=== PATIENT | male | born 1935 | race Caucasian/White ===

== ENCOUNTER 2017-11-07 20:11 | Inpatient (IN) | payer MEDICARE, BC ==
[~2017-11-07] VITALS: Ht 177.8 cm; Wt 77.0 kg
--- NOTE | ~2017-11-07 | HEMODYNAMI ---
PATIENT:DINA HENRY MEDICAL RECORD: [id number] : 39 LOCATION:[facility] D.2113 ADMISSION DATE: 11/08/17 Generatedon:11/15/201713:30 Patient name: DINA HENRY Patient #: [id number] SSN: : 1935 Date of study: 11/15/2017 Page: Of Hemodynamic Procedure Report Patient Data Patient Demographics Procedure consent was obtained First Name: DINA Gender: Male Last Name: ELAINE : 1935 [facility] Initial: SOLITARIO Age: 81 year(s) Patient #: [id number] Race: Unknown Additional ID: [id number] Contact details [address]: [address] [place] [address] [place] State: [place] City: [place] Zip code: [address] Past Medical History Allergies Allergen Reaction Date Comments Reported Other allergy 11/15/2017 PCN, Statin, Reductase Inhibitor. Admission Admission Data Admission Date: 11/08/2017 Admission Time: 12:04 Admit Source: Other Room #: D.2113 Weight (lbs.): 160 Weight (kg.): 72.57 Lab Results Lab Result Date: 11/15/2017 Lab Result Time: 4:54 Biochemistry Name Units Result Min Max BUN mg/dl 26 --(----)-* 7 18 Creatinine mg/dl 1.4 --(----)*- 0.6 1.3 CBC Name Units Result Min Max Hematocrit % 39.4 -*(----)-- 42 54 Hemoglobin g/dl 12.8 -*(----)-- 13.5 17.5 Coagulation Name Units Result Min Max INR units 1.59 --(----)-* 0.85 1.17 PT sec 18.5 --(----)-* 11.6 15 Procedure Procedure Types Cath Procedure Diagnostic Procedure [facility] w/Coronaries Aortic Root Angiography Procedure Description Procedure Date Procedure Date: 11/15/2017 Procedure Start Time: 12:35 Procedure End Time: 13:29 Procedure Staff Name Function Tigre Perry MD Performing Physician Romeo Eisenberg RT Monitor Bismark Givens RT Scrub Shiva Mullins RN Nurse Procedure Data Cath Procedure Fluoroscopy Diagnostic fluoroscopy Total fluoroscopy Time: time: 21.8 min 21.8 min Diagnostic fluoroscopy Total fluoroscopy dose: dose: 1400 mGy 1400 mGy Contrast Material Contrast Material Type Amount (ml) Isovue 300 85 Entry Location Entry Primary Successful Side Size Upsize Upsize Entry Closure Succes sful Closure Location (Fr) 1 (Fr) 2 (Fr) Remarks Device Remarks Femoral Right 5 Fr Exoseal artery Femoral Right 7 Fr Exoseal vein Short Estimated blood loss: 10 ml Diagnostic catheters Device Type Used For End Catheter Placement SWAN 7Fr Thermodilution Procedure cather (131F7P) MULTIPACK JL 4.0 5Fr Procedure catheter MULTIPACK 3DRC 5Fr Procedure catheter MULTIPACK Pigtail 5 Fr Procedure catheter DIAGNOSTIC MPA-2 5Fr Procedure catheter ([id number]) MULTIPACK Pigtail 5 Fr Procedure catheter Procedure Complications No complications Procedure Medications Medication Administration Route Dosage Heparin Flush Bag added to field 2 bags (1000units/500ml NS) 0.9% NaCl I.V. 100 ml/hr Benadryl I.V. 50 mg Oxygen etCO2 Nasal cannula 2 l/min Versed I.V. 1 mg Fentanyl I.V. 50 mcg Versed I.V. 1 mg Hemodynamics Rest Heart Rate: 106 (bpm) Oxygen Saturations Time Location Saturations Hgb (g/dl) O2 Content Use (%) (ml/L) 12:40 RV 12:40 RA 12:41 PA 12:41 PCW 57.9 Pressure Samples Time Site Value (mmHg) Purpose Heart Use Rate(bpm) 13:01 AO 98/74(85) Snapshot 80 13:07 LV 123/11,19 EDP 86 13:08 LV 121/71,74 Snapshot 92 13:14 LV 116/13,22 EDP 80 Snapshots Pre Cath Intra NCS Post Cath Vital Signs Time Heart Resp SPO2 etCO2 NIBP (mmHg) Rhythm Pain Sedation Rate (ipm) (%) (mmHg) Status Level (bpm) 12:23:06 82 25 76 0 116/70(85) NSR 0 (11) 10(A) , No pain 12:27:07 84 13 97 0 124/92(109) NSR 0 (11) 10(A) , No pain 12:31:11 80 16 98 0 132/95(117) NSR 0 (11) 10(A) , No pain 12:35:19 78 16 27.5 135/97(111) NSR 0 (11) 9(A) , No pain 12:39:39 85 17 98 0 124/86(110) NSR 0 (11) 9(A) , No pain 12:43:47 84 16 99 0 128/86(96) NSR 0 (11) 9(A) , No pain 12:47:55 88 16 99 0 112/84(106) NSR 0 (11) 9(A) , No pain 12:52:03 87 16 99 0 114/73(91) NSR 0 (11) 9(A) , No pain 12:56:11 72 17 98 0 116/78(92) NSR 0 (11) 9(A) , No pain 13:00:16 84 16 98 0 112/82(96) NSR 0 (11) 9(A) , No pain 13:04:26 56 17 99 0 120/80(106) NSR 0 (11) 9(A) , No pain 13:08:28 83 17 97 0 118/82(100) NSR 0 (11) 9(A) , No pain 13:12:36 76 17 99 2.2 132/78(100) NSR 0 (11) 9(A) , No pain 13:16:37 60 16 99 16.3 125/90(108) NSR 0 (11) 9(A) , No pain 13:21:32 83 17 99 20.8 123/87(113) NSR 0 (11) 9(A) , No pain 13:26:27 93 17 98 24.5 120/88(106) NSR 0 (11) 9(A) , No pain Medications Time Medication Route Dose Verified Delivered Reason Notes Effe ctiveness by by 12:24:53 Heparin Flush added 2 Tigre Shiva used for Bag to bags Vicky Mullins RN procedure (1000units/500ml field NS) 12:25:05 0.9% NaCl I.V. 100 Tigre Sihva Per ml/hr Vicky Mullins RN physician 12:25:13 Benadryl I.V. 50 mg Tigre Shiva Per Vicky Mullins RN physician MD 12:31:19 Oxygen etCO2 2 Tigre Shiva Per Nasal l/min Vicky Mullins RN physician cannula MD 12:34:45 Versed I.V. 1 mg Tigre Shiva for Vicky Mullins RN sedation 13:00:28 Fentanyl I.V. 50 Tigre Shiva for mcg Vicky Mullins RN sedation 13:05:54 Versed I.V. 1 mg Tigre Shiva for Vicky Mullins RN sedation Procedure Log Time Note 12:00:23 Shiva Mullins RN sent for patient. Start room use. 12:05:56 Informed consent obtained and on chart 12:07:59 Admit Source: Other 12:08:21 Diagnostic Cath status Elective 12::23 Time tracking: Regular hours (M-F 7:00 - 5:00) 12:08:27 Plan of Care:Hemodynamics will remain stable., Cardiac rhythm will remain stable., Comfort level will be maintained., Respiratory function will remain adequate., Patient/ family verbilizes understanding of procedure., Procedure tolerated without complication., Recovers from procedure without complications.. 12:09:57 Lab Result : Creatinine 1.4 mg/dl 12:09:57 Lab Result : BUN 26 mg/dl 12:09:57 Lab Result : Hemoglobin 12.8 g/dl 12:09:57 Lab Result : Hematocrit 39.4 % 12:09:57 Lab Result : INR 1.59 units 12:09:57 Lab Result : PT 18.5 sec 12:10:00 Lab results completed and on chart. 12:10:17 H&P Date Dictated: 11/08/2017 Within 30 days and on chart.. 12:15:51 Patient received from Med II to CCL 2 Alert and oriented. Tansferred to table in Supine position. 12:15:52 Warm blankets applied, and jennifer hugger turned on for patient comfort. 12:15:52 Correct patient and procedure confirmed by team. 12:15:53 ECG and BP/O2 sat monitors applied to patient. 12:15:54 Pre-procedure instructions explained to patient. 12:15:55 Pre-op teaching completed and patient verbalized understanding. 12:15:57 Family in patients room. 12:15:58 Patient NPO since Midnight. 12:16:27 Patient allergic to Other allergyPCN, Statin, Reductase Inhibitor. 12:21:48 Vital chart was started 12:24:53 Heparin Flush Bag (1000units/500ml NS) 2 bags added to field was administered by Shiva Mullins RN; used for procedure; 12:25:05 0.9% NaCl 100 ml/hr I.V. was administered by Shiva Mullins RN; Per physician; 12:25:13 Benadryl 50 mg I.V. was administered by Shiva Mullins RN; Per physician; 12:29:54 Is the patient allergic to Iodine/contrast media? No. 12:29:55 Is patient on blood thinner?No 12:29:57 Patient diabetic? No. 12:30:00 Previous problem with sedation/anesthesia? No ? 12:30:03 Snore? Yes 12:30:04 Sleep apnea? No 12:30:05 Deviated septum? No 12:30:05 Opens mouth fully? Yes 12:30:06 Sticks out tongue? Yes 12:30:09 Airway obstruction? No ? 12:30:11 Dentures? No ? 12:30:13 Pre procedure: right dorsailis pedis pulse 1+ Palpable, but thready & weak; easily obliterated 12:30:16 Patient pain scale 0/10 ?. 12:31:06 IV patent on arrival in right hand with 0.9% NaCl at [facility]. 12:31:09 Right groin area was prepped with chlora-prep and draped in sterile fashion 12:31:11 Alarms reviewed by R. N. 12:31:11 Sharps counted by scrub and verified by R.N. 12:31:19 Oxygen 2 l/min etCO2 Nasal cannula was administered by Shiva Mullins RN; Per physician; 12:31:21 --------ALL STOP TIME OUT------ 12:31:22 Final Timeout: patient, procedure, and site verified with staff and physician. All members of the team are in agreement. 12:31:36 Right groin site verified by team. 12:31:38 Physical assessment completed. ASA score P 2 - A patient with mild systemic disease as per Tigre Perry MD. 12:31:42 Sedation plan: IV Moderate Sedation Medication:Versed, Fentanyl 12:34:17 Use device set Femoral Dx 12:34:25 Use device set Right Heart Kit 12:34:36 Tegaderm 4 x 4 (1626W) opened to sterile field. 12:34:36 PERCUTANEOUS ENTRY 19GA needle opened to sterile field. 12:34:38 ACIST Manifold (96369) opened to sterile field. 12:34:39 ACIST Hand Control (08908) opened to sterile field. 12:34:40 ACIST Syringe (54305) opened to sterile field. 12:34:41 Bag Decanter (2002S) opened to sterile field. 12:34:44 Medline Cath Pack ([id number]) opened to sterile field. 12:34:45 Versed 1 mg I.V. was administered by Shiva Mullins RN; for sedation; 12:34:49 DIAGNOSTIC WIRE .035 260cm J wire (054421) opened to sterile field. 12:34:50 DIAGNOSTIC Multipack 5Fr catheter set ([id number]) opened to sterile field. 12:34:51 MICROPUNCTURE 4FR Cook (I53972) opened to sterile field. 12:34:53 SHEATH Prelude 5Fr 0.035 (HUQ-4F-79-035) opened to sterile field. 12:34:58 SHEATH 7FR [place] (BRG807) opened to sterile field. 12:35:27 Procedure started. 12:35:27 Full Disclosure recording started 12:35:30 Local anesthetic to right femoral artery with Lidocaine 2% by Tigre Perry MD.INITIAL ACCESS ONLY 12:39:13 Access obtained with 4Fr micropunture. 12:39:30 A 5 Fr sheath was inserted into the Right Femoral artery 12:39:37 A 7 Fr Short sheath was inserted into the Right Femoral vein 12:40:00 A SWAN 7Fr Thermodilution cather (131F7P) was advanced over the wire and used for Procedure. 12:40:31 Zero performed for pressure channel P1 12:40:34 Zero performed for pressure channel P1 12:40:55 RV saturation: % 12:40:57 RA saturation: % 12:41:03 PA saturation: % 12:41:11 PCW saturation: 57.9% 12:42:12 Patient Weight : 160 lbs 12:42:58 DIAGNOSTIC WIRE .025 150cm J (600823) opened to sterile field. 12:43:17 .025 J wire used to advanced catheter. 12:43:31 Baseline sample Acquired. 12:43:35 Rhythm: sinus rhythm 13:00:16 Unable to advance catheter to obtain appropriate measurements. Catheter removed. 13:00:28 Fentanyl 50 mcg I.V. was administered by Shiva Mullins RN; for sedation; 13:00:36 A MULTIPACK JL 4.0 5Fr catheter was advanced over the wire and used for Procedure. 13:01:45 LCA angiography performed. 13:02:48 Catheter exchanged over wire. 13:03:11 A MULTIPACK 3DRC 5Fr catheter was advanced over the wire and used for Procedure. 13:04:03 RCA angiography performed. 13:04:59 Catheter exchanged over wire. 13:05:54 Versed 1 mg I.V. was administered by Shiva Mullins RN; for sedation; 13:06:40 A MULTIPACK Pigtail 5 Fr catheter was advanced over the wire and used for Procedure. 13:08:58 LV hemodynamics recorded. 13:10:32 Catheter exchanged over wire. 13:11:11 GLIDE WIRE ANGLE 260cm (AW4785) opened to sterile field. 13:11:15 A DIAGNOSTIC MPA-2 5Fr catheter (213604P) was advanced over the wire and used for Procedure. 13:13:56 Glidewire advanced to cross valve. 13:14:23 LV angiography performed. 13:14:24 LV gram done using RED 13:16:14 Injector settings: Ml/sec: 8, Volume: 20, 13:16:18 Catheter exchanged over wire. 13:16:32 A MULTIPACK Pigtail 5 Fr catheter was advanced over the wire and used for Procedure. 13:18:06 Aortic Root visualized 13:18:12 Injector settings: Ml/sec: 15, Volume: 30, 13:18:18 Catheter exchanged over wire. 13:18:35 EXOSEAL 5Fr (EX500) opened to sterile field. 13:18:44 EXOSEAL 7Fr (EX700) opened to sterile field. 13:20:16 Sheath removed intact; hemostasis achieved with Exoseal to the Right Femoral artery. 13:20:22 Sheath removed intact; hemostasis achieved with Exoseal to the Right Femoral vein. 13:20:43 Procedure ended.(Physican Out) 13:21:30 Fluoroscopy time 21.80 minutes. 13:21:36 Flurop Dose total: 1400 13:21:36 Fluoroscopy dose: 1400 mGy 13:22:21 Contrast amount:Isovue 300 85ml. 13:22:23 Sharps counted by scrub and verified by R.N. 13:22:27 Insertion/operative site no bleeding no hematoma. 13:22:41 Post-op/insertion site Right Femoral artery dressed using a 4 x 4 and Tegaderm. 13:22:45 Post Procedure Pulses reassessed and unchanged 13:23:03 Post-procedure physical assessment completed. ASA score P 2 - A patient with mild systemic disease as per Tigre Perry MD. 13:23:08 Post procedure rhythm: unchanged. 13:23:15 Estimated blood loss: 10 ml 13:23:21 Post procedure instruction explained to patient.Patient verbalizes understanding. 13:23:22 Patient needs reinforcement of post procedure teaching. 13:23:40 Procedure type changed to Cath procedure, Diagnostic procedure, LHC, LHC w/Coronaries, Aortic Root Angiography 13:23:46 Procedure Complication : No complications 13:26:03 Procedure and supply charges have been captured, reviewed, submitted and are correct. 13:29:52 Vital chart was stopped 13:29:52 See physician's report for complete and final results. 13:29:54 Report given to PCU. 13:29:57 Patient transfered to PCU with Bed. 13:29:58 Procedure ended. 13:29:58 Full Disclosure recording stopped 13:30:06 End room use (Document Last) Device Usage Item Name Manufacture Quantity Catalog Number Hospital Part Current M inimal Lot# / Charge Number Stock Stock Serial# Code Tegaderm 4 x 4 3M 1 [id number] [id number] 5 (1626W) PERCUTANEOUS Cook Medical 1 [id number] 143339 [id number] 5 ENTRY 19GA needle ACIST Manifold Acist 1 96392 857502 706017 575135 5 (67710) [employer] Inc ACIST Hand Acist 1 51353 547505 833216 015487 5 Control (89507) [employer] Inc ACIST Syringe Acist 1 66558 419959 792017 703156 2 0 (71987) Medical Systems Inc Bag Decanter Microtek 1 335126 07359 270393 5 () Medical Inc. Medline Cath Cardinal 1 [id number] 288011 31702 186690 5 Pack Health ([id number]) DIAGNOSTIC WIRE [place] 1 594561 870464 922538 074383 3 0 .035 260cm J wire (474838) DIAGNOSTIC Cardinal 1 JC8243 461743 95940 954030 3 0 Multipack 5Fr Health catheter set (KZ9435) MICROPUNCTURE Cook Medical 1 Y28011 367720 718321 948532 5 4FR Cook (O61555) SHEATH Prelude Merit 1 PFQ-9K-24-035 580116 612507 507248 5 5Fr 0.035 Medical (ECW-5I-36-035) SHEATH 7FR Terumo 1 BYT849 072187 090789 549673 5 [place] (OCZ654) SWAN 7Fr Pandya 1 131F7P 604927 43961 422418 3 Thermodilution Lifesciences cather (131F7P) DIAGNOSTIC WIRE [place] 1 265581 020301 479537 523056 2 .025 150cm J (297626) MULTIPACK JL Cardinal 1 510494 5 4.0 5Fr Health catheter MULTIPACK 3DRC Cardinal 1 599029 5 5Fr catheter Health MULTIPACK Cardinal 1 815236 5 Pigtail 5 Fr Health catheter GLIDE WIRE Terumo 1 SF1157 733630 712191 375540 5 ANGLE 260cm (IF2726) DIAGNOSTIC Cardinal 1 [id number] 053042 608748 313740 5 MPA-2 5Fr Health catheter (947653W) EXOSEAL 5Fr Cardinal 1 EX500 754386 775574 571535 1 0 (EX500) Health EXOSEAL 7Fr Cardinal 1 EX700 190822 067545 021921 5 (EX700) Health Signature Audit [place] Stage Time Signature Unsigned Intra-Procedure 11/15/2017 Romeo Eisenberg 1:30:29 PM RT(R) Signatures Monitor : Romeo Eisenberg RT Signature : Date : Time : [address] [place] [address]
--- NOTE | ~2017-11-07 | EC ---
PATIENT:DINA HENRY DATE OF SERVICE: 11/08/17 SEX: M MEDICAL RECORD: [id number] DATE OF : 39 LOCATION:D.M2 D.211 AGE OF PATIENT: 81 ADMISSION DATE: 11/08/17 REFERRING PHYSICIAN: INTERPRETING PHYSICIAN: DEEPAK VELA MD ECHOCARDIOGRAM REPORT ECHO CHARGES 4 ECHO COMPLETE Date: 11/08 CLINICAL DIAGNOSIS: CHF HX OF ICD/MURMUR ECHOCARDIOGRAPHIC MEASUREMENTS (adult normal given) AC root (d.<3.7cm) 4.3 cm LV Septum d (<1.2 cm> 1.9 cm Valve Excursion 1.4 cm LV Septum (systole) 2.5 cm Left Atria (s.<4.0cm> 6.7 cm LVPW d(<1.2cm) 1.8 cm RV (d.<2.3cm) 5.5 cm LVPW (sytole) 2.0 cm LV diastole(<5.6CM) 5.3 cm MV E-F(>70mm/sec) cm LV systole 3.4 cm LVOT Diameter 1.7 cm MV exc.(>10mm) 2.0 cm Est.ejection fraction (50-75%) % DOPPLER: LVIT cm/sec A 65.0 cm/sec E 131 cm/sec LA cm/sec RVSP 36 mmHg LVOT 98 cm/sec AOP1/2T m/s Asc. Ao 202 cm/sec RVOT 61 cm/sec RA cm/sec PA 148 cm/sec AV Gradient Peak 16.28mmHg AV Mean 9.18 mmHg AV Area 1.1 cm MV Gradient Peak 13.79mmHg MV Mean 4.42 mmHg MV Area cm COMMENTS: Reclamation Engineer: Dwight OQUENDO Membership Advisor: 1 Dr. Vela TAPE# PACS Pericardial Effusion N DATE OF SERVICE: 11/08/2017 PROCEDURE: Echocardiogram. FINDINGS: 1. Left ventricular chamber size is within normal limits. Left ventricular systolic function is normal. Overall ejection fraction estimated at 55%. 2. Left atrium is enlarged at 5.5 cm. Right atrium and right VENTRICULAR CHAMBER sizes are as well mildly dilated. 3. Valvular structures: Aortic valve demonstrates mild calcific aortic ECHOCARDIOGRAM REPORT [id number] DINA HENRY stenosis, valve area calculates 1.1 cm-squared gradient of 60 mm across the valve. The remaining valvular structures have normal structure and motion. 4. Doppler interrogation elsewise reveals mild mitral regurgitation, mild tricuspid regurgitation, no other valvular insufficiency or stenosis. Pulmonary systolic pressure is estimated 36 mmHg. 5. No evidence of pericardial effusion or left ventricular thrombus. TRANSINT:[id number] Voice Confirmation ID: [id number] DOCUMENT ID: [id number] DEEPAK VELA MD at 1218 CC: [id number] DICTATION DATE: 11/08/17 1551 SCHOOL LUNCH MONITOR: 11/08/17 1638 ADM IN [facility] [address] [id number]
--- NOTE | ~2017-11-07 | HEMODYNAMI ---
PATIENT:DINA HENRY MEDICAL RECORD: [id number] : 37 LOCATION:[facility] D.2113 ADMISSION DATE: 11/08/17 Generatedon:11/17/20179:20 Patient name: DINA HENRY Patient #: [id number] SSN: : 1935 Date of study: 11/17/2017 Page: Of Hemodynamic Procedure Report Patient Data Patient Demographics Procedure consent was obtained First Name: DINA Gender: Male Last Name: ELAINE : 1935 [facility] Initial: SOLITARIO Age: 81 year(s) Patient #: [id number] Race: Unknown Additional ID: [id number] Contact details Address: [address] [place] [address] [place] State: [place] City: [place] Zip code: [address] Past Medical History Allergies Allergen Reaction Date Comments Reported Other allergy 11/15/2017 PCN, Statin, Reductase Inhibitor. Admission Admission Data Admission Date: 11/08/2017 Admission Time: 12:04 Admit Source: Other Room #: D.2113 Weight (lbs.): 160 Weight (kg.): 72.57 Lab Results Lab Result Date: 11/15/2017 Lab Result Time: 4:54 Biochemistry Name Units Result Min Max BUN mg/dl 26 --(----)-* 7 18 Creatinine mg/dl 1.4 --(----)*- 0.6 1.3 CBC Name Units Result Min Max Hematocrit % 39.4 -*(----)-- 42 54 Hemoglobin g/dl 12.8 -*(----)-- 13.5 17.5 Coagulation Name Units Result Min Max INR units 1.59 --(----)-* 0.85 1.17 PT sec 18.5 --(----)-* 11.6 15 Procedure Procedure Types Cath Procedure Diagnostic Procedure CHUCKY Procedure Description Procedure Date Procedure Date: 11/17/2017 Procedure Start Time: 9:05 Procedure End Time: 9:13 Procedure Staff Name Function Jaqui Stock RT Monitor Yessenia Baker RN Nurse Jovanni Obrien MD Additional personnel Michael Baum Auto Rental Clerk Tigre Perry MD Performing Physician Leora Griggs RT Scrub Procedure Data Cath Procedure Fluoroscopy Diagnostic fluoroscopy Total fluoroscopy Time: 0 time: 0 min min Diagnostic fluoroscopy Total fluoroscopy dose: 0 dose: 0 mGy mGy Contrast Material Contrast Material Type Amount (ml) Isovue 300 0 Estimated blood loss: 0 ml Procedure Complications No complications Procedure Medications Medication Administration Route Dosage Oxygen NC 2 l/min Refer to Anesthesia Notes for Sedation Medications unlisted medication Hemodynamics Rest HGB: 12.8 (g/dl) Heart Rate: 88 (bpm) Snapshots Pre Cath Intra NCS Post Cath Vital Signs Time Heart Resp SPO2 etCO2 NIBP (mmHg) Rhythm Pain Sedation Rate (ipm) (%) (mmHg) Status Level (bpm) 8:49:20 89 16 96 0 132/81(108) A-Fib 0 (11) 10(A) , No pain 8:54:38 93 12 99 30.6 119/73(103) A-Fib 0 (11) 10(A) , No pain 8:59:16 62 19 100 27.6 130/91(115) A-Fib 0 (11) 10(A) , No pain 9:03:59 89 13 100 29.9 134/91(106) A-Fib 0 (11) 10(A) , No pain 9:08:44 96 12 98 23.1 137/83(99) A-Fib 0 (11) 9(A) , No pain 9:13:24 93 13 98 27.6 114/69(97) A-Fib 0 (11) 9(A) , No pain 9:18:30 88 14 100 17.9 102/62(85) A-Fib 0 (11) 10(A) , No pain Medications Time Medication Route Dose Verified Delivered Reason Notes Effectiven ess by by 8:52:57 Oxygen NC 2 Tigre Casas used for l/min Vicky Baker RN procedure MD 8:53:02 Refer to Tigre Casas Anesthesia Vicky Baker RN Notes for MD Sedation Medications 8:58:35 maalox and gargle Tigreivette Casas visc Vicky Baker RN lidocaine Procedure Log Time Note 8:39:17 Patient Weight : 160 lbs 8:39:52 Informed consent obtained and on chart 8:39:58 Diagnostic Cath Status : Elective 8:40:17 Leora Griggs RT(R) sent for patient. Start room use. 8:40:18 Time tracking: Regular hours (M-F 7:00 - 5:00) 8:40:24 Plan of Care:Hemodynamics will remain stable., Cardiac rhythm will remain stable., Comfort level will be maintained., Respiratory function will remain adequate., Patient/ family verbilizes understanding of procedure., Procedure tolerated without complication., Recovers from procedure without complications.. 8:42:47 Patient received from Med II to CCL 1 Alert and oriented. Tansferred to table in Supine position. 8:42:49 ECG and BP/O2 sat monitors applied to patient. 8:42:49 Correct patient and procedure confirmed by team. 8:42:49 Warm blankets applied, and jennifer hugger turned on for patient comfort. 8:46:14 Baseline sample Acquired. 8:46:49 Rhythm: atrial fibrillation 8:46:50 Full Disclosure recording started 8:46:54 H&P Date Dictated: 11/17/2017 Within 30 days and on chart.. 8:46:57 Pre-op teaching completed and patient verbalized understanding. 8:46:57 Pre-procedure instructions explained to patient. 8:46:59 Family in waiting room. 8:47:00 Patient NPO since Midnight. 8:47:03 Is the patient allergic to Iodine/contrast media? No. 8:47:04 Was the patient premedicated? No 8:47:32 Is patient on blood thinner?No 8:47:34 Patient diabetic? No. 8:47:37 Previous problem with sedation/anesthesia? No ? 8:47:39 Snore? Yes 8:47:41 Sleep apnea? No 8:47:42 Opens mouth fully? Yes 8:47:42 Deviated septum? No 8:47:43 Sticks out tongue? Yes 8:47:46 Airway obstruction? No ? 8:47:56 Dentures? No loose teeth 8:48:05 Pre procedure: right dorsailis pedis pulse 2+ Normal; easily identifiable; not easily obliterated 8:48:07 Pre procedure: left dorsailis pedis pulse 2+ Normal; easily identifiable; not easily obliterated 8:48:09 Patient pain scale 0/10 ?. 8:48:15 IV patent on arrival in right hand with 0.9% NaCl at KVO. 8:48:17 Lab results completed and on chart. 8:48:29 Vital chart was started 8:48:45 Alarms reviewed by R. N. 8:48:46 Sharps counted by scrub and verified by R.N. 8:48:50 --------ALL STOP TIME OUT------ 8:48:50 Physician arrived 8:48:51 Final Timeout: patient, procedure, and site verified with staff and physician. All members of the team are in agreement. 8:48:58 Physical assessment completed. ASA score P 3 - A patient with severe systemic disease as per Tigre Perry MD. 8:49:03 Sedation plan: TIVA Medication:Propofol 8:50:27 Jovanni Obrien MD present and monitoring patient for TIVA. 8:52:57 Oxygen 2 l/min NC was administered by Yessenia Baker RN; used for procedure; 8:53:02 Refer to Anesthesia Notes for Sedation Medications was administered by Yessenia Baker RN; ; 8:58:35 maalox and visc lidocaine gargle was administered by Yessenia Baker RN; ; 9:03:48 Michael Baum Cake Press Operator present for CHUCKY. 9:05:36 Procedure started. 9:05:37 CHUCKY started. 9:11:48 CHUCKY completed. 9:12:00 Procedure ended.(Physican Out) 9:12:10 Fluoroscopy time 00.00 minutes. 9:12:14 Fluoroscopy dose: 0 mGy 9:12:14 Flurop Dose total: 0 9:12:18 Contrast amount:Isovue 300 0ml. 9:12:20 Sharps counted by scrub and verified by R.N. 9:12:23 Insertion/operative site no bleeding no hematoma. 9:12:35 Post Procedure Pulses reassessed and unchanged 9:12:38 Post procedure rhythm: unchanged. 9:12:41 Estimated blood loss: 0 ml 9:12:43 Post procedure instruction explained to patient.Patient verbalizes understanding. 9:12:44 Patient needs reinforcement of post procedure teaching. 9:12:49 Procedure and supply charges have been captured, reviewed, submitted and are correct. 9:12:55 Procedure Complication : No complications 9:12:58 See physician's report for complete and final results. 9:12:58 Vital chart was stopped 9:13:04 Report given to Med II. 9:13:18 Patient transfered to Med II with Stretcher. 9:13:20 Full Disclosure recording stopped 9:13:20 Procedure ended. 9:13:25 End room use (Document Last) Signature Audit [place] Stage Time Signature Unsigned Intra-Procedure 11/17/2017 Jaqui Stock RT(R) 9:19:34 AM RT(R) 11/17/2017 9:20:26 AM Intra-Procedure 11/17/2017 Jaqui Stock 9:20:50 AM RT(R) Signatures Monitor : Jaqui Stock RT Signature : Date : Time : [id number] [place] [address]
[2017-11-07 21:14] LABS: ALBUMIN 3.4 g/dL (3.4-5.0); ANION GAP 11.6 mmol/L (8-16); BILIRUBIN - TOTAL 3.48 mg/dL (0.2-1.3); CALCIUM 9.2 mg/dL (8.5-10.1); CARBON DIOXIDE 30.2 mmol/L (21.0-32.0); CREATININE - SERUM 1.4 mg/dL (0.6-1.3); POTASSIUM - SERUM 4.8 mmol/L (3.5-5.1); PROTEIN - SERUM 6.3 g/dL (6.4-8.2)
[2017-11-07 21:31] LABS: BASOPHILS 0.5 % (0-2); EOSINOPHILS 1.7 % (0-7); HEMATOCRIT 41.9 % (42.0-54.0); HEMOGLOBIN 14.1 g/dL (13.5-17.5); IMMATURE GRANULOCYTES 0.2 % (0-5); LYMPHOCYTES 17.5 % (15-50); MCH 35.4 pg (26.0-34.0); MCHC 33.7 g/dL (31.0-37.0); MCV 105.3 fL (80.0-100.0); MEAN PLATELET VOLUME 11.5 fL (7.4-10.4); MONOCYTES 15.1 % (2-11); PLATELET COUNT 89 10x3/uL (130-400); RBC 3.98 10x6/uL (4.20-6.10); WBC 4.2 10x3/uL (4.8-10.8)
[2017-11-07 21:54] LABS: INR 2.37 (0.85-1.17); PROTIME 25.2 SECONDS (11.6-15.0)
[2017-11-07 22:04] LABS: APPEARANCE CLEAR (CLEAR); BILIRUBIN NEGATIVE (NEGATIVE); COLOR YELLOW (YELLOW); GLUCOSE NEGATIVE (NEGATIVE); KETONE NEGATIVE (NEGATIVE); NITRITE NEGATIVE (NEGATIVE); PROTEIN TRACE mg/dL (NEGATIVE); SPECIFIC GRAVITY 1.015 (1.005-1.020); UROBILINOGEN NORMAL (NORMAL)
[2017-11-07 22:49] LABS: PLATELET ESTIMATE DECREASED
[2017-11-07] MEDS ORDERED: BETAPACE 80 MG80 MG PO (23:13)
[2017-11-07] MEDS ORDERED: BUMEX2 MG PO (23:13)
[2017-11-07] MEDS ORDERED: KEFLEX500 MG PO (23:14)
[2017-11-07] MEDS ORDERED: K-DUR20 MEQ PO (23:14)
[2017-11-07] MEDS ORDERED: COUMADIN3 MG PO (23:15)
[2017-11-07] MEDS ORDERED: MILK OF MAGNESI30 ML PO (23:16)
[2017-11-07] MEDS ORDERED: COLACE100 MG PO (23:16)
[2017-11-07] MEDS ORDERED: MORPHINE IMMEDI15 MG PO (23:18)
[2017-11-08 00:31] VITALS: BMI 26.6
[2017-11-08 00:49] VITALS: BP 107/47
[2017-11-08 05:12] VITALS: BP 113/63
[2017-11-08 08:14] VITALS: BP 101/72
[2017-11-08 11:53] VITALS: BP 100/61
[2017-11-08 14:12] VITALS: BMI 27.4
[2017-11-08 17:06] VITALS: BP 108/63
[2017-11-08 19:32] LABS: % SATURATION 23 % (15-55); IRON 60 ug/dl (35-150); TOTAL IRON BIND CAPACITY 251 ug/dl (260-445); UNSAT IRON BIND CAPACITY 191 ug/dl (150-375)
[2017-11-08 21:09] VITALS: BP 107/63
[2017-11-09 05:54] VITALS: BP 100/59
[2017-11-09 06:50] LABS: BASOPHILS 0.5 % (0-2); EOSINOPHILS 3.5 % (0-7); HEMATOCRIT 38.7 % (42.0-54.0); LYMPHOCYTES 22.4 % (15-50); MCH 34.9 pg (26.0-34.0); MCHC 33.6 g/dL (31.0-37.0); MCV 103.8 fL (80.0-100.0); MEAN PLATELET VOLUME 11.6 fL (7.4-10.4); MONOCYTES 18.9 % (2-11); NEUTROPHILS 54.7 % (40-80); PLATELET COUNT 79 10x3/uL (130-400); RBC 3.73 10x6/uL (4.20-6.10); RDW 17.2 % (11.5-14.5); WBC 3.8 10x3/uL (4.8-10.8)
[2017-11-09 07:05] LABS: ANION GAP 12.5 mmol/L (8-16); CALCIUM 8.7 mg/dL (8.5-10.1); CARBON DIOXIDE 28.4 mmol/L (21.0-32.0); CREATININE - SERUM 1.5 mg/dL (0.6-1.3)
[2017-11-09 07:06] LABS: POTASSIUM - SERUM 3.9 mmol/L (3.5-5.1)
[2017-11-09 08:52] VITALS: BP 108/83
[2017-11-09 12:47] VITALS: BP 117/73
[2017-11-09 16:07] LABS: INR 3.23 (0.85-1.17); PROTIME 32.2 SECONDS (11.6-15.0)
[2017-11-09 18:08] VITALS: BP 116/80
[2017-11-09 20:00] VITALS: BP 94/46
[2017-11-09 22:40] LABS: INR 2.92 (0.85-1.17); PROTIME 29.7 SECONDS (11.6-15.0)
[2017-11-10] VITALS: BP 112/69
[2017-11-10 04:00] VITALS: BP 105/71
[2017-11-10 05:23] LABS: BASOPHILS 0.3 % (0-2); EOSINOPHILS 2.1 % (0-7); HEMATOCRIT 39.1 % (42.0-54.0); HEMOGLOBIN 13.1 g/dL (13.5-17.5); LYMPHOCYTES 16.5 % (15-50); MCH 35.2 pg (26.0-34.0); MCHC 33.5 g/dL (31.0-37.0); MCV 105.1 fL (80.0-100.0); MEAN PLATELET VOLUME 11.4 fL (7.4-10.4); NEUTROPHILS 57.1 % (40-80); PLATELET COUNT 88 10x3/uL (130-400); RBC 3.72 10x6/uL (4.20-6.10); RDW 17.5 % (11.5-14.5); WBC 3.8 10x3/uL (4.8-10.8)
[2017-11-10 05:44] LABS: ANION GAP 9.9 mmol/L (8-16); CALCIUM 8.6 mg/dL (8.5-10.1); CREATININE - SERUM 1.4 mg/dL (0.6-1.3); POTASSIUM - SERUM 3.9 mmol/L (3.5-5.1)
[2017-11-10 06:53] LABS: INR 3.08 (0.85-1.17); PROTIME 31.1 SECONDS (11.6-15.0)
[2017-11-10 08:39] VITALS: BP 105/71
[2017-11-10 09:46] LABS: FOLATE (FOLIC ACID) - SERUM 18.1 ng/mL (>3.0)
[2017-11-10 11:57] VITALS: BP 108/69
[2017-11-10 15:54] VITALS: BP 110/53
[2017-11-10 20:00] VITALS: BP 118/70
[2017-11-10 20:15] LABS: PROTIME 25.4 SECONDS (11.6-15.0)
[2017-11-10 20:24] LABS: INR 2.39 (0.85-1.17)
[2017-11-11] VITALS: BP 106/66
[2017-11-11 04:00] VITALS: BP 134/80
[2017-11-11 05:48] LABS: BASOPHILS 0.5 % (0-2); EOSINOPHILS 2.9 % (0-7); HEMATOCRIT 39.6 % (42.0-54.0); HEMOGLOBIN 13.2 g/dL (13.5-17.5); IMMATURE GRANULOCYTES 0.3 % (0-5); LYMPHOCYTES 17.5 % (15-50); MCH 34.9 pg (26.0-34.0); MCHC 33.3 g/dL (31.0-37.0); MCV 104.8 fL (80.0-100.0); MONOCYTES 20.9 % (2-11); NEUTROPHILS 57.9 % (40-80); PLATELET COUNT 90 10x3/uL (130-400); RBC 3.78 10x6/uL (4.20-6.10); RDW 17.6 % (11.5-14.5); WBC 3.8 10x3/uL (4.8-10.8)
[2017-11-11 05:58] LABS: ANION GAP 10.2 mmol/L (8-16); CALCIUM 8.6 mg/dL (8.5-10.1); CARBON DIOXIDE 31.6 mmol/L (21.0-32.0); CREATININE - SERUM 1.4 mg/dL (0.6-1.3); POTASSIUM - SERUM 3.8 mmol/L (3.5-5.1)
[2017-11-11 08:16] VITALS: BP 88/58
[2017-11-11 09:42] LABS: INR 2.18 (0.85-1.17); PROTIME 23.6 SECONDS (11.6-15.0)
[2017-11-11 11:59] VITALS: BP 103/62
[2017-11-11 16:04] VITALS: BP 112/66
[2017-11-11 20:44] VITALS: BP 118/74
[2017-11-12 01:11] VITALS: BP 105/66
[2017-11-12 05:43] LABS: ANION GAP 9.2 mmol/L (8-16); CALCIUM 8.3 mg/dL (8.5-10.1); CARBON DIOXIDE 30.5 mmol/L (21.0-32.0); CREATININE - SERUM 1.2 mg/dL (0.6-1.3); POTASSIUM - SERUM 3.7 mmol/L (3.5-5.1)
[2017-11-12 05:46] VITALS: BP 104/64
[2017-11-12 05:47] LABS: INR 1.96 (0.85-1.17); PROTIME 21.7 SECONDS (11.6-15.0)
[2017-11-12 05:49] LABS: BASOPHILS 0.8 % (0-2); EOSINOPHILS 3.2 % (0-7); HEMATOCRIT 38.6 % (42.0-54.0); HEMOGLOBIN 12.8 g/dL (13.5-17.5); LYMPHOCYTES 20.2 % (15-50); MCH 34.9 pg (26.0-34.0); MCHC 33.2 g/dL (31.0-37.0); MCV 105.2 fL (80.0-100.0); MEAN PLATELET VOLUME 11.9 fL (7.4-10.4); MONOCYTES 18.4 % (2-11); NEUTROPHILS 57.4 % (40-80); PLATELET COUNT 79 10x3/uL (130-400); RBC 3.67 10x6/uL (4.20-6.10); RDW 17.8 % (11.5-14.5); WBC 3.8 10x3/uL (4.8-10.8)
[2017-11-12 08:26] VITALS: BP 94/55
[2017-11-12 11:51] VITALS: BP 103/67
[2017-11-12 16:33] VITALS: BP 106/66
[2017-11-12 20:46] VITALS: BP 106/53
[2017-11-13 01:06] VITALS: BP 87/40
[2017-11-13 06:10] VITALS: BP 89/55
[2017-11-13 06:22] LABS: BASOPHILS 0.3 % (0-2); EOSINOPHILS 4.2 % (0-7); HEMATOCRIT 39.6 % (42.0-54.0); IMMATURE GRANULOCYTES 0.3 % (0-5); LYMPHOCYTES 17.2 % (15-50); MCH 34.7 pg (26.0-34.0); MCHC 32.8 g/dL (31.0-37.0); MCV 105.6 fL (80.0-100.0); MEAN PLATELET VOLUME 11.2 fL (7.4-10.4); MONOCYTES 17.7 % (2-11); NEUTROPHILS 60.3 % (40-80); PLATELET COUNT 75 10x3/uL (130-400); RBC 3.75 10x6/uL (4.20-6.10); RDW 17.8 % (11.5-14.5); WBC 3.6 10x3/uL (4.8-10.8)
[2017-11-13 06:43] LABS: ANION GAP 11.3 mmol/L (8-16); CALCIUM 8.5 mg/dL (8.5-10.1); CARBON DIOXIDE 30.2 mmol/L (21.0-32.0); CREATININE - SERUM 1.2 mg/dL (0.6-1.3); POTASSIUM - SERUM 3.5 mmol/L (3.5-5.1)
[2017-11-13 08:44] LABS: INR 1.73 (0.85-1.17); PROTIME 19.7 SECONDS (11.6-15.0)
[2017-11-13 09:25] VITALS: BP 89/47
[2017-11-13 12:37] VITALS: BP 103/67
[2017-11-13 17:32] VITALS: BP 88/44
[2017-11-13 20:00] VITALS: BP 102/69
[2017-11-14] VITALS: BP 100/47
[2017-11-14 04:00] VITALS: BP 150/60
[2017-11-14 06:01] LABS: INR 1.64 (0.85-1.17); PROTIME 18.9 SECONDS (11.6-15.0)
[2017-11-14 06:02] LABS: ANION GAP 8.4 mmol/L (8-16); CALCIUM 8.6 mg/dL (8.5-10.1); CARBON DIOXIDE 33.5 mmol/L (21.0-32.0); CREATININE - SERUM 1.3 mg/dL (0.6-1.3); POTASSIUM - SERUM 3.9 mmol/L (3.5-5.1)
[2017-11-14 06:03] LABS: BASOPHILS 0.3 % (0-2); EOSINOPHILS 3.4 % (0-7); HEMATOCRIT 39.1 % (42.0-54.0); HEMOGLOBIN 12.6 g/dL (13.5-17.5); LYMPHOCYTES 17.3 % (15-50); MCH 34.1 pg (26.0-34.0); MCHC 32.2 g/dL (31.0-37.0); MEAN PLATELET VOLUME 11.2 fL (7.4-10.4); MONOCYTES 18.1 % (2-11); NEUTROPHILS 60.9 % (40-80); PLATELET COUNT 79 10x3/uL (130-400); RBC 3.69 10x6/uL (4.20-6.10); RDW 17.9 % (11.5-14.5); WBC 3.9 10x3/uL (4.8-10.8)
[2017-11-14 08:11] VITALS: BP 118/63
[2017-11-14 12:24] VITALS: BP 105/71
[2017-11-14 15:31] VITALS: BP 102/60
[2017-11-14 20:00] VITALS: BP 99/53
[2017-11-15 06:09] LABS: BASOPHILS 0.3 % (0-2); EOSINOPHILS 3.7 % (0-7); HEMATOCRIT 39.4 % (42.0-54.0); HEMOGLOBIN 12.8 g/dL (13.5-17.5); LYMPHOCYTES 22.3 % (15-50); MCH 34.8 pg (26.0-34.0); MCHC 32.5 g/dL (31.0-37.0); MCV 107.1 fL (80.0-100.0); MEAN PLATELET VOLUME 11.4 fL (7.4-10.4); MONOCYTES 16.8 % (2-11); NEUTROPHILS 56.9 % (40-80); PLATELET COUNT 84 10x3/uL (130-400); RBC 3.68 10x6/uL (4.20-6.10); RDW 17.9 % (11.5-14.5); WBC 3.3 10x3/uL (4.8-10.8)
[2017-11-15 06:23] LABS: ANION GAP 9.7 mmol/L (8-16); CALCIUM 8.2 mg/dL (8.5-10.1); CARBON DIOXIDE 34.1 mmol/L (21.0-32.0); CREATININE - SERUM 1.4 mg/dL (0.6-1.3); POTASSIUM - SERUM 3.8 mmol/L (3.5-5.1)
[2017-11-15 06:28] LABS: INR 1.59 (0.85-1.17); PROTIME 18.5 SECONDS (11.6-15.0)
[2017-11-15 08:24] VITALS: BP 114/60
[2017-11-15 12:35] VITALS: BP 88/55
[2017-11-15 13:10] VITALS: BP 108/58
[2017-11-15 20:00] VITALS: BP 111/80
[2017-11-16 04:00] VITALS: BP 127/88
[2017-11-16 06:25] LABS: BASOPHILS 0.3 % (0-2); HEMATOCRIT 41.1 % (42.0-54.0); HEMOGLOBIN 13.2 g/dL (13.5-17.5); INR 1.62 (0.85-1.17); LYMPHOCYTES 22.8 % (15-50); MCH 34.4 pg (26.0-34.0); MCHC 32.1 g/dL (31.0-37.0); MEAN PLATELET VOLUME 12.1 fL (7.4-10.4); MONOCYTES 8.3 % (2-11); NEUTROPHILS 65.6 % (40-80); PLATELET COUNT 89 10x3/uL (130-400); PROTIME 18.7 SECONDS (11.6-15.0); RBC 3.84 10x6/uL (4.20-6.10); RDW 18.1 % (11.5-14.5); WBC 3.7 10x3/uL (4.8-10.8)
[2017-11-16 06:53] LABS: ANION GAP 13.5 mmol/L (8-16); CALCIUM 8.7 mg/dL (8.5-10.1); CARBON DIOXIDE 27.8 mmol/L (21.0-32.0); CREATININE - SERUM 1.4 mg/dL (0.6-1.3); POTASSIUM - SERUM 4.3 mmol/L (3.5-5.1)
[2017-11-16 08:40] VITALS: BP 106/66
[2017-11-16 12:48] VITALS: BP 101/56
[2017-11-16 16:15] VITALS: BP 97/60
[2017-11-16 20:21] VITALS: BP 102/71
[2017-11-17 00:37] VITALS: BP 103/74
[2017-11-17 06:07] LABS: BASOPHILS 0.2 % (0-2); EOSINOPHILS 3.1 % (0-7); HEMATOCRIT 40.9 % (42.0-54.0); HEMOGLOBIN 13.5 g/dL (13.5-17.5); IMMATURE GRANULOCYTES 0.2 % (0-5); LYMPHOCYTES 18.2 % (15-50); MCH 34.9 pg (26.0-34.0); MCV 105.7 fL (80.0-100.0); MEAN PLATELET VOLUME 11.6 fL (7.4-10.4); MONOCYTES 18.2 % (2-11); NEUTROPHILS 60.1 % (40-80); PLATELET COUNT 86 10x3/uL (130-400); RBC 3.87 10x6/uL (4.20-6.10); RDW 17.7 % (11.5-14.5); WBC 4.5 10x3/uL (4.8-10.8)
[2017-11-17 06:16] LABS: INR 1.59 (0.85-1.17); PROTIME 18.4 SECONDS (11.6-15.0)
[2017-11-17 06:21] VITALS: BP 102/64
[2017-11-17 06:35] LABS: ANION GAP 12.8 mmol/L (8-16); CALCIUM 8.8 mg/dL (8.5-10.1); CARBON DIOXIDE 30.2 mmol/L (21.0-32.0); CREATININE - SERUM 1.3 mg/dL (0.6-1.3)
[2017-11-17 08:50] VITALS: BP 123/61
[2017-11-17 14:48] VITALS: BMI 24.3
[2017-11-17 15:28] VITALS: BP 111/69
[2017-11-17 20:38] VITALS: BP 113/46
[2017-11-18 00:05] VITALS: BP 113/63
[2017-11-18 04:39] VITALS: BP 124/69
[2017-11-18 05:54] LABS: BASOPHILS 0.3 % (0-2); EOSINOPHILS 2.8 % (0-7); HEMATOCRIT 40.7 % (42.0-54.0); HEMOGLOBIN 13.4 g/dL (13.5-17.5); LYMPHOCYTES 22.5 % (15-50); MCH 34.9 pg (26.0-34.0); MCHC 32.9 g/dL (31.0-37.0); MONOCYTES 14.7 % (2-11); NEUTROPHILS 59.7 % (40-80); PLATELET COUNT 96 10x3/uL (130-400); RBC 3.84 10x6/uL (4.20-6.10); RDW 17.8 % (11.5-14.5)
[2017-11-18 06:13] LABS: INR 1.5 (0.85-1.17); PROTIME 17.6 SECONDS (11.6-15.0)
[2017-11-18 06:27] LABS: ANION GAP 9.5 mmol/L (8-16); CALCIUM 8.5 mg/dL (8.5-10.1); CARBON DIOXIDE 31.4 mmol/L (21.0-32.0); CREATININE - SERUM 1.2 mg/dL (0.6-1.3); POTASSIUM - SERUM 3.9 mmol/L (3.5-5.1)
[2017-11-18 08:02] VITALS: BP 100/58
[2017-11-18 11:11] VITALS: BP 101/56
[2017-11-18 15:19] VITALS: BP 111/63
[2017-11-18 20:33] VITALS: BP 109/64
[2017-11-19 01:35] VITALS: BP 90/49
[2017-11-19 05:26] LABS: BASOPHILS 0.3 % (0-2); EOSINOPHILS 2.6 % (0-7); HEMOGLOBIN 13.3 g/dL (13.5-17.5); IMMATURE GRANULOCYTES 0.3 % (0-5); LYMPHOCYTES 19.7 % (15-50); MCH 34.3 pg (26.0-34.0); MCHC 32.4 g/dL (31.0-37.0); MCV 105.7 fL (80.0-100.0); MONOCYTES 19.5 % (2-11); NEUTROPHILS 57.6 % (40-80); PLATELET COUNT 97 10x3/uL (130-400); RBC 3.88 10x6/uL (4.20-6.10); RDW 17.6 % (11.5-14.5); WBC 3.8 10x3/uL (4.8-10.8)
[2017-11-19 05:47] LABS: ANION GAP 7.7 mmol/L (8-16); CALCIUM 8.7 mg/dL (8.5-10.1); CARBON DIOXIDE 31.2 mmol/L (21.0-32.0); CREATININE - SERUM 1.2 mg/dL (0.6-1.3); POTASSIUM - SERUM 3.9 mmol/L (3.5-5.1)
[2017-11-19 05:50] VITALS: BP 98/61
[2017-11-19 08:25] VITALS: BP 111/82
[2017-11-19 09:14] LABS: HEPATITIS C ANTIBODY 0.1 (0.0-0.9)
[2017-11-19 11:52] VITALS: BP 104/73
[2017-11-19 15:33] VITALS: Ht 177.8 cm; Wt 77.0 kg
[2017-11-19 15:53] VITALS: BP 97/67
[2017-11-19 20:34] VITALS: BP 106/67
[2017-11-20 01:31] VITALS: BP 91/46
[2017-11-20 04:59] LABS: BASOPHILS 0.3 % (0-2); EOSINOPHILS 2.5 % (0-7); HEMATOCRIT 40.6 % (42.0-54.0); HEMOGLOBIN 13.2 g/dL (13.5-17.5); IMMATURE GRANULOCYTES 0.3 % (0-5); LYMPHOCYTES 20.6 % (15-50); MCH 34.4 pg (26.0-34.0); MCHC 32.5 g/dL (31.0-37.0); MCV 105.7 fL (80.0-100.0); MEAN PLATELET VOLUME 10.9 fL (7.4-10.4); MONOCYTES 19.9 % (2-11); NEUTROPHILS 56.4 % (40-80); PLATELET COUNT 85 10x3/uL (130-400); RBC 3.84 10x6/uL (4.20-6.10); RDW 17.7 % (11.5-14.5); WBC 3.3 10x3/uL (4.8-10.8)
[2017-11-20 05:29] LABS: ALBUMIN 2.8 g/dL (3.4-5.0); ANION GAP 13.6 mmol/L (8-16); BILIRUBIN - DIRECT 1.28 mg/dL (0.00-0.30); BILIRUBIN - INDIRECT 1.37 mg/dL (0.00-1.00); BILIRUBIN - TOTAL 2.65 mg/dL (0.2-1.3); CALCIUM 8.7 mg/dL (8.5-10.1); CARBON DIOXIDE 28.3 mmol/L (21.0-32.0); CREATININE - SERUM 1.3 mg/dL (0.6-1.3); POTASSIUM - SERUM 3.9 mmol/L (3.5-5.1); PROTEIN - SERUM 5.5 g/dL (6.4-8.2)
[2017-11-20 05:43] VITALS: BP 101/60
[2017-11-20 10:02] VITALS: BP 99/45
[2017-11-20 13:18] VITALS: BP 110/65
[2017-11-20 16:17] VITALS: BP 114/75
[2017-11-20 17:07] LABS: HEPARIN INDUCED PLATELET AB 0.298 OD (0.000-0.400)
[2017-11-20 20:00] VITALS: BP 111/68
[2017-11-21 04:00] VITALS: BP 115/71
[2017-11-21 07:04] LABS: BASOPHILS 0.6 % (0-2); HEMATOCRIT 40.6 % (42.0-54.0); HEMOGLOBIN 13.3 g/dL (13.5-17.5); IMMATURE GRANULOCYTES 0.3 % (0-5); LYMPHOCYTES 22.7 % (15-50); MCH 34.9 pg (26.0-34.0); MCHC 32.8 g/dL (31.0-37.0); MCV 106.6 fL (80.0-100.0); MEAN PLATELET VOLUME 11.5 fL (7.4-10.4); MONOCYTES 17.6 % (2-11); NEUTROPHILS 55.8 % (40-80); PLATELET COUNT 93 10x3/uL (130-400); RBC 3.81 10x6/uL (4.20-6.10); RDW 17.9 % (11.5-14.5); WBC 3.3 10x3/uL (4.8-10.8)
[2017-11-21 07:18] LABS: ANION GAP 9.3 mmol/L (8-16); CALCIUM 8.5 mg/dL (8.5-10.1); CARBON DIOXIDE 30.4 mmol/L (21.0-32.0); CREATININE - SERUM 1.1 mg/dL (0.6-1.3)
[2017-11-21 07:19] LABS: POTASSIUM - SERUM 4.7 mmol/L (3.5-5.1)
[2017-11-21 07:35] LABS: PLATELET ESTIMATE DECREASED
[2017-11-21 08:53] VITALS: BP 113/61
[2017-11-21 20:00] VITALS: BP 91/55
[2017-11-22] VITALS: BP 90/56
[2017-11-22 04:00] VITALS: BP 90/58
[2017-11-22 05:25] LABS: BASOPHILS 0.8 % (0-2); EOSINOPHILS 2.5 % (0-7); HEMATOCRIT 39.4 % (42.0-54.0); HEMOGLOBIN 12.8 g/dL (13.5-17.5); IMMATURE GRANULOCYTES 0.3 % (0-5); LYMPHOCYTES 24.4 % (15-50); MCH 34.5 pg (26.0-34.0); MCHC 32.5 g/dL (31.0-37.0); MCV 106.2 fL (80.0-100.0); MEAN PLATELET VOLUME 10.9 fL (7.4-10.4); MONOCYTES 13.9 % (2-11); NEUTROPHILS 58.1 % (40-80); PLATELET COUNT 90 10x3/uL (130-400); RBC 3.71 10x6/uL (4.20-6.10); RDW 17.5 % (11.5-14.5); WBC 3.5 10x3/uL (4.8-10.8)
[2017-11-22 05:43] LABS: ANION GAP 9.6 mmol/L (8-16); CALCIUM 8.4 mg/dL (8.5-10.1); CARBON DIOXIDE 31.5 mmol/L (21.0-32.0); CREATININE - SERUM 1.3 mg/dL (0.6-1.3); POTASSIUM - SERUM 4.1 mmol/L (3.5-5.1)
[2017-11-22 07:59] VITALS: BP 114/66
[2017-11-22 11:48] VITALS: BP 103/57
[2017-11-22 12:51] LABS: INR 1.32 (0.85-1.17)
[2017-11-22 15:46] VITALS: BP 110/65
[2017-11-22 20:28] VITALS: BP 97/65
[2017-11-23 01:30] VITALS: BP 101/60
[2017-11-23 04:00] VITALS: BP 110/77
[2017-11-23 05:54] LABS: BASOPHILS 0.6 % (0-2); EOSINOPHILS 2.3 % (0-7); HEMATOCRIT 40.7 % (42.0-54.0); HEMOGLOBIN 13.2 g/dL (13.5-17.5); IMMATURE GRANULOCYTES 0.3 % (0-5); LYMPHOCYTES 22.2 % (15-50); MCH 34.6 pg (26.0-34.0); MCHC 32.4 g/dL (31.0-37.0); MCV 106.8 fL (80.0-100.0); MEAN PLATELET VOLUME 11.8 fL (7.4-10.4); MONOCYTES 18.2 % (2-11); NEUTROPHILS 56.4 % (40-80); PLATELET COUNT 90 10x3/uL (130-400); RBC 3.81 10x6/uL (4.20-6.10); RDW 17.5 % (11.5-14.5); WBC 3.5 10x3/uL (4.8-10.8)
[2017-11-23 06:15] LABS: ANION GAP 8.5 mmol/L (8-16); CALCIUM 8.5 mg/dL (8.5-10.1); CARBON DIOXIDE 33.9 mmol/L (21.0-32.0); CREATININE - SERUM 1.3 mg/dL (0.6-1.3); POTASSIUM - SERUM 4.4 mmol/L (3.5-5.1)
[2017-11-23 06:24] LABS: PLT FUNCT.(P2Y12) PLAVIX 265 PRU (194-418)
[2017-11-23 07:44] VITALS: BP 119/67
[2017-11-23 11:25] VITALS: BP 113/71
[2017-11-23] MEDS ORDERED: MORPHINE IMMEDI15 MG PO (11:39)
[2017-11-23] MEDS ORDERED: BUMEX2 MG PO (11:39)
[2017-11-23 22:06] LABS: PLT ASSOCIATED ANTI-IA/IIA Negative (Negative); PLT ASSOCIATED ANTI-IB/IX Negative (Negative)
== END 2017-11-23 15:59 | disposition home or self-care (01) | DRG 286 ==
LOC: D.ER 20:11 → D.EDHOLD 21:55 → OBSVTIME 21:55 → D.M2 22:46
PROVIDERS: Emergency Medicine; Family Medicine; Internal Medicine Cardiovascular Disease; Internal Medicine Hematology & Oncology; Internal Medicine Medical Oncology; Internal Medicine Nephrology
PROC: B2111ZZ Fluoroscopy of Multiple Coronary Arteries using Low Osmolar Contrast (ICD-10-PCS; 2017-11-15)
PROC: 4A023N8 Measurement of Cardiac Sampling and Pressure, Bilateral, Percutaneous Approach (ICD-10-PCS; 2017-11-15)
PROC: B2161ZZ Fluoroscopy of Right and Left Heart using Low Osmolar Contrast (ICD-10-PCS; principal; 2017-11-15 09:30)
DX: I08.1 Rheumatic disorders of both mitral and tricuspid valves (principal); I50.33 Acute on chronic diastolic (congestive) heart failure; D68.9 Coagulation defect, unspecified; I31.1 Chronic constrictive pericarditis; I42.0 Dilated cardiomyopathy; D69.3 Immune thrombocytopenic purpura; I11.0 Hypertensive heart disease with heart failure; I48.2 Chronic atrial fibrillation; Z79.01 Long term (current) use of anticoagulants; D75.89 Other specified diseases of blood and blood-forming organs; I50.810 Right heart failure, unspecified; I27.20 Pulmonary hypertension, unspecified; D69.6 Thrombocytopenia, unspecified; E80.6 Other disorders of bilirubin metabolism

== ENCOUNTER 2017-11-30 11:34 | Inpatient (IN) | payer MEDICARE, BC ==
[~2017-11-30] VITALS: Ht 177.8 cm; Wt 92.7 kg
[2017-11-30] VITALS (38 sets, daily range): BP systolic 88–144; BP diastolic 6–70; BMI 22.1
--- NOTE | ~2017-11-30 | OP ---
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 PROCEDURE: Excisional debridement of infected necrosis of the left medial arm. I debrided sharply back to viable bleeding tissue. The dimensions of the debridement, including margins, measured 9.2 cm in the proximal-distal measurement and 8.2 cm in the anterior-posterior dimension. The tissues debrided including thick eschar, subcutaneous tissue, exudative material, necrotic skin, necrotic adipose tissue. Placement of wound VAC. SURGEON: Lorraine Kelley MD CENTER MGR: Martin Mason scope technologist BLOOD LOSS: Less than 25 cc. ANESTHESIA: General. COMPLICATIONS: None. The risks, possible complications and alternatives to procedure were explained to the patient's family. They elected to proceed. OPERATIVE COURSE: The patient was conveyed to the operating room electively on 01/10/2018. General anesthesia was induced by the anesthesia staff. The left arm was sterilely prepped and draped. Utilizing a scalpel, I excised the necrotic eschar. Utilizing a rongeur, further debridement was carried out. At no time was there any apparent vascular or nervous injury. Some debridement was also carried out utilizing a curette. I obtained some cultures. I then irrigated with hydrogen peroxide. Meticulous hemostasis was achieved with electrocautery. Dimensions were measured. We then cut a black wound VAC sponge. It was applied to the wound bed. The cellophane-type dressings were applied over the black wound VAC sponge which was then scored and a disc applied. Suction was applied and this held a good "raisin" indicating an adequate seal without leakage. The patient was then conveyed back to the CVICU in critical, but stable condition. TRANSINT:[id number] Voice Confirmation ID: [id number] DOCUMENT ID: [id number] OPERATIVE REPORT [id number] DINA HENRY LORRAINE KELLEY MD at 3256 CC: CLEO IGNACIO [id number] DICTATION DATE: 01/11/18 1804 [employer] CONSULTANT: 01/11/18 1835 ADM IN [facility] [address] [id number]
--- NOTE | ~2017-11-30 | OP ---
PATIENT NAME: DINA HENRY MEDICAL RECORD: [id number] :37 LOCATION:[facility] D.CV04 ADMISSION DATE:11/30/17 SURGEON: LORRAINE KELLEY MD DATE OF OPERATION: 01/05/2018 PREOPERATIVE DIAGNOSES: 1. End-stage renal disease without chronic access for hemodialysis. 2. Ventilatory failure. 3. Hepatic failure. POSTOPERATIVE DIAGNOSES: 1. End-stage renal disease without chronic access for hemodialysis. 2. Ventilatory failure. 3. Hepatic failure. PROCEDURES: 1. Placement of right internal jugular HemoSplit catheter (tunneled, cuffed dual-lumen hemodialysis catheter) under fluoroscopic guidance. 2. Immediate surgeon interpretation of the fluoroscopic images. 3. Insertion of right internal jugular triple-lumen central venous catheter placement, 16 cm. SURGEON: Lorraine Kelley MD SUPERINTENDENT RADIO COMMUNICATIONS: None. BLOOD LOSS: Minimal. ANESTHESIA: General. COMPLICATIONS: None. The risks, possible complications, and alternatives to the procedure were explained to the patient's family. They elected to proceed. A consent form was signed. No radiologist was present for this procedure. Static fluoroscopic images were obtained and are kept in the patient's chart. The surgeon interpretation of the radiographic images is dictated within the body of this operative note. OPERATIVE COURSE: The patient was conveyed to the operating room electively on 01/05/2018. General anesthesia was induced by the anesthesia staff. Sutures to the patient's indwelling right neck Trialysis catheter were cut and the Trialysis catheter was removed. The site was sterilely prepped. I then closed the exit site for the Trialysis catheter with a horizontal mattress 3-0 Vicryl suture. The right neck and right chest were sterilely prepped and draped. Utilizing the sterile ultrasound, I interrogated the right neck. I performed a high right internal jugular stick. An Angiocath was placed. Over the Angiocath, a guidewire was advanced. The Angiocath was removed. Over the guidewire, I dilated to a larger size. A 16-cm triple lumen central venous catheter was inserted to the hub. It was sutured in place times 3. All lumens flushed easily and aspirated dark, nonpulsatile blood. OPERATIVE REPORT [id number] DINA HENRY Attention was then turned to placement of the HemoSplit catheter. At the base of the right neck, I identified a large compressible right internal jugular vein. I percutaneously accessed the right internal jugular vein in an antegrade fashion easily. A guidewire passed easily. This was witnessed under fluoroscopy. A small skin marina was accomplished around the wire. A counterincision was accomplished in the right anterior-superior chest. I then tunneled a HemoSplit catheter from the chest incision to the neck incision. Over the guidewire, I dilated to a larger size. This was witnessed under fluoroscopy. A dilator sheath was then advanced. The dilator and wire were removed. Through the sheath, I advanced the tips of the HemoSplit catheter. The Peel-Away sheath was then removed. I then pulled back on the HemoSplit catheter in order to seat the cuff of the HemoSplit catheter into the subcutaneous tissues. Under real time fluoroscopy, there was no apparent kinking or twisting of the HemoSplit catheter. There was no radiographic evidence of complication. The longest tip of the HemoSplit catheter appeared to be within the right innominate vein or perhaps in the superior vena cava. The neck incision was closed with a horizontal mattress 3-0 Vicryl. The flange of the HemoSplit catheter was sutured to the underlying skin with 2-0 nylons. I then flushed the HemoSplit catheter with the appropriate amount of concentrated heparin. Sterile dressings were applied including a hemostatic agent, Fibrillar. The patient was then conveyed back to the intensive care unit in critical but stable condition. TRANSINT:[id number] Voice Confirmation ID: [id number] DOCUMENT ID: [id number] LORRAINE KELLEY MD at 1717 CC: CLEO IGNACIO [id number] DICTATION DATE: 01/05/18 1740 EDITORIAL ASSISTANT: 01/05/18 [address] [facility] [address] [place] [address]
--- NOTE | ~2017-11-30 | TEE ---
PATIENT:DINA HENRY MEDICAL RECORD: [id number] LOCATION:[place] [address] AGE OF PATIENT: 81 ADMISSION DATE: 11/30/17 SEX: M REFERRING PHYSICIAN: INTERPRETING PHYSICIAN: DEEPAK VELA MD TRANSESOPHAGEAL ECHOCARDIOGRAM Date: 12/02/17 CHUCKY CHARGE Y INDICATIONS: MVR/TVR PREMEDICATIONS: PATIENT'S RESPONSE PROCEDURE DOPPLER MEASUREMENTS: LVIT LA PA 73.0 RA LVOT 76.0 RVOT 55.0 Asc. Ao 267 AV Gradient Peak 29.0 AV Mean 16.0 AV Area 0.6 MV Gradient Peak 16.0 MV Mean 5.0 MV Area INTERPRETATION: LVd: 4.8 cm LVs: 2.9 cm Doppler: 2-D: COLOR FLOW DOPPLER NORMAL SALINE STUDY: MISCELLANOUS: DIAGNOSIS: PLAN: Apartment Maintenance Worker:Holli Vela Therapeutic Sales Specialist: Holli ROBERTSON COMMENTS: DATE OF SERVICE: 12/06/2017 PROCEDURE: Transesophageal echo evaluation of valvular structures during valve replacement surgery. FINDINGS: 1. Left ventricular chamber size is within normal limits. Left ventricular systolic function is normal. Overall ejection fraction estimated 60%. 2. Left atrium, right atrium, and right ventricular chamber sizes are all mild TRANSESOPHAGEAL ECHOCARDIOGRAM REPORT [id number] DINA HENRY to moderately dilated. 3. Valvular structures have normal structure and motion. 4. Doppler interrogation reveals severe mitral regurgitation, severe tricuspid regurgitation. No other valvular insufficiency or stenosis. 5. No evidence of pericardial effusion or left ventricular thrombus. TRANSINT:[id number] Voice Confirmation ID: [id number] DOCUMENT ID: [id number] at 1710 CC: [id number] DICTATION DATE: 12/06/17 0957 EDGE STAINER: 12/06/17 1219 ADM IN [place] [id number] [place] [address]
--- NOTE | ~2017-11-30 | OP ---
PATIENT NAME: DINA HENRY MEDICAL RECORD: [id number] :37 LOCATION:D.CVI D.CV04 ADMISSION DATE:11/30/17 SURGEON: LORRAINE KELLEY MD DATE OF OPERATION: 12/11/2017 PREOPERATIVE DIAGNOSES: 1. Hepatorenal failure. 2. Acute renal failure, requiring access for hemodialysis. POSTOPERATIVE DIAGNOSES: 1. Hepatorenal failure. 2. Acute renal failure, requiring access for hemodialysis. PROCEDURES: Insertion of right neck Trialysis catheter, which is a triple lumen, noncuffed, nontunneled hemodialysis catheter. The risks, possible complications, and alternatives to the procedure were explained to the patient's family. They elected to proceed. The entire procedure was performed in the presence of a nurse. It was performed in the CV ICU. The patient was positioned in the Trendelenburg position. The right neck was sterilely prepped and draped. A local anesthetic was used to infiltrate skin and subcutaneous tissues at the base of the right neck. The right subclavian vein was accessed percutaneously in an antegrade fashion utilizing a supraclavicular technique. A guidewire passed easily. A small skin marina was accomplished. A vessel dilator was used to dilate a subcutaneous tract. A short Trialysis catheter was inserted to the hub. It was sutured in place times 3. All lumens flushed easily and aspirated dark, nonpulsatile blood. A stat portable chest x-ray revealed no pneumothorax. It is okay to begin utilizing the Trialysis catheter. TRANSINT:[id number] Voice Confirmation ID: [id number] DOCUMENT ID: [id number] LORRAINE KELLEY MD at 1612 CC: CLEO IGNACIO [id number] DICTATION DATE: 12/11/17 1808 FRONT OFFICE ASSISTANT: 12/11/17 1845 ADM IN [place] [address] [place] [address]
--- NOTE | ~2017-11-30 | OP ---
PATIENT NAME: DINA HENRY MEDICAL RECORD: [id number] :37 LOCATION:[facility] D.CV04 ADMISSION DATE:11/30/17 SURGEON: LORRAINE KELLEY MD DATE OF OPERATION: 12/20/2017 PREOPERATIVE DIAGNOSES: 1. Need of prolonged mechanical ventilation. 2. Acute malnutrition. 3. Inability to feed orally due to his ventilated state. POSTOPERATIVE DIAGNOSES: 1. Need of prolonged mechanical ventilation. 2. Acute malnutrition. 3. Inability to feed orally due to his ventilated state. 4. Mild pangastritis. 5. Diffuse moderate bronchitis with mucopurulent debris, particularly in the lower lobes. PROCEDURES: 1. Esophagogastroduodenoscopy with antral biopsies. 2. Percutaneous endoscopic gastrostomy tube, 20 [place]i. 3. Diagnostic and therapeutic bronchoscopy with bronchoalveolar lavage. 4. Percutaneous tracheostomy placement, 8 mm. SURGEON: Lorraine Kelley MD TIMBER CRUISER: None. BLOOD LOSS: Minimal. ANESTHESIA: General. COMPLICATIONS: None. The risks, possible complications and alternatives to procedure were explained to the patient. He elects to proceed. OPERATIVE COURSE: The patient was conveyed to the operating room electively on 12/20/2017. General anesthesia was induced by the anesthesia staff. A bite block was inserted. A gastroscope was inserted into the mouth. It was advanced easily into the hypopharynx. The esophagus was easily intubated as were the stomach and duodenum. Upon withdrawal, retroflexed and angulus views were obtained. Antral biopsies were obtained. We then turned down the lines. I was able to transilluminate the stomach. I chose an area for placement of the gastrostomy tube in the right upper quadrant. This was out of the way of the median sternotomy incision as well as where the mediastinal tubes had come out. This area was infiltrated with a local anesthetic. A small skin incision was accomplished. Through the skin incision, I advanced an Angiocath. Through the Angiocath, I advanced a wire. This was grasped with an endoscopic snare and was withdrawn out through the mouth. The wire was attached to a pull type gastrostomy tube and then pulled into place. Hub and flange devices were attached. I then re-endoscoped the patient's esophagus and stomach. There had been no evidence of false passage or perforation. The gastroscope was then withdrawn under direct vision. OPERATIVE REPORT [id number] HEAD,DINA S The patient's neck was extended. The neck and upper chest were sterilely prepped and draped. A small midline incision was accomplished just inferior to the larynx. I made this incision as small as possible and as high as possible in order to avoid the mediastinum and in order to avoid the possibility of mediastinitis. I dissected down to the tracheal cartilage. A tracheal hook was placed within the cricoid cartilage and elevated the larynx. A bronchoscopic adapter was applied to the bronchoscope. I advanced the bronchoscope. Bronchoalveolar lavage was performed bilaterally. There was a moderate amount of mucopurulent debris. This was irrigated with normal saline and aspirated until all the segmental bronchi were open. I then withdrew the bronchoscope and the endotracheal tube as a unit while indenting the trachea at the second tracheal cartilage. I was able to visualize this bronchoscopically. I then punctured this area with an Angiocath. There was no entry and no damage to the posterior wall of the trachea or the esophagus. The inner cannula of the Angiocath was removed. I advanced a wire. This was advanced caudad. Over the wire, I dilated to a larger size. I then advanced the 8 mm percutaneous tracheostomy, which had been loaded on a well-lubricated introducer. This was advanced into the trachea and the balloon inflated. The introducer was removed. The inner cannula was placed within the trachea. I then performed a bronchoscopy through the tracheostomy and this revealed intratracheal placement. Corrugated tubing was applied and the anesthesiologist began to ventilate through the corrugated tubing. Fibrin glue was then applied around the entry site of the tracheostomy and below the skin. The skin around the tracheostomy site was closed with interrupted 3-0 Vicryl sutures. A sterile dressing was applied. The patient was then conveyed to the CVICU in critical, but stable condition. TRANSINT:[id number] Voice Confirmation ID: [id number] DOCUMENT ID: [id number] LORRAINE KELLEY MD at 1816 CC: CLEO IGNACIO [id number] DICTATION DATE: 12/20/17 1401 CAR REPAIR SUPERVISOR: 12/20/17 1453 [facility] [id number] [place] [address]
--- NOTE | ~2017-11-30 | MORECARE ---
CASE MANAGEMENT DISCHARGE SUMMARY PATIENT: DINA BALTAZAR UNIT: [id number] ADM DATE: 11/30/17 AGE: 82 : 37 SEX: M ROOM/BED: D[facility] AUTHOR: CASE, WATERPROOFER PHYSICIAN: REFERRING PHYSICIAN: CLEO IGNACIO MD DATE OF SERVICE: 11/30/17 Discharge Plan Patient Name: DINA BALTAZAR Facility: [facility]:[place] : 1935 Planned Disposition: Home Anticipated Discharge Date: 12/06/17 Discharge Date: 01/17/2018 Expected LOS: 6 Initial Reviewer: [email or web address] Initial Review Date: 12/01/2017 Generated: 01/18/18 10:10 am Comments DCP- Discharge Planning Updated by [id number]: Radha Rojas on 01/16/18 4:[address] Late Entry CM served and explained IMM to patients . No questions or concerns voiced at this time DCP- Discharge Planning Updated by [email or web address]: Radha Rojas on 01/16/18 4:[address] Patient Name: DINA BALTAZAR Encounter No: [id number] : 1935 Primary Insurance: MEDICARE A & B Anticipated DC Date: 12-06-2017 Planned Disposition: Home External Planned Provider: : DCP follow-up note: Patient and family in agreement with discharge plan. CAITLIN has spoke with Selwyn at [facility] in [place] regarding discharge today. Dr. Ignacio called and spoke with Dr. Halina Koenig. Patient to go to room 2612 at [facility]. Report to be called to Lalitha. Clinicals faxed as requested. [facility] notified of transfer. Transfer delayed at this time due to weather in [place] area. Case management will follow and assist as needed. Radha Rojas DCP- Discharge Planning Updated by [email or web address]: Radha Rojas on 01/12/18 12:[address] CAITLIN spoke with Selwyn from [facility]. She was requesting expected discharge date informed her that the proposed date is Tuesday01/17/18. She also stated that she had tried to get in touch with Mrs. Baltazar and hasn't been able to get verbal consent for admit. She also requested updated clinicals. CM spoke with and gave her Selwyn contact information and asked that she please call her. CM will fax updated clinicals. CM will continue to follow and assist with patients discharge planning as needed. DCP- Discharge Planning Updated by [email or web address]: Radha Rojas on 01/11/18 1:[address] CM spoke with and explained that [facility] had accepted patient and that at this time possibly transfer on Tuesday. Patient informed CM that they are a member of [employer] in [place]. CM copied membership card and placed in chart. Patient denies any discharge needs at this time. CM will continue to follow and assist as needed for discharge planning. DCP- Discharge Planning Updated by [id number]: Radha Rojas on 01/10/18 1:[address] Patient Name: DINA BALTAZAR Admission Status: Elective Accout number: [id number] Admission Date: 11-30-2017 : 1935 Admission Diagnosis:ACUTE ON CHRONIC SYSTOLIC (CONGESTIVE) HEART FAILURE Attending: CLEO IGNACIO Current LOS: 41 Anticipated DC Date: 12-06-2017 Planned Disposition: Home Primary Insurance: MEDICARE A & B Discharge Planning Comments: CM spoke with Heleen ([facility]) in regards to patient status, and information that they had requested. CM notified her that the current plan is for patient to be transferred on Tuesday per Dr. Ignacio. CM will continue to follow and assess patient needs. DCP- Discharge Planning Updated by [id number]: Radha Rojas on 01/09/18 2:[address] Patient Name: DINA BALTAZAR Admission Status: Elective Accout number: [id number] Admission Date: 11-30-2017 : 1935 Admission Diagnosis:ACUTE ON CHRONIC SYSTOLIC (CONGESTIVE) HEART FAILURE Attending: CLEO IGNACIO Current LOS: 40 Anticipated DC Date: 12-06-2017 Planned Disposition: Home Primary Insurance: MEDICARE A & B Discharge Planning Comments: CM received a message to call Gopi Cynthia MACHINE [employer]ERAM[employer]ATER of [facility] in [facility] regarding transfer to LTAC facility. CM returned call to Mr. Marie he stated that he had spoken to patients daughter (Taina Bowman) and that the family of the patient had decided to choose his LTAC facility ([facility]). He requested for referral order and clinicals to be faxed to Juanita [phone]. CM met with patients to clarify that [facility] is the LTAC facility that was chosen and she agreed. CM received verbal consent from to send information to [facility]. Packet was assembled and sent to Juanita. CM will continue to follow and assist with patients needs. Med Spec: Radha Rojas DCP- Discharge Planning Updated by [email or web address]: Jaycee Weathers on 01/06/18 12:[address] CM approached patient's and daughter about their decision on LTAC facility. Patient states the patient's mother is about to and wants to wait until after the arrangements and before decides on a LTAC facility. CM informed spouse that once family lets CM know which facility they choose CM will initiate referral for LTAC and then LTAC will take couple days to review record and let CM know determination of acceptance. Spouse states to check back with her on Tuesday and she will make a decision on a facility so CM can start LTAC referral. CM informed Dr. White and Atif on progress of LTAC referral. CM will continue to follow and assist as needed with any discharge planning/needs. DCP- Discharge Planning Updated by [email or web address]: Flores Griffin on 01/04/18 12:[address] CM met with patient's daughter regarding decision related to LTAC. Daughter informed CM that the family had "8 calls out" to LTAC facilities and she expected the family to make a decision today. CM will continue to follow and assist as needed with discharge planning / needs. DCP- Discharge Planning Updated by [email or web address]: Flores Griffin on 01/03/18 10:[address] CM notified by Dr Ignacio's nurse Marielena to start LTAC DC planning. CM met with patient's and daughter regarding LTAC. CM gave family list of LTAC facilities in [place]. Family is considering LTAC in . Family will visit facility and let CM know their decision. CM notified Marielena of status of referral. CM will continue to follow and assist as needed with discharge planning / needs. DCP- Discharge Planning Updated by [email or web address]: Misty Honeycutt on 12/01/17 6:[address] Patient Name: DINA BALTAZAR Admission Status: Elective Accout number: [id number] Admission Date: 11-30-2017 : 1935 Admission Diagnosis: Attending: CLEO IGNACIO Current LOS: 1 Anticipated DC Date: 12-06-2017 Planned Disposition: Home Primary Insurance: MEDICARE A & B Discharge Planning Comments: CM MET WITH PATIENT AND (COLEMAN PALACIO) REGARDING D/C NEEDS AND PLANS. STATED THEY HAVE MOVED IN THEIR GUEST HOUSE WHICH HAS NO STEPS OR STAIRS. WILL DRIVE THE PATIENT HOME AT DISCHARGE. PATIENT IS INDEPENDENT WITH HIS CARE AND HAS A WALKER, WHEELCHAIR, BUILT IN SHOWER CHAIR, CANE, AND BS COMMODE AT HOME IF NEEDED. PATIENTS PCP IS DR. MEDRANO AND USES [facility] IN [place]. PATIENT REFUSED HOME HEALTH AT THIS TIME. CM QIANL CONTINUE TO FOLLOW PATIENT WITH D/C NEEDS AND PLANS. PCP DR[facility]ANO [facility] [place] COLEMAN PALACIO C [phone] Med Spec: Misty Honeycutt [facility] - Discharge Planning Initial Assessment Updated by [email or web address]: Misty Honeycutt on 12/01/17 7:33 am * Is the patient Alert and Oriented? Yes * How many steps to enterexit or inside your home? * PCP DR. MEDRANO IN [place] * Pharmacy [facility] IN [place] * Preadmission Environment Home with Family * ADLs Independent * Equipment Bedside Commode Cane Shower Chair Walker Wheelchair * List name and contact numbers for known caregivers / representatives who currently or will assist patient after discharge: COLEMAN () C- [phone] * Verbal permission to speak to the caregivers and representatives has been obtained from the patient. Yes * Community resources currently utilized None * Additional services required to return to the preadmission environment? Yes * Can the patient safely return to the preadmission environment? Yes * Has this patient been hospitalized within the prior 30 days at any hospital? Yes External Providers External Provider: [facility] Next Contact Date: 01/09/2018 Service Request Date: Service Type: Resolution: Reviewer: Comments: Patient Name: DINA BALTAZAR Page [phone] All edits/amendments must be made on the electronic document DICTATION DATE: 08/01/18 0909 INFORMATICS NURSE: 01/18/18908 RPT#: [id number] DC DATE:01/17/18 STATUS: DIS IN [facility] [address] [place] [address] END OF REPORT
--- NOTE | ~2017-11-30 | CN ---
PATIENT NAME:DINA BALTAZAR MEDICAL RECORD: [id number] : [birth year] LOCATION:[facility] ADMIT DATE: 11/30/17 ACCOUNT: [id number] CONSULTING PHYSICIAN: FILIBERTO GAGNON MD REFERRING PHYSICIAN: RICKY IGNACIO MD DATE OF CONSULTATION: 12/03/2017 CONSULT REQUESTING PHYSICIAN: Ricky Ignacio MD REASON FOR CONSULTATION: Vent management. HISTORY OF PRESENT ILLNESS: Mr. Baltazar is a 81-year-old gentleman who has a severe mitral and tricuspid regurgitation as well as pulmonary hypertension and CHF. The patient underwent a mitral valve replacement, tricuspid valve repair yesterday. The patient was difficult to take him off of the ventilator because of the hypotension and hypoxia. Now, the patient is orally intubated and sedated. The history was taken mainly by reviewing the patient's chart and talking to the nursing staff. REVIEW OF SYSTEMS: The detail is not obtainable. PAST MEDICAL HISTORY: 1. Hypertension. 2. Thrombocytopenia. 3. Atrial fibrillation. 4. Congestive heart failure. PERSONAL AND SOCIAL HISTORY: The patient is a nonsmoker, nondrinker. PAST SURGICAL HISTORY: Now, the patient is status post mitral valve replacement and tricuspid valve repair. ALLERGIES: HE IS ALLERGIC TO PENICILLIN AND STATINS. OTHER MEDICATIONS: [email or web address] is reviewed. PHYSICAL EXAMINATION: GENERAL: Now, the patient is orally intubated and sedated. VITAL SIGNS: The blood pressure is 87-102/50, pulse is 99, respirations 19, temperature 97.2, SpO2 is 98% on mechanical ventilation assist control, PEEP of 12, FiO2 of 40%. HEENT: Conjunctiva is pale. Sclerae are not icteric. NECK: Supple, no JVD. CHEST: There is a left basal crackle. No wheezing. HEART: Rate and rhythm regular, normal sound. There is grade II/ systolic murmur. ABDOMEN: Soft. Bowel sounds are present. RECTAL: Deferred. EXTREMITIES: No cyanosis, no clubbing. There is 1+ pedal edema. SKIN: Warm, normal turgor. There is incision. CENTRAL NERVOUS SYSTEM: The patient is orally intubated and sedated. LABORATORY DATA: CBC: The WBC is 4.9, hemoglobin 9.2, hematocrit 26.5, the platelet count is 84. Chemistry: Sodium 148, potassium is 3.8, chloride 111, BUN is 24, creatinine 1.8. ABG: The pH is 7.43, pCO2 is 37.2, the pO2 is 79, CONSULT REPORT [id number] DINA BALTAZAR bicarbonate is 24.7. CHEST RADIOGRAPH: The ET tube is in good position. There is a possible retrocardiac infiltrate and atelectasis. There is minimal scoliosis. IMPRESSION: 1. Acute respiratory failure post-procedure. 2. Status post mitral valve replacement with tricuspid valve repair. 3. Thrombocytopenia. 4. Leukopenia. 5. Severe pulmonary hypertension secondary to mitral regurgitation. 6. Acute kidney injury secondary to acute tubular necrosis. 7. Anemia. 8. Chronic atrial fibrillation. 9. Hypertension. 10. Hypernatremia. 11. Anemia, most likely secondary to blood loss. RECOMMENDATION: 1. Continue mechanical ventilation, adjust the setting. 2. Deep venous thrombosis and gastrointestinal blood prophylaxis. 3. The patient got prophylactic vancomycin. 4. Follow up labs and chest radiograph. 5. Thrombocytopenia. Dr. Ramos is consulted. Dr. Ignacio, thank you for involving me in the care of Mr. Baltazar. The critical care time is 50 minutes. TRANSINT:[id number] Voice Confirmation ID: [id number] DOCUMENT ID: [id number] FILIBERTO GAGNON MD at 1348 CC: [id number] DICTATION DATE: 12/03/171419 MISSILE MECHANIC: 12/03/17 1442 ADM IN [facility] [address] [id number]
--- NOTE | ~2017-11-30 | HP ---
PATIENT: DINA HENRY MEDICAL RECORD: [id number] ACCOUNT: [id number] [facility] AD[facility]ION DATE: 11/30/17 HISTORY AND PHYSICAL EXAMINATION DINA New (81yo, M) ID# [id number]. Date/Time11/30/2017 10:63OKUNZ36/25/1936[facility] Dept.[facility] ClinicProviderEDRUBI IGNACIO MDInsuranceMed Primary: [place] (MED[place]ARE) Insurance # : [id number] Referring Provider Name : JUAN DIEGO MORALES Employer Name : UNKNOWN Med Secondary: [employer] (MEDICARE SUPPLEMENT) Insurance # : [id number] Employer Name : UNKNOWN Prescription: CMX - Member is eligible. Chief Complaint Followup: Tricuspid valve regurgitation Followup: Mitral valve regurgitation Followup: Congestive heart failure one week hospital f/u Patient's Care Team Referring Provider (): JUAN DIEGO MORALES: [address] [place] [address] [place] [address], , Vitals BP:108/74 sitting L arm 11/30/2017 10:23 am 104/76 sitting R arm 11/30/2017 10:24 amBP Cuff Size:adult 11/30/2017 10:23 am adult 11/30/2017 10:24 amHR:84,irreg,murmur 11/30/2017 10:25 amWt:164 lbs 11/30/2017 10:23 amNotes:weight stable at 164, home INR 1.2 very SOB with any exertion 11/30/2017 10:26 amAllergies Reviewed Allergies [id number] REDUCTASE INHIBITORSMedications Reviewed Medications amiodarone 200 mg /02/18 filledCaremarkbumetanide 2 mg zhupsw96/06/18 filledCaremarkcefUROXime axetil 500 mg triqqw93/01/17 filledCaremarkcephALEXin 500 mg /19/18 filledCaremarkciprofloxacin 500 mg tudmrr96/07/17 filledCaremarkdigoxin 125 mcg nmywvj68/19/17 filledCaremarkdoxycycline hyclate 100 mg drcfjen41/11/18 filledCaremarkfurosemide 20 mg /20/17 filledCaremarkfurosemide 40 mg apewan47/19/18 filledCaremarkhydroCHLOROthiazide 12.5 mg /28/17 filledCaremarkmetoprolol succinate ER 100 mg tablet,extended release 24 hr09/12/17 filledCaremarkmorphine 15 mg immediate release phhgon61/07/18 filledCaremarkolmesartan 20 mg /05/17 filledCaremarkpotassium chloride ER 20 mEq tablet,extended release(part/cryst)10/20/17 filledCaremarkrOPINIRole 1 mg cldixo79/02/18 filledCaremarksotalol 80 mg /06/18 filledCaremarktemazepam 15 mg syewhdn94/09/18 filledCaremarkwarfarin 1 mg kfhnab70/10/18 filledCaremarkwarfarin 2 mg toxmtj22/26/18 filledCaremarkwarfarin 2.5 mg fzawnk68/17/17 filledCaremarkwarfarin 3 mg bctotr66/05/18 filledCaremarkwarfarin 4 mg /12/17 filledCaremarkwarfarin 5 mg blcayy94/09/17 filledCaremarkProblems Reviewed Problems Tricuspid valve regurgitation - Onset: 11/23/2017 Pulmonary hypertension - Onset: 11/23/2017 Mitral valve regurgitation - Onset: 11/23/2017 Congestive heart failure - Onset: 11/23/2017 HISTORY AND PHYSICAL [id number] HEAD,DINA Chase Family History Reviewed Family History Unspecified Relation- Malignant neoplastic diseaseSocial History Reviewed Social History Cardiology Family history of heart disease?: N Smoking Status: Never smoker High Cholesterol: N High blood pressure: N Overweight: Y Obese: N Diabetes: N Alcohol intake: None Diet: Regular Surgical History Reviewed Surgical History AICD coronary angiography Past Medical History Reviewed Past Medical History Arrhythmia: Y Atrial fibrillation: Y Heart Disease: Y - congestive heart failure Heart Murmur: Y Hypertension: Y - pulmonary Irregular heart beat: Y Shortness of Breath: Y Swelling of Ankles, Feet or Hands: Y Valve disease: Y Warfarin Management: Y Documents for Discussion N/A Screening None recorded. HPI Valvular Heart Disease Reported by patient. Context: mitral and tricuspid regurg Mitral Insufficiency: severe Associated Symptoms: palpitations; chest pain end-stage mitral valve regurgitation and tricuspid valve regurgitation Congestive heart failure Congestive heart failure continues despite maximal medical management ROS Patient reports weight loss (6 lbs) and exercise intolerance but reports no fever, no night sweats, and no significant weight gain. He reports dry eyes but reports no irritation and no vision change. He reports jugular vein distension but reports no swollen glands. He reports shortness of breath when walking, shortness of breath when lying down, palpitations, and known heart murmur but reports no chest pain and no arm pain on exertion. He reports shortness of breath but reports no c ough, no wheezing, and no coughing up blood. He reports muscle aches, muscle weakness, and arthralgias/joint pain but reports no back pain and no swelling in the extremities. HISTORY AND PHYSICAL [id number] HEAD,DINA S He reports no difficulty hearing and no ear pain. He reports no frequent noseblee ds and no nose/sinus problems. He reports no sore throat, no bleeding gums, no snoring, no dry mouth, no mouth ulcers, no oral abnormalities, and no teeth problems. He reports no abdominal pain, no vomiting, normal appetite, no diarrhea, not vomiting bloo d , no nausea, and no constipation. He reports no incontinence, no difficulty urinating, no hematuria, and no increased frequency. He reports no abnormal mole, no jaundice, and no rashes. He reports no loss of consciousness, no weakness, no numbness, no sei z ures, no dizziness, and no headaches. He reports no depression, no sleep disturbances, feeling safe in relationship, and no alcohol abuse. He reports no fatigue. He reports no swollen glands and no bruising. He reports no runny nose, no sinus pressure, no itching, no hives, and no frequent sneezing. ROS as noted in the HPI Physical Exam Patient is a 81-year-old male. Constitutional: General Appearance well developed and overweight. Level of Distress chronically ill. Ambulation ambulation with cane. Cardiovascular: Apical Impulse not displaced, no thrill, and displaced. Heart Auscultation normal s1 and s2, no rubs or gallops, and irregularly irregular and murmur (systolic murmurs right sternal border and left sternal border). Neck Vessels JVD and hepatojugular reflux. Arterial Pulses no abdominal aorta bruits or femoral bruits; popliteal diminished (bilateral) and dorsalis pedis diminished (bilateral); and 2+ bilateral, carotid 2+ bilateral, and femoral 2+ bilateral. Edema no edema or varicosities. Lungs: Repiratory Effort no dyspnea. Percussion no dullness or flatness and hyperresonance . Auscultation no wheezing or rhonchi; rales / crackles on the left and the right; and decreased breath sounds, diminished air movement, and wet rales / crackles. Abdomen: Bowl Sounds normal. Inspection and Palpation no tenderness, guarding, masses, or rebound tenderness and soft and non-distended. Liver non-tender and no hepatomegaly. Spleen non-tender and no splenomegaly. Hernia none palpable. Musculoskeletal System: Gait And Stance irregular gait and stance. Digits and Nails no cyanosis and abnormal nails. Joints, Bones, and Muscles limited ROM and abnormal strength. Neurologic: Cranial Nerves grossly intact. Reflexes DTRs 2+ bilaterally throughout. Sensation grossly intact. Lymph Nodes: Lymph Nodes no cervical LAD, supraclavicular LAD, axillary LAD, or inguinal LAD. Eyes: Lids and Conjunctivae no discharge or pallor and non-injected. Pupils PERRLA. Cornea grossly intact. EOM EOMI. Lens clear. Sclerae non-icteric. Neck: Neck no masses or enlarged lymph nodes and supple, trachea midline, and carotid bruits (transmitted aortic murmur). Thyroid no enlargement or nodules and non-tender. Skin: Inspection and Palpation no rash, lesions, ulcers, jaundice, or abnormal nevi. Assessment / Plan ssevere mitral regurgitation HISTORY AND PHYSICAL [id number] HEAD,DINA Chase Severe tricuspid regurgitation Congestive heart failure systolic diastolic acute on chronic 1. Mitral valve regurgitation I34.0: Nonrheumatic mitral (valve) insufficiency HEART VALVE DISEASE: CARE INSTRUCTIONS MITRAL VALVE REGURGITATION: CARE INSTRUCTIONS 2. 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 Congestive heart failure I50.9: Heart failure, unspecified HEART FAILURE: CARE INSTRUCTIONS LEARNING ABOUT HEART FAILURE Discussion Notes I think the patient requires hospitalization for congestive heart failure. He has become more short of breath since he has been out of the hospital and has end-stage valvular heart disease. he has end-stage valvular heart disease mitral regurgitation and tricuspid valve regurgitation. I have discussed his disease process with him and his in detail as well as the alternative methods of treatment we discussed mitral valve replacement and tricuspid valve repair including the exp ected benefits and risks which include bleeding, infection, stroke, , and the imponderables. He and his family understand all the above and wish to proceed with hospitalization and possible surgery. CLEO IGNACIO MD at 0741 CC: [id number] DICTATION DATE: 11/30/17 1000 KAIAKO KURA KAUPAPA MAORI: MANNY 12/01/17 1148 ADM IN [facility] [address] [id number]
--- NOTE | ~2017-11-30 | EC ---
PATIENT:DINA HENRY DATE OF SERVICE: 11/30/17 SEX: M MEDICAL RECORD: [id number] DATE OF : 39 [facility] AGE OF PATIENT: 82 ADMISSION DATE: 11/30/17 REFERRING PHYSICIAN: INTERPRETING PHYSICIAN: XIOMY OSBORNE MD ECHOCARDIOGRAM REPORT ECHO CHARGES 5 ECHO LIMITED Date: 12/07 1 DOPPLER ECHO COLOR FLOW 2 DOPPLER ECHO PULSE CLINICAL DIAGNOSIS: CHF - S/P MVR/TVR ECHOCARDIOGRAPHIC MEASUREMENTS (adult normal given) AC root (d.<3.7cm) 0 cm LV Septum d (<1.2 cm> 0 cm Valve Excursion 0 cm LV Septum (systole) 0 cm Left Atria (s.<4.0cm> 0 cm LVPW d(<1.2cm) 0 cm RV (d.<2.3cm) 0 cm LVPW (sytole) 0 cm LV diastole(<5.6CM) 0 cm MV E-F(>70mm/sec) 0 cm LV systole 0 cm LVOT Diameter 0 cm MV exc.(>10mm) 0 cm Est.ejection fraction (50-75%) 0 % DOPPLER: LVIT 0 cm/sec A 0 cm/sec E 0 cm/sec LA 0 cm/sec RVSP 43.1 mmHg LVOT 0 cm/sec AOP1/2T 0 m/s Asc. Ao 0 cm/sec RVOT 0 cm/sec RA 0 cm/sec PA 0 cm/sec AV Gradient Peak 0 mmHg AV Mean 0 mmHg AV Area 0 cm MV Gradient Peak 0 mmHg MV Mean 0 mmHg MV Area 0 cm COMMENTS: LIMITED STUDY (2-D,COLOR,DOPPLER) COMPLETE ECHO DONE ON 11/30/17 Mirror Silverer: 1 RONNI CASTILLOOE Processing Tech: 4 Dr. Osborne TAPE# PACS Pericardial Effusion N DATE OF SERVICE: PROCEDURE: Echocardiogram. FINDINGS: 1. Left ventricle appears to be hyperdynamic. Ejection fraction is 55% to 65%. 2. The mitral valve appears to be a replaced valve. There is no perivalvular leak. There is good function. 3. The aortic valve appears to be grossly normal. 4. The tricuspid valve has a mild perivalvular leak, but otherwise much ECHOCARDIOGRAM REPORT [id number] DINA HENRY improved, status post tricuspid valve repair. 5. There is severe biatrial enlargement. 6. The RVSP appears to be a 30-35 mmHg. 7. There is no significant pericardial effusion. CONCLUSION: Status post valve replacement and valve modification of the mitral and tricuspid respectively. The patient has good valvular structure and function, preserved LV systolic function. The RVSP is near normal. TRANSINT:[id number] Voice Confirmation ID: [id number] DOCUMENT ID: [id number] XIOMY OSBORNE MD at 0927 CC: [id number] DICTATION DATE: 12/09/17 1014 MOLECULAR BIOLOGIST: 12/09/17 1043 ADM IN [facility] [address] [place] [address]
--- NOTE | ~2017-11-30 | CN ---
PATIENT NAME:DINA BALTAZAR MEDICAL RECORD: [id number] : 39 LOCATION:[facility] ADMIT DATE: 11/30/17 ACCOUNT: [id number] CONSULTING PHYSICIAN: DEEPAK WOLF MD REFERRING PHYSICIAN: CLEO IGNACIO MD DATE OF CONSULTATION: 12/01/2017 DIAGNOSES: 1. Mitral valve disorder - mitral regurgitation. 2. Chronic atrial fibrillation. 3. Coronary artery disease. 4. Congestive heart failure, chronic systolic dysfunction. HISTORY OF PRESENT ILLNESS: Mr. Baltazar presents with heart failure symptomatology. He is having significant dysrhythmias. It appears that his underlying rhythm is atrial fibrillation. He has tachyarrhythmias with a change in his complex mostly it is a rate related bundle on the atrial fibrillation. He is on sotalol 40 mg b.i.d. and has a systolic blood pressure in the 80s. PHYSICAL EXAMINATION: GENERAL APPEARANCE: Well-nourished, well-developed, appears stated age. Level of distress, comfortable. PSYCHIATRIC: Mental status, alert, normal affect. Orientation, oriented to time, place and person. EYES: Lids and conjunctiva, noninjected. No discharge, no pallor. ENT: Lips, teeth, gums, normal dentition. Oropharynx, no cyanosis, no pallor. NECK: Carotid arteries, bilateral normal upstroke, no bruits, no thrills. JUGULAR VEINS: No jugular venous pressure or distention. CERVICAL LYMPH NODES: Nontender, nonenlarged. THYROID: Not enlarged. Nontender. No nodules. LUNGS: Respiratory effort, unlabored. CHEST: Normal curvature. No thoracic deformity. No chest wall tenderness. Percussion, resonant. Auscultation, clear. No wheezes, no rales, no rhonchi. CARDIOVASCULAR: Irregularly irregular with atrial fibrillation. EXTREMITIES: No cyanosis, no edema. Peripheral pulses, full and equal in all extremities, except as noted. No bruits appreciated. ABDOMEN: Soft, nondistended. Normal aorta. No bruit. Nontender. No masses. Liver, nontender, no hepatomegaly. Spleen, nontender, no splenomegaly. MUSCULOSKELETAL: No joint tenderness. No joint swelling. No erythema. NEUROLOGICAL: Normal gait, normal strength, normal tone. SKIN: Warm and dry. OVERALL IMPRESSION: Atrial fibrillation, not well controlled on the sotalol, very limited by his blood pressure; however, his renal status is okay, we will use digoxin 0.5 mg times 1 followed by digoxin 0.125 q. day starting tomorrow. 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
--- NOTE | ~2017-11-30 | OP ---
PATIENT NAME: DINA HENRY MEDICAL RECORD: [id number] :39 [facility] ADMISSION DATE:11/30/17 SURGEON: RICKY IGNACIO MD DATE OF OPERATION: 12/02/2017 SURGEON: Ricky Ignacio MD ANESTHESIA: General, Dr. Hernandez. OPERATION PERFORMED: 1. Mitral valve replacement utilizing a [address] [place] tissue valvular prosthesis. 2. Tricuspid annuloplasty, #32 MC3 Pandya tricuspid annuloplasty ring. PREOPERATIVE DIAGNOSES: Severe mitral regurgitation, severe tricuspid regurgitation, left and right ventricular dysfunction. POSTOPERATIVE DIAGNOSES: Severe mitral regurgitation, severe tricuspid regurgitation, left and right ventricular dysfunction. INDICATION FOR OPERATION: Severe mitral regurgitation, severe tricuspid regurgitation. FINDINGS AT OPERATION: 1. Severe mitral regurgitation, heavily calcified posterior annulus. 2. Severe tricuspid regurgitation due to annular dilatation. 3. Both right and left ventricular dysfunction. ESTIMATED BLOOD LOSS: Cell Saver was used. DESCRIPTION OF PROCEDURE: After informed consent and adequate preoperative medication and evaluation, the patient was brought to the operating room, placed in supine position. After induction of general endotracheal anesthesia and application of appropriate monitoring devices, the chest, neck, abdomen, and both legs were prepped and draped in a sterile field, utilizing Betadine scrub, alcohol, and Betadine solution. A Betadine-impregnated drape was also used. Median sternotomy incision was used and dissection carried down the fascia. Hemostasis maintained with electrocautery. The pericardium was opened. The pericardial well was performed utilizing pericardial traction sutures. The patient was given a calculated dose of heparin and cannulated in a standard fashion utilizing one aortic and bicaval cannulation with caval tapes. Myocardial cooling pen and temperature probe were also used. Retrograde cannula in the coronary sinus was also used in addition to the aortic cardioplegia site. The patient was placed on cardiopulmonary bypass, cooled to 32 degrees centigrade. A cross clamp was placed just proximal to the aortic cannula and the patient was given cardioplegic solution through the aortic root. The right atrium was opened. A cannula was placed in the coronary sinus. The left atrium was then opened. The valve explored. The anterior leaflet of the mitral valve was disconnected at the annulus and retracted posteriorly. The valve sized to a 31 [place] [place]. Circumferential valve sutures were placed through the posterior leaflet and anterior leaflet posteriorly preserving the chordae. The sutures were then placed in the sewing ring of the valve. The valve lowered into position and secured. The atrium was closed in 2 layers partially utilizing 3-0 Prolene suture. Attention was then turned toward the tricuspid annulus. The valve was examined and sized. Valve sutures were placed in the annulus for an OPERATIVE REPORT [id number] HEAD,DINA Chase MC3 annuloplasty ring, was sized to a 32. The sutures were then placed through the annuloplasty ring. The annuloplasty ring lowered into position and tested. The valve was competent. The right atrium was then closed with 2 layers of 5-0 Prolene suture. All maneuvers to remove trapped air were performed. The patient was given warm cardioplegic reperfusion and controlled reperfusion. The patient rewarmed to 37 degrees centigrade. Two ventricular pacing wires were placed on the heart and brought out through the epigastric area. The patient was weaned cardiopulmonary bypass and after being stable off bypass, he was given a calculated dose of protamine to reverse the heparin. Hemostasis was achieved. The patient had a coagulopathy preop making hemostasis difficult; however, he was given blood products as well as careful hemostasis. A #40 right angle and #36 chest tubes were brought in through the epigastric area and placed in mediastinum. Chest was again irrigated. Instrument count and sponge count were correct times 2. Chest closed in layers utilizing #7 wire on the sternum, #2 Vicryl on linea alba and pectoralis fascia. Subcutaneous tissue approximated with 2-0 Vicryl and skin approximated with 3-0 subcuticular Vicryl. Sterile dressings were applied. The patient tolerated the procedure and was transferred to the [facility] ICU in critical, but stable condition. TRANSINT:[id number] Voice Confirmation ID: [id number] DOCUMENT ID: [id number] RICKY IGNACIO MD at 1358 CC: [id number] DICTATION DATE: 12/02/17 155 CLINICAL DOCUMENTATION SPECIALIST: 12/02/17 1656 ADM IN [place] [id number] [place] [id number]
--- NOTE | ~2017-11-30 | EC ---
PATIENT:DINA HENRY DATE OF SERVICE: 11/30/17 SEX: M MEDICAL RECORD: [id number] DATE OF : 39 LOCATION:[place] [address] AGE OF PATIENT: 81 ADMISSION DATE: 11/30/17 REFERRING PHYSICIAN: INTERPRETING PHYSICIAN: DEEPAK VELA MD ECHOCARDIOGRAM REPORT ECHO CHARGES 4 ECHO COMPLETE Date: 11/30 CLINICAL DIAGNOSIS: CHF EXCERBATION ECHOCARDIOGRAPHIC MEASUREMENTS (adult normal given) AC root (d.<3.7cm) 2.7 cm LV Septum d (<1.2 cm> 1.1 cm Valve Excursion 1.3 cm LV Septum (systole) 1.7 cm Left Atria (s.<4.0cm> 6.1 cm LVPW d(<1.2cm) 1.2 cm RV (d.<2.3cm) 3.1 cm LVPW (sytole) 2.2 cm LV diastole(<5.6CM) 6.5 cm MV E-F(>70mm/sec) cm LV systole 4.1 cm LVOT Diameter 1.8 cm MV exc.(>10mm) cm Est.ejection fraction (50-75%) % DOPPLER: LVIT cm/sec A cm/sec E 143 cm/sec LA cm/sec RVSP 68.1 mmHg LVOT 76.0 cm/sec AOP1/2T m/s Asc. Ao 267 cm/sec RVOT 55.0 cm/sec RA cm/sec PA 73.0 cm/sec AV Gradient Peak 29.0 mmHg AV Mean 16.0 mmHg AV Area 0.6 cm MV Gradient Peak 16.0 mmHg MV Mean 5.0 mmHg MV Area cm COMMENTS: [employer]: Holli CASTILLOOE Fuel Quality Tech: 1 Dr. Vela TAPE# PACS Pericardial Effusion N DATE OF SERVICE: 11/30/2017 ECHOCARDIOGRAM FINDINGS: 1. Left ventricular chamber size is mildly dilated. Left ventricular systolic function is preserved. Overall ejection fraction is 60%. 2. Left atrium is markedly dilated at 6.1 cm. Right atrium and right ventricular chamber sizes are as well severely dilated. 3. Valvular structures: Aortic valve is slightly calcified and appears to be ECHOCARDIOGRAM REPORT [id number] DINA HENRY mild to moderately stenotic. There is gradient of 29 mm across the valve. The valve area calculates to 0.6 cm-squared, but visually appears to be greater than 1.0 cm-squared. 4. Mitral valve shows prolapse of the posterior leaflet. Otherwise, valvular structures have normal structure and motion. 5. Doppler interrogation reveals severe mitral regurgitation, severe tricuspid regurgitation. No other valvular insufficiency or stenosis and pulmonary systolic pressure is elevated estimated at 68 mmHg. 6. No evidence of pericardial effusion or left ventricular thrombus. TRANSINT:[id number] Voice Confirmation ID: [id number] DOCUMENT ID: [id number] DEEPAK VELA MD at 1810 CC: [id number] DICTATION DATE: 11/30/17 1617 AUTOMOTIVE PORTER: 11/30/17 1908 ADM IN [facility] [address] [place] [id number]
[~2017-11-30 11:34] MED LIST: BETAPACE 80 MG80 MG PO; BUMEX2 MG PO; COLACE100 MG PO; COUMADIN3 MG PO; K-DUR20 MEQ PO; KEFLEX500 MG PO; MILK OF MAGNESI30 ML PO; MORPHINE IMMEDI15 MG PO
[2017-11-30 13:10] LABS: HEMATOCRIT 39.6 % (42.0-54.0); MCH 34.7 pg (26.0-34.0); MCHC 32.8 g/dL (31.0-37.0); MCV 105.6 fL (80.0-100.0); MEAN PLATELET VOLUME 10.9 fL (7.4-10.4); RBC 3.75 10x6/uL (4.20-6.10); RDW 17.1 % (11.5-14.5); WBC 3.5 10x3/uL (4.8-10.8)
[2017-11-30 13:17] LABS: CALCIUM 8.8 mg/dL (8.5-10.1); CARBON DIOXIDE 33.8 mmol/L (21.0-32.0); CREATININE - SERUM 1.3 mg/dL (0.6-1.3); POTASSIUM - SERUM 3.8 mmol/L (3.5-5.1)
[2017-11-30 13:24] LABS: INR 1.24 (0.85-1.17); PROTIME 15.2 SECONDS (11.6-15.0)
[2017-11-30 14:48] LABS: PLT FUNCT.(P2Y12) PLAVIX 162 PRU (194-418)
[2017-12-01] VITALS (89 sets, daily range): BP systolic 83–113; BP diastolic 32–75; BMI 23.3
[2017-12-01 04:14] LABS: HEMATOCRIT 37.4 % (42.0-54.0); HEMOGLOBIN 12.2 g/dL (13.5-17.5); MCH 34.5 pg (26.0-34.0); MCHC 32.6 g/dL (31.0-37.0); MCV 105.6 fL (80.0-100.0); MEAN PLATELET VOLUME 10.8 fL (7.4-10.4); RBC 3.54 10x6/uL (4.20-6.10); RDW 16.8 % (11.5-14.5)
[2017-12-01 04:19] LABS: WBC 2.6 10x3/uL (4.8-10.8)
[2017-12-01 04:24] LABS: INR 1.35 (0.85-1.17); PROTIME 16.2 SECONDS (11.6-15.0)
[2017-12-01 04:30] LABS: ALBUMIN 2.7 g/dL (3.4-5.0); ANION GAP 7.7 mmol/L (8-16); BILIRUBIN - DIRECT 1.16 mg/dL (0.00-0.30); BILIRUBIN - INDIRECT 1.22 mg/dL (0.00-1.00); BILIRUBIN - TOTAL 2.38 mg/dL (0.2-1.3); CALCIUM 8.4 mg/dL (8.5-10.1); CARBON DIOXIDE 34.5 mmol/L (21.0-32.0); CREATININE - SERUM 1.2 mg/dL (0.6-1.3); PROTEIN - SERUM 5.4 g/dL (6.4-8.2)
[2017-12-01 04:49] LABS: POTASSIUM - SERUM 3.2 mmol/L (3.5-5.1)
[2017-12-01 14:18] LABS: APTT 33.8 SECONDS (22.8-39.4); INR 1.3 (0.85-1.17); PROTIME 15.7 SECONDS (11.6-15.0)
[2017-12-01 14:21] LABS: BASOPHILS 0 % (0-2); EOSINOPHILS 1.3 % (0-7); HEMATOCRIT 39.4 % (42.0-54.0); IMMATURE GRANULOCYTES 0.4 % (0-5); MCH 35.2 pg (26.0-34.0); MCV 106.8 fL (80.0-100.0); MEAN PLATELET VOLUME 10.7 fL (7.4-10.4); MONOCYTES 11.6 % (2-11); NEUTROPHILS 66.7 % (40-80); PLATELET COUNT 82 10x3/uL (130-400); RBC 3.69 10x6/uL (4.20-6.10); WBC 2.3 10x3/uL (4.8-10.8)
[2017-12-01 14:32] LABS: ALBUMIN 2.9 g/dL (3.4-5.0); ANION GAP 8.7 mmol/L (8-16); BILIRUBIN - TOTAL 2.5 mg/dL (0.2-1.3); CALCIUM 8.4 mg/dL (8.5-10.1); CARBON DIOXIDE 34.1 mmol/L (21.0-32.0); CREATININE - SERUM 1.4 mg/dL (0.6-1.3); PHOSPHOROUS 3.4 mg/dL (2.5-4.9); POTASSIUM - SERUM 3.8 mmol/L (3.5-5.1); PROTEIN - SERUM 5.7 g/dL (6.4-8.2); T4 THYROXIN - FREE 1.26 ng/dL (0.76-1.46); THYROID STIMULATING HORMONE 0.78 uIU/mL (0.36-3.74); URIC ACID 7.4 mg/dL (2.6-7.2)
[2017-12-01 14:57] LABS: APPEARANCE CLEAR (CLEAR); BILIRUBIN NEGATIVE (NEGATIVE); COLOR YELLOW (YELLOW); GLUCOSE NEGATIVE (NEGATIVE); KETONE NEGATIVE (NEGATIVE); NITRITE NEGATIVE (NEGATIVE); PROTEIN NEGATIVE (NEGATIVE)
[2017-12-02] VITALS (88 sets, daily range): BP systolic 60–130; BP diastolic 35–70
[2017-12-02 06:37] LABS: HEMOGLOBIN 12.6 g/dL (13.5-17.5); MCHC 33.2 g/dL (31.0-37.0); MCV 105.6 fL (80.0-100.0); MEAN PLATELET VOLUME 10.5 fL (7.4-10.4); RBC 3.6 10x6/uL (4.20-6.10); RDW 16.6 % (11.5-14.5); WBC 2.7 10x3/uL (4.8-10.8)
[2017-12-02 06:49] LABS: ANION GAP 8.1 mmol/L (8-16); CALCIUM 8.6 mg/dL (8.5-10.1); CARBON DIOXIDE 33.3 mmol/L (21.0-32.0); CREATININE - SERUM 1.3 mg/dL (0.6-1.3); POTASSIUM - SERUM 3.4 mmol/L (3.5-5.1)
[2017-12-02 08:50] LABS: PLT FUNCT.(P2Y12) PLAVIX 228 PRU (194-418)
[2017-12-02 14:22] LABS: MCH 34.6 pg (26.0-34.0); MCHC 32.8 g/dL (31.0-37.0); MCV 105.4 fL (80.0-100.0); MEAN PLATELET VOLUME 9.7 fL (7.4-10.4); RDW 16.6 % (11.5-14.5); WBC 2.4 10x3/uL (4.8-10.8)
[2017-12-02 14:23] LABS: CALC OSMOLALITY 293 mosm/kg (275-300); CALCIUM 10.5 mg/dL (8.5-10.1); CARBON DIOXIDE 26.6 mmol/L (21.0-32.0); CHLORIDE - SERUM 110 mmol/L (98-107); GLUCOSE 138 mg/dL (74-106); SODIUM 145 mmol/L (136-145); UREA NITROGEN 21 mg/dL (7-18); eGFR NON AFRICAN AMERICAN 76 mL/min (90-120)
[2017-12-02 14:33] LABS: APTT 46.2 SECONDS (22.8-39.4); HEMATOCRIT 27.4 % (42.0-54.0); INR 1.85 (0.85-1.17); PROTIME 20.7 SECONDS (11.6-15.0); RBC 2.6 10x6/uL (4.20-6.10)
[2017-12-02 16:11] LABS: INR 1.89 (0.85-1.17); PROTIME 21.1 SECONDS (11.6-15.0)
[2017-12-02 17:51] LABS: APTT 48.9 SECONDS (22.8-39.4); INR 1.58 (0.85-1.17); PROTIME 18.3 SECONDS (11.6-15.0)
[2017-12-02 19:15] LABS: INR 1.46 (0.85-1.17); PROTIME 17.2 SECONDS (11.6-15.0)
[2017-12-03] VITALS (93 sets, daily range): BP systolic 71–112; BP diastolic 5–57
[2017-12-03 00:09] LABS: INR 1.39 (0.85-1.17); PROTIME 16.6 SECONDS (11.6-15.0)
[2017-12-03 06:24] LABS: BASOPHILS 0.2 % (0-2); EOSINOPHILS 0.6 % (0-7); HEMATOCRIT 26.5 % (42.0-54.0); HEMOGLOBIN 9.2 g/dL (13.5-17.5); IMMATURE GRANULOCYTES 0.2 % (0-5); LYMPHOCYTES 10.9 % (15-50); MCH 31.1 pg (26.0-34.0); MCHC 34.7 g/dL (31.0-37.0); MEAN PLATELET VOLUME 9.7 fL (7.4-10.4); NEUTROPHILS 75.1 % (40-80); PLATELET COUNT 84 10x3/uL (130-400); RBC 2.96 10x6/uL (4.20-6.10); RDW 16.2 % (11.5-14.5)
[2017-12-03 06:27] LABS: INR 1.43 (0.85-1.17)
[2017-12-03 06:41] LABS: ALBUMIN 2.2 g/dL (3.4-5.0); BILIRUBIN - TOTAL 3.29 mg/dL (0.2-1.3); CALCIUM 8.8 mg/dL (8.5-10.1); CARBON DIOXIDE 24.8 mmol/L (21.0-32.0); MAGNESIUM - SERUM 2.5 mg/dL (1.8-2.4); PROTEIN - SERUM 4.3 g/dL (6.4-8.2)
[2017-12-03 06:44] LABS: CREATININE - SERUM 1.8 mg/dL (0.6-1.3); PHOSPHOROUS 4.5 mg/dL (2.5-4.9); POTASSIUM - SERUM 3.8 mmol/L (3.5-5.1)
[2017-12-03 06:59] LABS: MCV 89.5 fL (80.0-100.0); WBC 4.9 10x3/uL (4.8-10.8)
[2017-12-03 12:13] LABS: INR 1.44 (0.85-1.17); PROTIME 17.1 SECONDS (11.6-15.0)
[2017-12-03 16:34] LABS: HEMATOCRIT 24.6 % (42.0-54.0); HEMOGLOBIN 8.5 g/dL (13.5-17.5)
[2017-12-03 16:44] LABS: POTASSIUM - SERUM 3.7 mmol/L (3.5-5.1)
[2017-12-04] VITALS (92 sets, daily range): BP systolic 77–118; BP diastolic 36–65; Ht 177.8 cm; Wt 92.7 kg
[2017-12-04 05:32] LABS: HEMATOCRIT 26.1 % (42.0-54.0); HEMOGLOBIN 8.8 g/dL (13.5-17.5); MCH 30.3 pg (26.0-34.0); MCHC 33.7 g/dL (31.0-37.0); MEAN PLATELET VOLUME 9.5 fL (7.4-10.4); RBC 2.9 10x6/uL (4.20-6.10); RDW 16.6 % (11.5-14.5); WBC 5.4 10x3/uL (4.8-10.8)
[2017-12-04 05:58] LABS: ANION GAP 11.6 mmol/L (8-16); CALCIUM 8.1 mg/dL (8.5-10.1); CARBON DIOXIDE 28.9 mmol/L (21.0-32.0); CREATININE - SERUM 1.6 mg/dL (0.6-1.3); POTASSIUM - SERUM 3.5 mmol/L (3.5-5.1)
[2017-12-04 10:38] LABS: MAGNESIUM - SERUM 2.4 mg/dL (1.8-2.4); POTASSIUM - SERUM 3.4 mmol/L (3.5-5.1)
[2017-12-04 10:41] LABS: TROPONIN-I 4.382 ng/mL (0.000-0.060)
[2017-12-05] VITALS (68 sets, daily range): BP systolic 97–131; BP diastolic 48–69
[2017-12-05 06:38] LABS: HEMOGLOBIN 9.5 g/dL (13.5-17.5); MCH 30.6 pg (26.0-34.0); MCHC 33.9 g/dL (31.0-37.0); MCV 90.3 fL (80.0-100.0); MEAN PLATELET VOLUME 10.3 fL (7.4-10.4); RBC 3.1 10x6/uL (4.20-6.10); RDW 16.7 % (11.5-14.5)
[2017-12-05 06:41] LABS: ANION GAP 11.3 mmol/L (8-16); BILIRUBIN - TOTAL 5.8 mg/dL (0.2-1.3); CALCIUM 7.8 mg/dL (8.5-10.1); CARBON DIOXIDE 28.3 mmol/L (21.0-32.0); CREATININE - SERUM 1.3 mg/dL (0.6-1.3); POTASSIUM - SERUM 3.6 mmol/L (3.5-5.1); PROTEIN - SERUM 4.3 g/dL (6.4-8.2)
[2017-12-05 07:00] LABS: WBC 3.8 10x3/uL (4.8-10.8)
[2017-12-05 08:41] LABS: INR 1.38 (0.85-1.17); PROTIME 16.5 SECONDS (11.6-15.0)
[2017-12-05 17:15] LABS: MAGNESIUM - SERUM 2.2 mg/dL (1.8-2.4)
[2017-12-05 17:16] LABS: POTASSIUM - SERUM 3.8 mmol/L (3.5-5.1)
[2017-12-06] VITALS (74 sets, daily range): BP systolic 89–133; BP diastolic 41–69
[2017-12-06 06:12] LABS: BASOPHILS 0 % (0-2); HEMATOCRIT 28.9 % (42.0-54.0); HEMOGLOBIN 9.5 g/dL (13.5-17.5); LYMPHOCYTES 13.3 % (15-50); MCH 30.5 pg (26.0-34.0); MCHC 32.9 g/dL (31.0-37.0); MEAN PLATELET VOLUME 10.5 fL (7.4-10.4); MONOCYTES 13.6 % (2-11); NEUTROPHILS 70.1 % (40-80); RBC 3.11 10x6/uL (4.20-6.10); RDW 16.9 % (11.5-14.5); WBC 3.3 10x3/uL (4.8-10.8)
[2017-12-06 06:13] LABS: MCV 92.9 fL (80.0-100.0); PLATELET COUNT 57 10x3/uL (130-400)
[2017-12-06 06:20] LABS: ALBUMIN 2.2 g/dL (3.4-5.0); ANION GAP 10.8 mmol/L (8-16); BILIRUBIN - TOTAL 7.35 mg/dL (0.2-1.3); CALCIUM 7.9 mg/dL (8.5-10.1); CARBON DIOXIDE 29.7 mmol/L (21.0-32.0); CREATININE - SERUM 1.3 mg/dL (0.6-1.3); MAGNESIUM - SERUM 2.2 mg/dL (1.8-2.4); PHOSPHOROUS 2.5 mg/dL (2.5-4.9); POTASSIUM - SERUM 3.5 mmol/L (3.5-5.1); PROTEIN - SERUM 4.7 g/dL (6.4-8.2)
[2017-12-06 06:33] LABS: PLATELET ESTIMATE DECREASED
[2017-12-06 06:50] LABS: APTT 38.9 SECONDS (22.8-39.4); INR 1.18 (0.85-1.17); PROTIME 14.6 SECONDS (11.6-15.0)
[2017-12-06 06:57] LABS: D-DIMER-QUANTITATIVE 12.85 ug/mLFEU (0.20-0.54)
[2017-12-07] VITALS (83 sets, daily range): BP systolic 85–135; BP diastolic 38–91
[2017-12-07 06:05] LABS: BASOPHILS 0.2 % (0-2); EOSINOPHILS 0.8 % (0-7); HEMATOCRIT 30.5 % (42.0-54.0); HEMOGLOBIN 10.1 g/dL (13.5-17.5); IMMATURE GRANULOCYTES 0.6 % (0-5); LYMPHOCYTES 7.9 % (15-50); MCH 30.8 pg (26.0-34.0); MCHC 33.1 g/dL (31.0-37.0); MEAN PLATELET VOLUME 9.9 fL (7.4-10.4); MONOCYTES 15.1 % (2-11); NEUTROPHILS 75.4 % (40-80); PLATELET COUNT 50 10x3/uL (130-400); RBC 3.28 10x6/uL (4.20-6.10); RDW 16.8 % (11.5-14.5)
[2017-12-07 06:08] LABS: WBC 5.1 10x3/uL (4.8-10.8)
[2017-12-07 06:21] LABS: ALBUMIN 2.3 g/dL (3.4-5.0); ANION GAP 9.8 mmol/L (8-16); BILIRUBIN - TOTAL 9.9 mg/dL (0.2-1.3); CALCIUM 8.1 mg/dL (8.5-10.1); CARBON DIOXIDE 27.8 mmol/L (21.0-32.0); CREATININE - SERUM 1.1 mg/dL (0.6-1.3); POTASSIUM - SERUM 3.6 mmol/L (3.5-5.1); PROTEIN - SERUM 4.9 g/dL (6.4-8.2)
[2017-12-08] VITALS (94 sets, daily range): BP systolic 88–130; BP diastolic 40–71
[2017-12-08 06:11] LABS: BASOPHILS 0.1 % (0-2); EOSINOPHILS 0.1 % (0-7); HEMATOCRIT 34.2 % (42.0-54.0); IMMATURE GRANULOCYTES 0.6 % (0-5); LYMPHOCYTES 4.3 % (15-50); MCH 30.6 pg (26.0-34.0); MCHC 32.2 g/dL (31.0-37.0); MONOCYTES 10.9 % (2-11); PLATELET COUNT 51 10x3/uL (130-400); RBC 3.59 10x6/uL (4.20-6.10); RDW 17.3 % (11.5-14.5)
[2017-12-08 06:25] LABS: MCV 95.3 fL (80.0-100.0); WBC 7.1 10x3/uL (4.8-10.8)
[2017-12-08 06:33] LABS: ANION GAP 11.5 mmol/L (8-16); CALCIUM 8.5 mg/dL (8.5-10.1); CARBON DIOXIDE 28.4 mmol/L (21.0-32.0); CREATININE - SERUM 1.1 mg/dL (0.6-1.3); MAGNESIUM - SERUM 2.1 mg/dL (1.8-2.4); PHOSPHOROUS 2.9 mg/dL (2.5-4.9); POTASSIUM - SERUM 3.9 mmol/L (3.5-5.1)
[2017-12-08 08:06] LABS: INR 1.26 (0.85-1.17); PROTIME 15.3 SECONDS (11.6-15.0)
[2017-12-08 17:21] LABS: MACROPHAGES BF 2 %; MESOTHELIALS BF 34 %; NEUT - BF 53 %
[2017-12-09] VITALS (71 sets, daily range): BP systolic 55–133; BP diastolic 23–73
[2017-12-09 06:34] LABS: BASOPHILS 0 % (0-2); EOSINOPHILS 0 % (0-7); HEMATOCRIT 34.8 % (42.0-54.0); HEMOGLOBIN 11.3 g/dL (13.5-17.5); IMMATURE GRANULOCYTES 0.2 % (0-5); LYMPHOCYTES 4.5 % (15-50); MCH 30.8 pg (26.0-34.0); MCHC 32.5 g/dL (31.0-37.0); MCV 94.8 fL (80.0-100.0); MEAN PLATELET VOLUME 11.6 fL (7.4-10.4); MONOCYTES 7.7 % (2-11); NEUTROPHILS 87.6 % (40-80); RBC 3.67 10x6/uL (4.20-6.10); RDW 17.9 % (11.5-14.5); WBC 6.2 10x3/uL (4.8-10.8)
[2017-12-09 06:36] LABS: ANION GAP 13.8 mmol/L (8-16); CALCIUM 8.4 mg/dL (8.5-10.1); CARBON DIOXIDE 25.6 mmol/L (21.0-32.0); CREATININE - SERUM 1.8 mg/dL (0.6-1.3); POTASSIUM - SERUM 4.4 mmol/L (3.5-5.1)
[2017-12-09 06:37] LABS: PLATELET COUNT 70 10x3/uL (130-400)
[2017-12-09 18:10] LABS: AFB SPECIMEN PROCESSING Concentration (())
[2017-12-10] VITALS (47 sets, daily range): BP systolic 55–148; BP diastolic 23–91
[2017-12-10 06:45] LABS: BASOPHILS 0 % (0-2); EOSINOPHILS 0 % (0-7); IMMATURE GRANULOCYTES 0.4 % (0-5); LYMPHOCYTES 3.4 % (15-50); MCH 30.6 pg (26.0-34.0); MCHC 33.3 g/dL (31.0-37.0); MEAN PLATELET VOLUME 10.3 fL (7.4-10.4); MONOCYTES 3.9 % (2-11); NEUTROPHILS 92.3 % (40-80); PLATELET COUNT 58 10x3/uL (130-400); RBC 3.59 10x6/uL (4.20-6.10); RDW 18.5 % (11.5-14.5); WBC 5.6 10x3/uL (4.8-10.8)
[2017-12-10 06:47] LABS: MCV 91.9 fL (80.0-100.0)
[2017-12-10 07:13] LABS: ALBUMIN 2.3 g/dL (3.4-5.0); ANION GAP 15.9 mmol/L (8-16); BILIRUBIN - TOTAL 13.6 mg/dL (0.2-1.3); CARBON DIOXIDE 24.2 mmol/L (21.0-32.0); MAGNESIUM - SERUM 2.5 mg/dL (1.8-2.4); PHOSPHOROUS 4.1 mg/dL (2.5-4.9); POTASSIUM - SERUM 4.1 mmol/L (3.5-5.1); PROTEIN - SERUM 4.7 g/dL (6.4-8.2)
[2017-12-10 07:14] LABS: INR 1.62 (0.85-1.17); PROTIME 18.7 SECONDS (11.6-15.0)
[2017-12-10 07:15] LABS: CREATININE - SERUM 2.5 mg/dL (0.6-1.3)
[2017-12-10 11:58] LABS: APPEARANCE TURBID (CLEAR); BILIRUBIN NEGATIVE (NEGATIVE); COLOR AMBER (YELLOW); GLUCOSE 50 mg/dL (NEGATIVE); KETONE SMALL mg/dL (NEGATIVE); NITRITE NEGATIVE (NEGATIVE); PROTEIN 1+ mg/dL (NEGATIVE); SPECIFIC GRAVITY 1.015 (1.005-1.020); UROBILINOGEN NORMAL (NORMAL)
[2017-12-10 12:03] LABS: AMORPHOUS SEDIMENT >1+ /lpf (NONE SEEN); BACTERIA MANY /hpf (NONE SEEN); EPITHELIAL CELLS OCC /hpf (0-5); GRANULAR CAST 0-5 /lpf (NONE SEEN); HYALINE CAST RARE /lpf (NONE SEEN); RED CELLS - URINE >50 /hpf (0-5)
[2017-12-10 12:04] LABS: CREATININE - URINE 36.9 mg/dL (30-125)
[2017-12-10 12:06] LABS: PROTEIN - URINE 361.1 mg/dL (0.0-11.9)
[2017-12-10 19:34] LABS: CREATININE - URINE 37.1 mg/dL (30-125); POTASSIUM - URINE 18.7 MMOL/L (12.0-62.0)
[2017-12-10 19:36] LABS: PRO/CRE RATIO URINE 8.9 mg/g; PROTEIN - URINE 329.4 mg/dL (0.0-11.9)
[2017-12-11] VITALS (24 sets, daily range): BP systolic 100–121; BP diastolic 45–57
[2017-12-11 05:44] LABS: BASOPHILS 0 % (0-2); EOSINOPHILS 0 % (0-7); HEMATOCRIT 33.5 % (42.0-54.0); IMMATURE GRANULOCYTES 0.3 % (0-5); LYMPHOCYTES 2.8 % (15-50); MCH 30.1 pg (26.0-34.0); MCHC 32.8 g/dL (31.0-37.0); MCV 91.8 fL (80.0-100.0); MEAN PLATELET VOLUME 10.3 fL (7.4-10.4); MONOCYTES 2.8 % (2-11); NEUTROPHILS 94.1 % (40-80); PLATELET COUNT 57 10x3/uL (130-400); RBC 3.65 10x6/uL (4.20-6.10); RDW 18.3 % (11.5-14.5)
[2017-12-11 06:01] LABS: ALBUMIN 2.7 g/dL (3.4-5.0); ANION GAP 16.6 mmol/L (8-16); BILIRUBIN - TOTAL 14.88 mg/dL (0.2-1.3); CARBON DIOXIDE 22.8 mmol/L (21.0-32.0); MAGNESIUM - SERUM 3.1 mg/dL (1.8-2.4); PHOSPHOROUS 4.5 mg/dL (2.5-4.9); POTASSIUM - SERUM 4.4 mmol/L (3.5-5.1); PROTEIN - SERUM 5.2 g/dL (6.4-8.2)
[2017-12-11 06:04] LABS: CREATININE - SERUM 3.4 mg/dL (0.6-1.3)
[2017-12-12] VITALS (26 sets, daily range): BP systolic 92–124; BP diastolic 41–56
[2017-12-12 06:30] LABS: BASOPHILS 0 % (0-2); EOSINOPHILS 0 % (0-7); HEMATOCRIT 31.3 % (42.0-54.0); HEMOGLOBIN 10.5 g/dL (13.5-17.5); IMMATURE GRANULOCYTES 0.3 % (0-5); LYMPHOCYTES 2.1 % (15-50); MCH 30.5 pg (26.0-34.0); MCHC 33.5 g/dL (31.0-37.0); MEAN PLATELET VOLUME 11.1 fL (7.4-10.4); MONOCYTES 2.6 % (2-11); PLATELET COUNT 62 10x3/uL (130-400); RBC 3.44 10x6/uL (4.20-6.10); RDW 18.3 % (11.5-14.5); WBC 7.7 10x3/uL (4.8-10.8)
[2017-12-12 06:33] LABS: ALBUMIN 2.9 g/dL (3.4-5.0); BILIRUBIN - TOTAL 11.1 mg/dL (0.2-1.3); CALCIUM 7.7 mg/dL (8.5-10.1); CREATININE - SERUM 4.2 mg/dL (0.6-1.3); PROTEIN - SERUM 5.2 g/dL (6.4-8.2)
[2017-12-12 06:38] LABS: ANION GAP 18.2 mmol/L (8-16); POTASSIUM - SERUM 5.2 mmol/L (3.5-5.1)
[2017-12-12 11:14] LABS: FUNGUS STAIN Final report (())
[2017-12-13] VITALS (25 sets, daily range): BP systolic 95–128; BP diastolic 44–53
[2017-12-13 06:02] LABS: BASOPHILS 0 % (0-2); EOSINOPHILS 0 % (0-7); HEMATOCRIT 31.6 % (42.0-54.0); HEMOGLOBIN 10.5 g/dL (13.5-17.5); IMMATURE GRANULOCYTES 0.3 % (0-5); LYMPHOCYTES 1.8 % (15-50); MCH 30.5 pg (26.0-34.0); MCHC 33.2 g/dL (31.0-37.0); MCV 91.9 fL (80.0-100.0); MEAN PLATELET VOLUME 11.5 fL (7.4-10.4); MONOCYTES 1.4 % (2-11); NEUTROPHILS 96.5 % (40-80); RBC 3.44 10x6/uL (4.20-6.10); RDW 18.4 % (11.5-14.5)
[2017-12-13 06:30] LABS: ALBUMIN 2.8 g/dL (3.4-5.0); ANION GAP 17.3 mmol/L (8-16); BILIRUBIN - TOTAL 8.92 mg/dL (0.2-1.3); CALCIUM 7.6 mg/dL (8.5-10.1); CARBON DIOXIDE 24.1 mmol/L (21.0-32.0); CREATININE - SERUM 4.2 mg/dL (0.6-1.3); POTASSIUM - SERUM 5.4 mmol/L (3.5-5.1); PROTEIN - SERUM 5.1 g/dL (6.4-8.2)
[2017-12-13 07:08] LABS: PLATELET COUNT 42 10x3/uL (130-400)
[2017-12-13 10:20] LABS: ANA REFLEX - DIRECT Negative (Negative)
[2017-12-13 16:17] LABS: HEPATITIS C ANTIBODY <0.1 (0.0-0.9)
[2017-12-13 18:10] LABS: OSMOLALITY - URINE 306 (())
[2017-12-14] VITALS (25 sets, daily range): BP systolic 95–123; BP diastolic 42–76
[2017-12-14 05:49] LABS: BASOPHILS 0 % (0-2); EOSINOPHILS 0 % (0-7); HEMATOCRIT 27.2 % (42.0-54.0); HEMOGLOBIN 9.4 g/dL (13.5-17.5); IMMATURE GRANULOCYTES 0.4 % (0-5); LYMPHOCYTES 2.4 % (15-50); MCHC 34.6 g/dL (31.0-37.0); MEAN PLATELET VOLUME 11.9 fL (7.4-10.4); MONOCYTES 2.6 % (2-11); NEUTROPHILS 94.6 % (40-80); RBC 3.03 10x6/uL (4.20-6.10); RDW 18.1 % (11.5-14.5); WBC 7.8 10x3/uL (4.8-10.8)
[2017-12-14 06:10] LABS: ALBUMIN 2.8 g/dL (3.4-5.0); BILIRUBIN - TOTAL 8.43 mg/dL (0.2-1.3); CALCIUM 7.6 mg/dL (8.5-10.1); CARBON DIOXIDE 24.9 mmol/L (21.0-32.0); CREATININE - SERUM 3.5 mg/dL (0.6-1.3); POTASSIUM - SERUM 4.9 mmol/L (3.5-5.1); PROTEIN - SERUM 4.8 g/dL (6.4-8.2)
[2017-12-14 06:20] LABS: MCV 89.8 fL (80.0-100.0)
[2017-12-14 06:23] LABS: PLATELET COUNT 47 10x3/uL (130-400)
[2017-12-14 19:12] LABS: SMOOTH MUSCLE ABS (ACTIN) 10 Units (0-19)
[2017-12-15] VITALS (24 sets, daily range): BP systolic 94–127; BP diastolic 40–56
[2017-12-15 06:24] LABS: BASOPHILS 0 % (0-2); EOSINOPHILS 0 % (0-7); HEMATOCRIT 26.1 % (42.0-54.0); HEMOGLOBIN 8.9 g/dL (13.5-17.5); IMMATURE GRANULOCYTES 0.7 % (0-5); LYMPHOCYTES 4.1 % (15-50); MCH 30.7 pg (26.0-34.0); MCHC 34.1 g/dL (31.0-37.0); MONOCYTES 2.6 % (2-11); NEUTROPHILS 92.6 % (40-80); PLATELET COUNT 52 10x3/uL (130-400); RDW 18.2 % (11.5-14.5); WBC 7.3 10x3/uL (4.8-10.8)
[2017-12-15 07:07] LABS: ANION GAP 17.1 mmol/L (8-16); CALCIUM 7.4 mg/dL (8.5-10.1); CREATININE - SERUM 3.2 mg/dL (0.6-1.3); MAGNESIUM - SERUM 3.4 mg/dL (1.8-2.4); POTASSIUM - SERUM 5.1 mmol/L (3.5-5.1)
[2017-12-16] VITALS (41 sets, daily range): BP systolic 96–134; BP diastolic 37–55
[2017-12-16 06:27] LABS: BASOPHILS 0 % (0-2); EOSINOPHILS 0 % (0-7); HEMATOCRIT 23.5 % (42.0-54.0); IMMATURE GRANULOCYTES 0.9 % (0-5); LYMPHOCYTES 4.2 % (15-50); MCH 30.9 pg (26.0-34.0); MCV 90.7 fL (80.0-100.0); MEAN PLATELET VOLUME 12.5 fL (7.4-10.4); NEUTROPHILS 91.9 % (40-80); PLATELET COUNT 55 10x3/uL (130-400); RBC 2.59 10x6/uL (4.20-6.10); RDW 18.4 % (11.5-14.5); WBC 6.7 10x3/uL (4.8-10.8)
[2017-12-16 07:05] LABS: ANION GAP 17.3 mmol/L (8-16); CALCIUM 7.1 mg/dL (8.5-10.1); CARBON DIOXIDE 26.4 mmol/L (21.0-32.0); MAGNESIUM - SERUM 3.3 mg/dL (1.8-2.4); POTASSIUM - SERUM 5.7 mmol/L (3.5-5.1)
[2017-12-17] VITALS (26 sets, daily range): BP systolic 98–132; BP diastolic 45–63
[2017-12-17 06:12] LABS: BASOPHILS 0.1 % (0-2); EOSINOPHILS 0 % (0-7); HEMATOCRIT 26.3 % (42.0-54.0); IMMATURE GRANULOCYTES 0.7 % (0-5); LYMPHOCYTES 3.3 % (15-50); MCH 30.8 pg (26.0-34.0); MCHC 34.2 g/dL (31.0-37.0); MCV 90.1 fL (80.0-100.0); MEAN PLATELET VOLUME 11.9 fL (7.4-10.4); MONOCYTES 1.3 % (2-11); NEUTROPHILS 94.6 % (40-80); PLATELET COUNT 53 10x3/uL (130-400); RBC 2.92 10x6/uL (4.20-6.10); RDW 17.5 % (11.5-14.5); WBC 8.4 10x3/uL (4.8-10.8)
[2017-12-17 06:42] LABS: ANION GAP 20.8 mmol/L (8-16); CALCIUM 7.5 mg/dL (8.5-10.1); POTASSIUM - SERUM 5.8 mmol/L (3.5-5.1)
[2017-12-17 06:54] LABS: MAGNESIUM - SERUM 3.6 mg/dL (1.8-2.4)
[2017-12-18] VITALS (22 sets, daily range): BP systolic 104–126; BP diastolic 44–72
[2017-12-18 05:30] LABS: BASOPHILS 0 % (0-2); EOSINOPHILS 0 % (0-7); HEMATOCRIT 24.8 % (42.0-54.0); HEMOGLOBIN 8.4 g/dL (13.5-17.5); IMMATURE GRANULOCYTES 0.5 % (0-5); LYMPHOCYTES 4.1 % (15-50); MCH 30.7 pg (26.0-34.0); MCHC 33.9 g/dL (31.0-37.0); MCV 90.5 fL (80.0-100.0); MEAN PLATELET VOLUME 12.2 fL (7.4-10.4); MONOCYTES 1.7 % (2-11); NEUTROPHILS 93.7 % (40-80); RBC 2.74 10x6/uL (4.20-6.10); RDW 17.7 % (11.5-14.5); WBC 9.8 10x3/uL (4.8-10.8)
[2017-12-18 05:41] LABS: PLATELET COUNT 47 10x3/uL (130-400)
[2017-12-18 06:07] LABS: CALCIUM 7.5 mg/dL (8.5-10.1); CARBON DIOXIDE 26.6 mmol/L (21.0-32.0); CREATININE - SERUM 2.8 mg/dL (0.6-1.3); POTASSIUM - SERUM 5.6 mmol/L (3.5-5.1)
[2017-12-18 06:11] LABS: MAGNESIUM - SERUM 3.6 mg/dL (1.8-2.4)
[2017-12-19] VITALS (24 sets, daily range): BP systolic 98–139; BP diastolic 38–54
[2017-12-19 06:01] LABS: BASOPHILS 0 % (0-2); EOSINOPHILS 0 % (0-7); HEMATOCRIT 23.7 % (42.0-54.0); HEMOGLOBIN 8.2 g/dL (13.5-17.5); IMMATURE GRANULOCYTES 0.5 % (0-5); MCH 31.2 pg (26.0-34.0); MCHC 34.6 g/dL (31.0-37.0); MCV 90.1 fL (80.0-100.0); MEAN PLATELET VOLUME 11.4 fL (7.4-10.4); MONOCYTES 1.2 % (2-11); NEUTROPHILS 94.3 % (40-80); RBC 2.63 10x6/uL (4.20-6.10); RDW 18.1 % (11.5-14.5); WBC 10.8 10x3/uL (4.8-10.8)
[2017-12-19 06:03] LABS: PLATELET COUNT 63 10x3/uL (130-400)
[2017-12-19 06:20] LABS: CALCIUM 7.9 mg/dL (8.5-10.1); CARBON DIOXIDE 25.6 mmol/L (21.0-32.0)
[2017-12-19 06:26] LABS: ANION GAP 19.4 mmol/L (8-16); CREATININE - SERUM 3.6 mg/dL (0.6-1.3)
[2017-12-19 06:27] LABS: MAGNESIUM - SERUM 4.1 mg/dL (1.8-2.4)
[2017-12-20] VITALS (23 sets, daily range): BP systolic 100–139; BP diastolic 45–74
[2017-12-20 06:17] LABS: BASOPHILS 0 % (0-2); EOSINOPHILS 0 % (0-7); HEMATOCRIT 23.8 % (42.0-54.0); HEMOGLOBIN 8.2 g/dL (13.5-17.5); IMMATURE GRANULOCYTES 0.4 % (0-5); LYMPHOCYTES 2.8 % (15-50); MCH 30.8 pg (26.0-34.0); MCHC 34.5 g/dL (31.0-37.0); MCV 89.5 fL (80.0-100.0); MEAN PLATELET VOLUME 10.8 fL (7.4-10.4); NEUTROPHILS 94.8 % (40-80); RBC 2.66 10x6/uL (4.20-6.10); RDW 18.1 % (11.5-14.5); WBC 10.3 10x3/uL (4.8-10.8)
[2017-12-20 06:21] LABS: PLATELET COUNT 43 10x3/uL (130-400)
[2017-12-20 06:32] LABS: APTT 46.7 SECONDS (22.8-39.4); INR 1.57 (0.85-1.17); PROTIME 18.3 SECONDS (11.6-15.0)
[2017-12-20 07:22] LABS: ALBUMIN 3.6 g/dL (3.4-5.0); ANION GAP 20.9 mmol/L (8-16); BILIRUBIN - TOTAL 8.06 mg/dL (0.2-1.3); CALCIUM 7.6 mg/dL (8.5-10.1); CARBON DIOXIDE 25.1 mmol/L (21.0-32.0); CREATININE - SERUM 3.6 mg/dL (0.6-1.3); PROTEIN - SERUM 5.1 g/dL (6.4-8.2)
[2017-12-21] VITALS (25 sets, daily range): BP systolic 105–135; BP diastolic 40–68
[2017-12-21 05:18] LABS: BASOPHILS 0 % (0-2); EOSINOPHILS 0 % (0-7); IMMATURE GRANULOCYTES 0.3 % (0-5); LYMPHOCYTES 4.6 % (15-50); MCH 30.9 pg (26.0-34.0); MCHC 34.7 g/dL (31.0-37.0); MCV 89.2 fL (80.0-100.0); MEAN PLATELET VOLUME 10.4 fL (7.4-10.4); MONOCYTES 1.8 % (2-11); NEUTROPHILS 93.3 % (40-80); RBC 2.23 10x6/uL (4.20-6.10); RDW 18.1 % (11.5-14.5); WBC 9.1 10x3/uL (4.8-10.8)
[2017-12-21 05:29] LABS: ALBUMIN 3.6 g/dL (3.4-5.0); ANION GAP 17.3 mmol/L (8-16); BILIRUBIN - TOTAL 9.67 mg/dL (0.2-1.3); CALCIUM 8.2 mg/dL (8.5-10.1); CARBON DIOXIDE 27.9 mmol/L (21.0-32.0); CREATININE - SERUM 3.1 mg/dL (0.6-1.3); PHOSPHOROUS 4.6 mg/dL (2.5-4.9); PROTEIN - SERUM 5.1 g/dL (6.4-8.2)
[2017-12-21 05:36] LABS: HEMATOCRIT 19.9 % (42.0-54.0); HEMOGLOBIN 6.9 g/dL (13.5-17.5); PLATELET COUNT 42 10x3/uL (130-400)
[2017-12-21 05:38] LABS: MAGNESIUM - SERUM 3.6 mg/dL (1.8-2.4); POTASSIUM - SERUM 5.2 mmol/L (3.5-5.1)
[2017-12-21 07:20] LABS: HEMATOCRIT 17.9 % (42.0-54.0); HEMOGLOBIN 6.3 g/dL (13.5-17.5)
[2017-12-21 08:05] LABS: INR 1.69 (0.85-1.17); PROTIME 19.4 SECONDS (11.6-15.0)
[2017-12-21 09:32] LABS: APTT 34.9 SECONDS (22.8-39.4)
[2017-12-21 11:16] LABS: MCH 30.9 pg (26.0-34.0); MCHC 34.5 g/dL (31.0-37.0); MCV 89.8 fL (80.0-100.0); MEAN PLATELET VOLUME 11.3 fL (7.4-10.4); RBC 2.65 10x6/uL (4.20-6.10); RDW 16.7 % (11.5-14.5); WBC 10.1 10x3/uL (4.8-10.8)
[2017-12-21 11:19] LABS: HEMATOCRIT 23.8 % (42.0-54.0); HEMOGLOBIN 8.2 g/dL (13.5-17.5)
[2017-12-21 17:54] LABS: HEMATOCRIT 22.2 % (42.0-54.0); HEMOGLOBIN 7.7 g/dL (13.5-17.5); MCHC 34.7 g/dL (31.0-37.0); MCV 89.5 fL (80.0-100.0); MEAN PLATELET VOLUME 9.9 fL (7.4-10.4); RBC 2.48 10x6/uL (4.20-6.10); RDW 16.6 % (11.5-14.5); WBC 9.4 10x3/uL (4.8-10.8)
[2017-12-21 18:11] LABS: PLATELET COUNT 63 10x3/uL (130-400)
[2017-12-21 18:47] LABS: PLATELET ESTIMATE DECREASED
[2017-12-21 23:58] LABS: MCH 30.8 pg (26.0-34.0); MCHC 34.8 g/dL (31.0-37.0); MCV 88.6 fL (80.0-100.0); MEAN PLATELET VOLUME 10.4 fL (7.4-10.4); RBC 2.37 10x6/uL (4.20-6.10); RDW 16.7 % (11.5-14.5); WBC 9.5 10x3/uL (4.8-10.8)
[2017-12-22] VITALS (25 sets, daily range): BP systolic 108–157; BP diastolic 40–66
[2017-12-22 00:01] LABS: HEMOGLOBIN 7.3 g/dL (13.5-17.5)
[2017-12-22 06:35] LABS: BASOPHILS 0 % (0-2); EOSINOPHILS 0 % (0-7); HEMATOCRIT 24.9 % (42.0-54.0); HEMOGLOBIN 8.6 g/dL (13.5-17.5); IMMATURE GRANULOCYTES 0.7 % (0-5); LYMPHOCYTES 2.2 % (15-50); MCH 30.5 pg (26.0-34.0); MCHC 34.5 g/dL (31.0-37.0); MCV 88.3 fL (80.0-100.0); MEAN PLATELET VOLUME 11.2 fL (7.4-10.4); MONOCYTES 3.1 % (2-11); PLATELET COUNT 58 10x3/uL (130-400); RBC 2.82 10x6/uL (4.20-6.10); RDW 16.4 % (11.5-14.5); WBC 9.9 10x3/uL (4.8-10.8)
[2017-12-22 06:40] LABS: APTT 34.4 SECONDS (22.8-39.4); INR 1.6 (0.85-1.17); PROTIME 18.5 SECONDS (11.6-15.0)
[2017-12-22 06:48] LABS: ALBUMIN 3.5 g/dL (3.4-5.0); ANION GAP 21.1 mmol/L (8-16); BILIRUBIN - TOTAL 12.51 mg/dL (0.2-1.3); CALCIUM 7.9 mg/dL (8.5-10.1); CARBON DIOXIDE 24.5 mmol/L (21.0-32.0); CREATININE - SERUM 3.8 mg/dL (0.6-1.3); PHOSPHOROUS 4.6 mg/dL (2.5-4.9); POTASSIUM - SERUM 5.6 mmol/L (3.5-5.1); PROTEIN - SERUM 5.2 g/dL (6.4-8.2)
[2017-12-22 06:53] LABS: MAGNESIUM - SERUM 3.5 mg/dL (1.8-2.4)
[2017-12-22 11:42] LABS: HEMATOCRIT 28.3 % (42.0-54.0); HEMOGLOBIN 9.7 g/dL (13.5-17.5); MCH 30.3 pg (26.0-34.0); MCHC 34.3 g/dL (31.0-37.0); MCV 88.4 fL (80.0-100.0); MEAN PLATELET VOLUME 10.3 fL (7.4-10.4); RBC 3.2 10x6/uL (4.20-6.10); RDW 16.5 % (11.5-14.5); WBC 10.1 10x3/uL (4.8-10.8)
[2017-12-22 19:13] LABS: HEMATOCRIT 28.1 % (42.0-54.0); HEMOGLOBIN 9.8 g/dL (13.5-17.5); MCH 30.4 pg (26.0-34.0); MCHC 34.9 g/dL (31.0-37.0); MCV 87.3 fL (80.0-100.0); MEAN PLATELET VOLUME 9.6 fL (7.4-10.4); RBC 3.22 10x6/uL (4.20-6.10); RDW 16.5 % (11.5-14.5); WBC 8.4 10x3/uL (4.8-10.8)
[2017-12-22 22:23] LABS: INR 1.51 (0.85-1.17); PROTIME 17.7 SECONDS (11.6-15.0)
[2017-12-22 23:11] LABS: HEMATOCRIT 28.1 % (42.0-54.0); HEMOGLOBIN 9.7 g/dL (13.5-17.5); MCH 30.2 pg (26.0-34.0); MCHC 34.5 g/dL (31.0-37.0); MCV 87.5 fL (80.0-100.0); MEAN PLATELET VOLUME 9.9 fL (7.4-10.4); RBC 3.21 10x6/uL (4.20-6.10); RDW 16.5 % (11.5-14.5); WBC 8.7 10x3/uL (4.8-10.8)
[2017-12-23] VITALS (30 sets, daily range): BP systolic 115–179; BP diastolic 44–79
[2017-12-23 06:52] LABS: BASOPHILS 0 % (0-2); EOSINOPHILS 0 % (0-7); HEMATOCRIT 26.8 % (42.0-54.0); HEMOGLOBIN 9.2 g/dL (13.5-17.5); IMMATURE GRANULOCYTES 0.8 % (0-5); LYMPHOCYTES 1.1 % (15-50); MCH 30.1 pg (26.0-34.0); MCHC 34.3 g/dL (31.0-37.0); MCV 87.6 fL (80.0-100.0); MEAN PLATELET VOLUME 10.6 fL (7.4-10.4); NEUTROPHILS 96.1 % (40-80); PLATELET COUNT 51 10x3/uL (130-400); RBC 3.06 10x6/uL (4.20-6.10); RDW 16.7 % (11.5-14.5); WBC 7.8 10x3/uL (4.8-10.8)
[2017-12-23 06:58] LABS: INR 1.63 (0.85-1.17); PROTIME 18.8 SECONDS (11.6-15.0)
[2017-12-23 07:12] LABS: ALBUMIN 3.5 g/dL (3.4-5.0); ANION GAP 17.6 mmol/L (8-16); BILIRUBIN - TOTAL 14.88 mg/dL (0.2-1.3); CARBON DIOXIDE 26.2 mmol/L (21.0-32.0); CREATININE - SERUM 3.4 mg/dL (0.6-1.3); MAGNESIUM - SERUM 3.3 mg/dL (1.8-2.4); POTASSIUM - SERUM 4.8 mmol/L (3.5-5.1); PROTEIN - SERUM 5.3 g/dL (6.4-8.2)
[2017-12-23 12:46] LABS: HEMATOCRIT 26.9 % (42.0-54.0); HEMOGLOBIN 9.4 g/dL (13.5-17.5); MCH 30.6 pg (26.0-34.0); MCHC 34.9 g/dL (31.0-37.0); MCV 87.6 fL (80.0-100.0); MEAN PLATELET VOLUME 9.8 fL (7.4-10.4); RBC 3.07 10x6/uL (4.20-6.10); WBC 7.1 10x3/uL (4.8-10.8)
[2017-12-23 17:45] LABS: HEMATOCRIT 26.9 % (42.0-54.0); HEMOGLOBIN 9.5 g/dL (13.5-17.5); MCH 30.9 pg (26.0-34.0); MCHC 35.3 g/dL (31.0-37.0); MCV 87.6 fL (80.0-100.0); MEAN PLATELET VOLUME 10.8 fL (7.4-10.4); RBC 3.07 10x6/uL (4.20-6.10); RDW 16.9 % (11.5-14.5); WBC 7.8 10x3/uL (4.8-10.8)
[2017-12-24] VITALS (28 sets, daily range): BP systolic 96–159; BP diastolic 31–95
[2017-12-24 00:41] LABS: HEMATOCRIT 26.7 % (42.0-54.0); HEMOGLOBIN 9.4 g/dL (13.5-17.5); MCHC 35.2 g/dL (31.0-37.0); MCV 88.1 fL (80.0-100.0); MEAN PLATELET VOLUME 9.5 fL (7.4-10.4); RBC 3.03 10x6/uL (4.20-6.10); RDW 18.2 % (11.5-14.5); WBC 7.8 10x3/uL (4.8-10.8)
[2017-12-24 06:19] LABS: APTT 29.1 SECONDS (22.8-39.4); INR 1.66 (0.85-1.17); PROTIME 19.1 SECONDS (11.6-15.0)
[2017-12-24 06:33] LABS: ALBUMIN 3.7 g/dL (3.4-5.0); ANION GAP 19.5 mmol/L (8-16); BILIRUBIN - TOTAL 17.02 mg/dL (0.2-1.3); CALCIUM 8.2 mg/dL (8.5-10.1); CARBON DIOXIDE 24.1 mmol/L (21.0-32.0); CREATININE - SERUM 2.9 mg/dL (0.6-1.3); MAGNESIUM - SERUM 2.9 mg/dL (1.8-2.4); PHOSPHOROUS 3.4 mg/dL (2.5-4.9); POTASSIUM - SERUM 4.6 mmol/L (3.5-5.1); PROTEIN - SERUM 5.6 g/dL (6.4-8.2)
[2017-12-24 06:40] LABS: BASOPHILS 0.1 % (0-2); EOSINOPHILS 0 % (0-7); HEMATOCRIT 27.7 % (42.0-54.0); HEMOGLOBIN 9.5 g/dL (13.5-17.5); IMMATURE GRANULOCYTES 0.5 % (0-5); LYMPHOCYTES 1.6 % (15-50); MCH 30.5 pg (26.0-34.0); MCHC 34.3 g/dL (31.0-37.0); MCV 89.1 fL (80.0-100.0); MEAN PLATELET VOLUME 10.6 fL (7.4-10.4); MONOCYTES 1.9 % (2-11); NEUTROPHILS 95.9 % (40-80); RBC 3.11 10x6/uL (4.20-6.10); RDW 17.1 % (11.5-14.5); WBC 9.1 10x3/uL (4.8-10.8)
[2017-12-24 06:47] LABS: PLATELET COUNT 48 10x3/uL (130-400)
[2017-12-25] VITALS (22 sets, daily range): BP systolic 117–154; BP diastolic 42–74
[2017-12-25 05:24] LABS: INR 1.74 (0.85-1.17); PROTIME 19.8 SECONDS (11.6-15.0)
[2017-12-25 05:28] LABS: ALBUMIN 3.3 g/dL (3.4-5.0); ANION GAP 18.2 mmol/L (8-16); BASOPHILS 0 % (0-2); BILIRUBIN - TOTAL 16.53 mg/dL (0.2-1.3); CARBON DIOXIDE 23.1 mmol/L (21.0-32.0); EOSINOPHILS 0 % (0-7); HEMATOCRIT 23.9 % (42.0-54.0); HEMOGLOBIN 8.2 g/dL (13.5-17.5); IMMATURE GRANULOCYTES 0.4 % (0-5); MCH 30.3 pg (26.0-34.0); MCHC 34.3 g/dL (31.0-37.0); MCV 88.2 fL (80.0-100.0); MEAN PLATELET VOLUME 10.1 fL (7.4-10.4); MONOCYTES 1.1 % (2-11); NEUTROPHILS 95.5 % (40-80); POTASSIUM - SERUM 4.3 mmol/L (3.5-5.1); PROTEIN - SERUM 4.9 g/dL (6.4-8.2); RBC 2.71 10x6/uL (4.20-6.10); RDW 17.1 % (11.5-14.5)
[2017-12-25 05:31] LABS: CREATININE - SERUM 3.7 mg/dL (0.6-1.3)
[2017-12-25 05:42] LABS: PLATELET COUNT 36 10x3/uL (130-400)
[2017-12-26] VITALS (23 sets, daily range): BP systolic 126–162; BP diastolic 44–94
[2017-12-26 06:08] LABS: BASOPHILS 0 % (0-2); EOSINOPHILS 0.4 % (0-7); HEMATOCRIT 27.3 % (42.0-54.0); HEMOGLOBIN 9.5 g/dL (13.5-17.5); IMMATURE GRANULOCYTES 0.4 % (0-5); LYMPHOCYTES 2.3 % (15-50); MCH 30.4 pg (26.0-34.0); MCHC 34.8 g/dL (31.0-37.0); MCV 87.2 fL (80.0-100.0); MEAN PLATELET VOLUME 10.7 fL (7.4-10.4); MONOCYTES 2.5 % (2-11); NEUTROPHILS 94.4 % (40-80); RBC 3.13 10x6/uL (4.20-6.10); RDW 17.4 % (11.5-14.5); WBC 10.2 10x3/uL (4.8-10.8)
[2017-12-26 06:22] LABS: APTT 38.6 SECONDS (22.8-39.4); INR 1.67 (0.85-1.17); PLATELET COUNT 50 10x3/uL (130-400); PROTIME 19.1 SECONDS (11.6-15.0)
[2017-12-26 06:23] LABS: ALBUMIN 3.6 g/dL (3.4-5.0); ANION GAP 17.3 mmol/L (8-16); BILIRUBIN - TOTAL 17.23 mg/dL (0.2-1.3); CARBON DIOXIDE 26.2 mmol/L (21.0-32.0); MAGNESIUM - SERUM 2.6 mg/dL (1.8-2.4); PHOSPHOROUS 2.8 mg/dL (2.5-4.9); PROTEIN - SERUM 5.4 g/dL (6.4-8.2)
[2017-12-26 06:26] LABS: CREATININE - SERUM 2.7 mg/dL (0.6-1.3); POTASSIUM - SERUM 3.5 mmol/L (3.5-5.1)
[2017-12-26 06:37] LABS: D-DIMER-QUANTITATIVE 8.91 ug/mLFEU (0.20-0.54)
[2017-12-26 22:07] LABS: MYCOPLASMA PNEUMO IGG 342 U/mL (0-99)
[2017-12-27] VITALS (25 sets, daily range): BP systolic 118–161; BP diastolic 40–87
[2017-12-27 06:07] LABS: BILIRUBIN - DIRECT 12.34 mg/dL (0.00-0.30)
[2017-12-27 06:43] LABS: BASOPHILS 0 % (0-2); EOSINOPHILS 0.3 % (0-7); HEMATOCRIT 25.3 % (42.0-54.0); HEMOGLOBIN 8.7 g/dL (13.5-17.5); IMMATURE GRANULOCYTES 0.3 % (0-5); LYMPHOCYTES 2.6 % (15-50); MCH 30.1 pg (26.0-34.0); MCHC 34.4 g/dL (31.0-37.0); MCV 87.5 fL (80.0-100.0); MEAN PLATELET VOLUME 10.3 fL (7.4-10.4); MONOCYTES 1.7 % (2-11); NEUTROPHILS 95.1 % (40-80); RBC 2.89 10x6/uL (4.20-6.10); RDW 17.4 % (11.5-14.5); WBC 9.7 10x3/uL (4.8-10.8)
[2017-12-27 06:50] LABS: PLATELET COUNT 33 10x3/uL (130-400)
[2017-12-27 06:56] LABS: ALBUMIN 3.7 g/dL (3.4-5.0); BILIRUBIN - TOTAL 16.18 mg/dL (0.2-1.3); CALCIUM 8.1 mg/dL (8.5-10.1); CARBON DIOXIDE 27.1 mmol/L (21.0-32.0); CREATININE - SERUM 2.7 mg/dL (0.6-1.3); POTASSIUM - SERUM 3.1 mmol/L (3.5-5.1); PROTEIN - SERUM 5.5 g/dL (6.4-8.2)
[2017-12-28] VITALS (24 sets, daily range): BP systolic 105–159; BP diastolic 31–90
[2017-12-28 06:03] LABS: BASOPHILS 0 % (0-2); EOSINOPHILS 0.8 % (0-7); HEMATOCRIT 25.6 % (42.0-54.0); HEMOGLOBIN 8.6 g/dL (13.5-17.5); IMMATURE GRANULOCYTES 0.4 % (0-5); LYMPHOCYTES 4.3 % (15-50); MCH 29.4 pg (26.0-34.0); MCHC 33.6 g/dL (31.0-37.0); MCV 87.4 fL (80.0-100.0); MONOCYTES 0.7 % (2-11); NEUTROPHILS 93.8 % (40-80); RBC 2.93 10x6/uL (4.20-6.10); RDW 17.3 % (11.5-14.5); WBC 8.5 10x3/uL (4.8-10.8)
[2017-12-28 06:25] LABS: ALBUMIN 3.6 g/dL (3.4-5.0); ANION GAP 12.2 mmol/L (8-16); BILIRUBIN - TOTAL 14.81 mg/dL (0.2-1.3); CALCIUM 7.9 mg/dL (8.5-10.1); CARBON DIOXIDE 27.9 mmol/L (21.0-32.0); CREATININE - SERUM 2.5 mg/dL (0.6-1.3); MAGNESIUM - SERUM 2.1 mg/dL (1.8-2.4); PLATELET COUNT 29 10x3/uL (130-400); POTASSIUM - SERUM 3.1 mmol/L (3.5-5.1); PROTEIN - SERUM 5.3 g/dL (6.4-8.2)
[2017-12-28 10:19] LABS: HAPTOGLOBIN <10 mg/dL (34-200)
[2017-12-28 15:30] LABS: ANION GAP 10.9 mmol/L (8-16); CALCIUM 7.7 mg/dL (8.5-10.1); CARBON DIOXIDE 28.5 mmol/L (21.0-32.0); CREATININE - SERUM 2.2 mg/dL (0.6-1.3); POTASSIUM - SERUM 3.4 mmol/L (3.5-5.1)
[2017-12-29] VITALS (24 sets, daily range): BP systolic 92–140; BP diastolic 31–78
[2017-12-29 06:25] LABS: BASOPHILS 0 % (0-2); EOSINOPHILS 0.7 % (0-7); HEMATOCRIT 25.1 % (42.0-54.0); HEMOGLOBIN 8.4 g/dL (13.5-17.5); IMMATURE GRANULOCYTES 0.3 % (0-5); LYMPHOCYTES 3.3 % (15-50); MCH 29.4 pg (26.0-34.0); MCHC 33.5 g/dL (31.0-37.0); MCV 87.8 fL (80.0-100.0); MEAN PLATELET VOLUME 11.2 fL (7.4-10.4); MONOCYTES 2.7 % (2-11); RBC 2.86 10x6/uL (4.20-6.10); RDW 17.5 % (11.5-14.5); WBC 7.3 10x3/uL (4.8-10.8)
[2017-12-29 06:33] LABS: INR 1.65 (0.85-1.17)
[2017-12-29 06:37] LABS: PLATELET COUNT 34 10x3/uL (130-400)
[2017-12-29 06:44] LABS: ALBUMIN 3.8 g/dL (3.4-5.0); ANION GAP 15.4 mmol/L (8-16); BILIRUBIN - TOTAL 14.39 mg/dL (0.2-1.3); CALCIUM 7.8 mg/dL (8.5-10.1); CARBON DIOXIDE 26.2 mmol/L (21.0-32.0); CREATININE - SERUM 2.6 mg/dL (0.6-1.3); MAGNESIUM - SERUM 2.5 mg/dL (1.8-2.4); POTASSIUM - SERUM 3.6 mmol/L (3.5-5.1); PROTEIN - SERUM 5.6 g/dL (6.4-8.2); VANCOMYCIN - RANDOM 10.7 ug/mL (10.0-20.0)
[2017-12-30] VITALS (24 sets, daily range): BP systolic 111–151; BP diastolic 45–74
[2017-12-30 06:32] LABS: BASOPHILS 0 % (0-2); HEMATOCRIT 22.7 % (42.0-54.0); HEMOGLOBIN 7.8 g/dL (13.5-17.5); IMMATURE GRANULOCYTES 0.4 % (0-5); LYMPHOCYTES 4.6 % (15-50); MCH 29.9 pg (26.0-34.0); MCHC 34.4 g/dL (31.0-37.0); MONOCYTES 3.8 % (2-11); NEUTROPHILS 90.2 % (40-80); RBC 2.61 10x6/uL (4.20-6.10); RDW 17.3 % (11.5-14.5)
[2017-12-30 06:39] LABS: PLATELET COUNT 29 10x3/uL (130-400)
[2017-12-30 06:43] LABS: ALBUMIN 3.6 g/dL (3.4-5.0); ANION GAP 17.1 mmol/L (8-16); BILIRUBIN - TOTAL 11.32 mg/dL (0.2-1.3); CALCIUM 7.9 mg/dL (8.5-10.1); CARBON DIOXIDE 24.5 mmol/L (21.0-32.0); CREATININE - SERUM 3.2 mg/dL (0.6-1.3); MAGNESIUM - SERUM 2.6 mg/dL (1.8-2.4); POTASSIUM - SERUM 3.6 mmol/L (3.5-5.1); PROTEIN - SERUM 5.4 g/dL (6.4-8.2)
[2017-12-31] VITALS (24 sets, daily range): BP systolic 111–141; BP diastolic 46–67
[2017-12-31 06:03] LABS: BASOPHILS 0 % (0-2); EOSINOPHILS 2.2 % (0-7); HEMATOCRIT 26.9 % (42.0-54.0); HEMOGLOBIN 9.1 g/dL (13.5-17.5); IMMATURE GRANULOCYTES 0.3 % (0-5); LYMPHOCYTES 7.3 % (15-50); MCH 29.2 pg (26.0-34.0); MCHC 33.8 g/dL (31.0-37.0); MCV 86.2 fL (80.0-100.0); MEAN PLATELET VOLUME 11.3 fL (7.4-10.4); MONOCYTES 3.5 % (2-11); NEUTROPHILS 86.7 % (40-80); RBC 3.12 10x6/uL (4.20-6.10); RDW 17.7 % (11.5-14.5)
[2017-12-31 06:05] LABS: WBC 3.7 10x3/uL (4.8-10.8)
[2017-12-31 06:06] LABS: PLATELET COUNT 40 10x3/uL (130-400)
[2017-12-31 06:34] LABS: ALBUMIN 3.5 g/dL (3.4-5.0); ANION GAP 14.7 mmol/L (8-16); BILIRUBIN - TOTAL 10.26 mg/dL (0.2-1.3); CALCIUM 7.7 mg/dL (8.5-10.1); CARBON DIOXIDE 26.6 mmol/L (21.0-32.0); CREATININE - SERUM 2.6 mg/dL (0.6-1.3); POTASSIUM - SERUM 3.3 mmol/L (3.5-5.1); PROTEIN - SERUM 5.3 g/dL (6.4-8.2)
[2018-01-01] VITALS (24 sets, daily range): BP systolic 109–148; BP diastolic 43–71
[2018-01-01 06:19] LABS: ALBUMIN 3.5 g/dL (3.4-5.0); ANION GAP 15.9 mmol/L (8-16); BILIRUBIN - TOTAL 9.44 mg/dL (0.2-1.3); CALCIUM 7.9 mg/dL (8.5-10.1); MAGNESIUM - SERUM 2.8 mg/dL (1.8-2.4); PROTEIN - SERUM 5.2 g/dL (6.4-8.2)
[2018-01-01 06:20] LABS: POTASSIUM - SERUM 3.9 mmol/L (3.5-5.1)
[2018-01-01 06:32] LABS: BASOPHILS 0 % (0-2); EOSINOPHILS 0.7 % (0-7); HEMATOCRIT 26.1 % (42.0-54.0); HEMOGLOBIN 8.9 g/dL (13.5-17.5); LYMPHOCYTES 8.3 % (15-50); MCH 29.3 pg (26.0-34.0); MCHC 34.1 g/dL (31.0-37.0); MCV 85.9 fL (80.0-100.0); MEAN PLATELET VOLUME 11.8 fL (7.4-10.4); MONOCYTES 5.7 % (2-11); NEUTROPHILS 85.3 % (40-80); RBC 3.04 10x6/uL (4.20-6.10); RDW 17.3 % (11.5-14.5)
[2018-01-01 06:33] LABS: PLATELET COUNT 41 10x3/uL (130-400)
[2018-01-02] VITALS (23 sets, daily range): BP systolic 103–140; BP diastolic 38–80
[2018-01-02 05:39] LABS: BASOPHILS 0 % (0-2); EOSINOPHILS 1.9 % (0-7); HEMATOCRIT 26.2 % (42.0-54.0); HEMOGLOBIN 8.8 g/dL (13.5-17.5); IMMATURE GRANULOCYTES 0.8 % (0-5); LYMPHOCYTES 10.4 % (15-50); MCH 28.7 pg (26.0-34.0); MCHC 33.6 g/dL (31.0-37.0); MCV 85.3 fL (80.0-100.0); MEAN PLATELET VOLUME 11.9 fL (7.4-10.4); MONOCYTES 4.2 % (2-11); NEUTROPHILS 82.7 % (40-80); RBC 3.07 10x6/uL (4.20-6.10); RDW 17.1 % (11.5-14.5); WBC 2.6 10x3/uL (4.8-10.8)
[2018-01-02 05:54] LABS: PLATELET COUNT 37 10x3/uL (130-400)
[2018-01-02 06:06] LABS: ALBUMIN 3.8 g/dL (3.4-5.0); ANION GAP 18.9 mmol/L (8-16); BILIRUBIN - TOTAL 10.71 mg/dL (0.2-1.3); CALCIUM 7.9 mg/dL (8.5-10.1); CARBON DIOXIDE 23.8 mmol/L (21.0-32.0); CREATININE - SERUM 3.5 mg/dL (0.6-1.3); POTASSIUM - SERUM 3.7 mmol/L (3.5-5.1); PROTEIN - SERUM 5.4 g/dL (6.4-8.2)
[2018-01-03] VITALS (23 sets, daily range): BP systolic 110–138; BP diastolic 48–88
[2018-01-03 06:04] LABS: BASOPHILS 0 % (0-2); EOSINOPHILS 2.2 % (0-7); HEMATOCRIT 26.8 % (42.0-54.0); HEMOGLOBIN 9.1 g/dL (13.5-17.5); IMMATURE GRANULOCYTES 0.4 % (0-5); LYMPHOCYTES 10.4 % (15-50); MCV 85.4 fL (80.0-100.0); MEAN PLATELET VOLUME 10.7 fL (7.4-10.4); MONOCYTES 6.7 % (2-11); NEUTROPHILS 80.3 % (40-80); RBC 3.14 10x6/uL (4.20-6.10); RDW 17.1 % (11.5-14.5); WBC 2.7 10x3/uL (4.8-10.8)
[2018-01-03 06:21] LABS: PLATELET COUNT 40 10x3/uL (130-400)
[2018-01-03 06:25] LABS: ALBUMIN 3.6 g/dL (3.4-5.0); ANION GAP 17.2 mmol/L (8-16); BILIRUBIN - TOTAL 10.85 mg/dL (0.2-1.3); CALCIUM 7.7 mg/dL (8.5-10.1); CARBON DIOXIDE 26.2 mmol/L (21.0-32.0); MAGNESIUM - SERUM 2.7 mg/dL (1.8-2.4); PHOSPHOROUS 2.2 mg/dL (2.5-4.9); POTASSIUM - SERUM 3.4 mmol/L (3.5-5.1); PROTEIN - SERUM 5.1 g/dL (6.4-8.2); VANCOMYCIN - RANDOM 22.3 ug/mL (10.0-20.0)
[2018-01-03 06:59] LABS: APTT 58.8 SECONDS (22.8-39.4)
[2018-01-03 07:08] LABS: D-DIMER-QUANTITATIVE 5.42 ug/mLFEU (0.20-0.54)
[2018-01-03 07:09] LABS: INR 1.66 (0.85-1.17); PROTIME 19.1 SECONDS (11.6-15.0)
[2018-01-04] VITALS (24 sets, daily range): BP systolic 92–158; BP diastolic 35–84
[2018-01-04 06:03] LABS: HEMATOCRIT 23.5 % (42.0-54.0); MCH 28.7 pg (26.0-34.0); MCV 84.2 fL (80.0-100.0); MEAN PLATELET VOLUME 10.8 fL (7.4-10.4); RBC 2.79 10x6/uL (4.20-6.10); RDW 16.8 % (11.5-14.5); WBC 2.9 10x3/uL (4.8-10.8)
[2018-01-04 06:13] LABS: PLATELET COUNT 46 10x3/uL (130-400)
[2018-01-04 06:52] LABS: ANION GAP 15.6 mmol/L (8-16); BILIRUBIN - TOTAL 9.29 mg/dL (0.2-1.3); CALCIUM 8.1 mg/dL (8.5-10.1); CARBON DIOXIDE 25.3 mmol/L (21.0-32.0); CREATININE - SERUM 3.6 mg/dL (0.6-1.3); MAGNESIUM - SERUM 2.9 mg/dL (1.8-2.4); POTASSIUM - SERUM 3.9 mmol/L (3.5-5.1); PROTEIN - SERUM 5.6 g/dL (6.4-8.2)
[2018-01-04 06:53] LABS: PROTIME 22.5 SECONDS (11.6-15.0)
[2018-01-04 06:54] LABS: APTT 67.3 SECONDS (22.8-39.4)
[2018-01-04 06:56] LABS: PHOSPHOROUS 2.9 mg/dL (2.5-4.9)
[2018-01-04 06:59] LABS: INR 2.05 (0.85-1.17)
[2018-01-04 07:29] LABS: LYMPHOCYTES 10 % (15-50); MONOCYTES 2 % (2-11); NEUTROPHILS 83 % (40-80); PLATELET ESTIMATE DECREASED
[2018-01-04 09:17] LABS: FOLATE (FOLIC ACID) - SERUM 13.9 ng/mL (>3.0)
[2018-01-05] VITALS (28 sets, daily range): BP systolic 105–144; BP diastolic 41–86
[2018-01-05 06:25] LABS: BASOPHILS 0.3 % (0-2); EOSINOPHILS 1.1 % (0-7); HEMOGLOBIN 9.3 g/dL (13.5-17.5); LYMPHOCYTES 13.1 % (15-50); MCHC 33.2 g/dL (31.0-37.0); MCV 84.3 fL (80.0-100.0); MEAN PLATELET VOLUME 11.3 fL (7.4-10.4); NEUTROPHILS 77.5 % (40-80); RBC 3.32 10x6/uL (4.20-6.10); RDW 17.3 % (11.5-14.5); WBC 3.5 10x3/uL (4.8-10.8)
[2018-01-05 06:27] LABS: PLATELET COUNT 69 10x3/uL (130-400)
[2018-01-05 06:33] LABS: INR 1.71 (0.85-1.17); PROTIME 19.5 SECONDS (11.6-15.0)
[2018-01-05 06:34] LABS: APTT 60.9 SECONDS (22.8-39.4)
[2018-01-05 06:45] LABS: ANION GAP 16.9 mmol/L (8-16); BILIRUBIN - TOTAL 8.63 mg/dL (0.2-1.3); CALCIUM 8.1 mg/dL (8.5-10.1); CARBON DIOXIDE 26.8 mmol/L (21.0-32.0); CREATININE - SERUM 2.8 mg/dL (0.6-1.3); MAGNESIUM - SERUM 2.8 mg/dL (1.8-2.4); PHOSPHOROUS 2.2 mg/dL (2.5-4.9); POTASSIUM - SERUM 3.7 mmol/L (3.5-5.1); PROTEIN - SERUM 6.1 g/dL (6.4-8.2); VANCOMYCIN - RANDOM 20.2 ug/mL (10.0-20.0)
[2018-01-05 16:15] LABS: FUNGUS MYCOLOGY CULTURE Final report (())
[2018-01-06] VITALS (24 sets, daily range): BP systolic 91–129; BP diastolic 36–59
[2018-01-06 06:50] LABS: BASOPHILS 0.2 % (0-2); EOSINOPHILS 2.8 % (0-7); HEMATOCRIT 25.8 % (42.0-54.0); HEMOGLOBIN 8.6 g/dL (13.5-17.5); IMMATURE GRANULOCYTES 2.2 % (0-5); LYMPHOCYTES 7.5 % (15-50); MCH 27.8 pg (26.0-34.0); MCHC 33.3 g/dL (31.0-37.0); MCV 83.5 fL (80.0-100.0); MEAN PLATELET VOLUME 10.2 fL (7.4-10.4); NEUTROPHILS 83.3 % (40-80); PLATELET COUNT 59 10x3/uL (130-400); RBC 3.09 10x6/uL (4.20-6.10)
[2018-01-06 07:08] LABS: ALBUMIN 3.6 g/dL (3.4-5.0); BILIRUBIN - TOTAL 8.03 mg/dL (0.2-1.3); CALCIUM 7.8 mg/dL (8.5-10.1); CARBON DIOXIDE 24.8 mmol/L (21.0-32.0); CREATININE - SERUM 3.3 mg/dL (0.6-1.3); PHOSPHOROUS 1.7 mg/dL (2.5-4.9); POTASSIUM - SERUM 3.8 mmol/L (3.5-5.1); PROTEIN - SERUM 5.4 g/dL (6.4-8.2); VANCOMYCIN - RANDOM 18.8 ug/mL (10.0-20.0)
[2018-01-06 07:23] LABS: PROTIME 22.8 SECONDS (11.6-15.0)
[2018-01-06 07:25] LABS: INR 2.08 (0.85-1.17)
[2018-01-07] VITALS (24 sets, daily range): BP systolic 87–139; BP diastolic 40–76
[2018-01-07 06:24] LABS: BASOPHILS 0.2 % (0-2); HEMOGLOBIN 8.3 g/dL (13.5-17.5); IMMATURE GRANULOCYTES 2.5 % (0-5); LYMPHOCYTES 8.3 % (15-50); MCH 27.7 pg (26.0-34.0); MCHC 33.2 g/dL (31.0-37.0); MCV 83.3 fL (80.0-100.0); MEAN PLATELET VOLUME 10.6 fL (7.4-10.4); MONOCYTES 5.8 % (2-11); NEUTROPHILS 82.2 % (40-80); PLATELET COUNT 59 10x3/uL (130-400); RDW 17.1 % (11.5-14.5); WBC 5.2 10x3/uL (4.8-10.8)
[2018-01-07 06:55] LABS: ALBUMIN 3.7 g/dL (3.4-5.0); ANION GAP 14.4 mmol/L (8-16); BILIRUBIN - TOTAL 7.39 mg/dL (0.2-1.3); MAGNESIUM - SERUM 2.7 mg/dL (1.8-2.4); POTASSIUM - SERUM 3.4 mmol/L (3.5-5.1); PROTEIN - SERUM 5.4 g/dL (6.4-8.2); VANCOMYCIN - RANDOM 16.2 ug/mL (10.0-20.0)
[2018-01-07 07:03] LABS: CREATININE - SERUM 2.4 mg/dL (0.6-1.3); PHOSPHOROUS 1.3 mg/dL (2.5-4.9)
[2018-01-08] VITALS (24 sets, daily range): BP systolic 101–139; BP diastolic 36–68
[2018-01-08 06:00] LABS: BASOPHILS 0.2 % (0-2); EOSINOPHILS 1.3 % (0-7); HEMATOCRIT 25.1 % (42.0-54.0); HEMOGLOBIN 8.4 g/dL (13.5-17.5); IMMATURE GRANULOCYTES 2.2 % (0-5); MCH 27.6 pg (26.0-34.0); MCHC 33.5 g/dL (31.0-37.0); MCV 82.6 fL (80.0-100.0); MEAN PLATELET VOLUME 11.4 fL (7.4-10.4); MONOCYTES 5.2 % (2-11); NEUTROPHILS 84.1 % (40-80); PLATELET COUNT 67 10x3/uL (130-400); RBC 3.04 10x6/uL (4.20-6.10); RDW 16.9 % (11.5-14.5)
[2018-01-08 06:23] LABS: INR 1.82 (0.85-1.17); PROTIME 20.5 SECONDS (11.6-15.0)
[2018-01-08 06:24] LABS: APTT 58.7 SECONDS (22.8-39.4)
[2018-01-08 07:37] LABS: ALBUMIN 3.8 g/dL (3.4-5.0); ANION GAP 17.9 mmol/L (8-16); BILIRUBIN - TOTAL 6.93 mg/dL (0.2-1.3); CALCIUM 7.9 mg/dL (8.5-10.1); CARBON DIOXIDE 24.9 mmol/L (21.0-32.0); CREATININE - SERUM 2.8 mg/dL (0.6-1.3); POTASSIUM - SERUM 3.8 mmol/L (3.5-5.1); PROTEIN - SERUM 5.6 g/dL (6.4-8.2); VANCOMYCIN - RANDOM 14.8 ug/mL (10.0-20.0)
[2018-01-08 20:06] LABS: FACTOR VIII - APTT 52.6 sec (22.9-30.2); FACTOR VIII - APTT 1:1 60 MIN 34.5 sec (22.9-30.2); FACTOR VIII - APTT 1:1 NP 32.9 sec (22.9-30.2); FACTOR VIII ACTIVITY 101 % (57-163)
[2018-01-09] VITALS (24 sets, daily range): BP systolic 98–125; BP diastolic 51–68
[2018-01-09 07:15] LABS: INR 1.74 (0.85-1.17); PROTIME 19.8 SECONDS (11.6-15.0)
[2018-01-09 07:16] LABS: APTT 62.4 SECONDS (22.8-39.4)
[2018-01-09 07:30] LABS: T4 THYROXIN - FREE 0.95 ng/dL (0.76-1.46); THYROID STIMULATING HORMONE 0.44 uIU/mL (0.36-3.74)
[2018-01-09 07:42] LABS: ALBUMIN 3.7 g/dL (3.4-5.0); ANION GAP 15.9 mmol/L (8-16); BILIRUBIN - TOTAL 6.81 mg/dL (0.2-1.3); CALCIUM 7.9 mg/dL (8.5-10.1); CARBON DIOXIDE 26.4 mmol/L (21.0-32.0); CREATININE - SERUM 3.2 mg/dL (0.6-1.3); POTASSIUM - SERUM 4.3 mmol/L (3.5-5.1); PROTEIN - SERUM 5.6 g/dL (6.4-8.2)
[2018-01-09 07:53] LABS: BASOPHILS 0.1 % (0-2); EOSINOPHILS 0.8 % (0-7); HEMATOCRIT 24.1 % (42.0-54.0); IMMATURE GRANULOCYTES 1.3 % (0-5); LYMPHOCYTES 8.5 % (15-50); MCH 27.5 pg (26.0-34.0); MCHC 33.2 g/dL (31.0-37.0); MCV 82.8 fL (80.0-100.0); MEAN PLATELET VOLUME 10.9 fL (7.4-10.4); MONOCYTES 5.7 % (2-11); NEUTROPHILS 83.6 % (40-80); PLATELET COUNT 77 10x3/uL (130-400); RBC 2.91 10x6/uL (4.20-6.10); RDW 16.8 % (11.5-14.5); WBC 7.2 10x3/uL (4.8-10.8)
[2018-01-10] VITALS (23 sets, daily range): BP systolic 102–132; BP diastolic 46–82
[2018-01-10 06:35] LABS: BASOPHILS 0.1 % (0-2); EOSINOPHILS 0.9 % (0-7); HEMATOCRIT 25.3 % (42.0-54.0); HEMOGLOBIN 8.3 g/dL (13.5-17.5); IMMATURE GRANULOCYTES 2.2 % (0-5); LYMPHOCYTES 8.6 % (15-50); MCH 27.3 pg (26.0-34.0); MCHC 32.8 g/dL (31.0-37.0); MCV 83.2 fL (80.0-100.0); MEAN PLATELET VOLUME 10.2 fL (7.4-10.4); MONOCYTES 6.3 % (2-11); NEUTROPHILS 81.9 % (40-80); PLATELET COUNT 78 10x3/uL (130-400); RBC 3.04 10x6/uL (4.20-6.10); RDW 16.9 % (11.5-14.5); WBC 7.8 10x3/uL (4.8-10.8)
[2018-01-10 06:41] LABS: INR 1.75 (0.85-1.17); PROTIME 19.9 SECONDS (11.6-15.0)
[2018-01-10 06:42] LABS: APTT 57.2 SECONDS (22.8-39.4)
[2018-01-10 06:52] LABS: ALBUMIN 3.6 g/dL (3.4-5.0); ANION GAP 15.5 mmol/L (8-16); BILIRUBIN - TOTAL 6.8 mg/dL (0.2-1.3); CALCIUM 8.1 mg/dL (8.5-10.1); CARBON DIOXIDE 27.7 mmol/L (21.0-32.0); CREATININE - SERUM 2.4 mg/dL (0.6-1.3); POTASSIUM - SERUM 4.2 mmol/L (3.5-5.1); PROTEIN - SERUM 5.6 g/dL (6.4-8.2)
[2018-01-11] VITALS (24 sets, daily range): BP systolic 101–139; BP diastolic 40–69
[2018-01-11 05:49] LABS: BASOPHILS 0.2 % (0-2); HEMOGLOBIN 7.6 g/dL (13.5-17.5); IMMATURE GRANULOCYTES 2.4 % (0-5); LYMPHOCYTES 7.3 % (15-50); MCH 27.7 pg (26.0-34.0); MCV 83.9 fL (80.0-100.0); MEAN PLATELET VOLUME 9.9 fL (7.4-10.4); MONOCYTES 6.1 % (2-11); RBC 2.74 10x6/uL (4.20-6.10); RDW 16.8 % (11.5-14.5); WBC 8.3 10x3/uL (4.8-10.8)
[2018-01-11 05:53] LABS: PLATELET COUNT 156 10x3/uL (130-400)
[2018-01-11 06:10] LABS: ANION GAP 15.4 mmol/L (8-16); CALCIUM 7.8 mg/dL (8.5-10.1); CARBON DIOXIDE 27.7 mmol/L (21.0-32.0); CREATININE - SERUM 2.9 mg/dL (0.6-1.3); POTASSIUM - SERUM 4.1 mmol/L (3.5-5.1)
[2018-01-11 06:13] LABS: PHOSPHOROUS 2.3 mg/dL (2.5-4.9)
[2018-01-12] VITALS (20 sets, daily range): BP systolic 97–136; BP diastolic 43–85
[2018-01-12 06:47] LABS: ANION GAP 14.6 mmol/L (8-16); CALCIUM 7.7 mg/dL (8.5-10.1); CREATININE - SERUM 2.5 mg/dL (0.6-1.3); POTASSIUM - SERUM 3.6 mmol/L (3.5-5.1)
[2018-01-12 06:50] LABS: BASOPHILS 0.2 % (0-2); EOSINOPHILS 0.3 % (0-7); HEMOGLOBIN 9.6 g/dL (13.5-17.5); IMMATURE GRANULOCYTES 1.9 % (0-5); LYMPHOCYTES 6.9 % (15-50); MCH 27.9 pg (26.0-34.0); MCHC 33.1 g/dL (31.0-37.0); MCV 84.3 fL (80.0-100.0); MEAN PLATELET VOLUME 10.3 fL (7.4-10.4); MONOCYTES 5.9 % (2-11); NEUTROPHILS 84.8 % (40-80); PLATELET COUNT 133 10x3/uL (130-400); RBC 3.44 10x6/uL (4.20-6.10); RDW 16.7 % (11.5-14.5); WBC 10.7 10x3/uL (4.8-10.8)
[2018-01-12 13:19] LABS: HEP B CORE AB TOTAL Negative (Negative); HEPATITIS C ANTIBODY 0.1 (0.0-0.9)
[2018-01-13] VITALS (24 sets, daily range): BP systolic 90–123; BP diastolic 38–66
[2018-01-13 05:47] LABS: BASOPHILS 0.2 % (0-2); EOSINOPHILS 0.6 % (0-7); HEMATOCRIT 28.5 % (42.0-54.0); HEMOGLOBIN 9.4 g/dL (13.5-17.5); IMMATURE GRANULOCYTES 1.7 % (0-5); LYMPHOCYTES 7.4 % (15-50); MCH 27.8 pg (26.0-34.0); MCV 84.3 fL (80.0-100.0); MEAN PLATELET VOLUME 10.1 fL (7.4-10.4); MONOCYTES 6.8 % (2-11); NEUTROPHILS 83.3 % (40-80); PLATELET COUNT 113 10x3/uL (130-400); RBC 3.38 10x6/uL (4.20-6.10); RDW 16.8 % (11.5-14.5); WBC 9.1 10x3/uL (4.8-10.8)
[2018-01-13 06:01] LABS: ANION GAP 14.7 mmol/L (8-16); CALCIUM 7.7 mg/dL (8.5-10.1); CARBON DIOXIDE 28.4 mmol/L (21.0-32.0); CREATININE - SERUM 2.8 mg/dL (0.6-1.3); PHOSPHOROUS 2.1 mg/dL (2.5-4.9); POTASSIUM - SERUM 4.1 mmol/L (3.5-5.1)
[2018-01-14] VITALS (24 sets, daily range): BP systolic 85–124; BP diastolic 33–61
[2018-01-14 05:56] LABS: BASOPHILS 0.4 % (0-2); EOSINOPHILS 0.5 % (0-7); HEMATOCRIT 27.7 % (42.0-54.0); LYMPHOCYTES 8.5 % (15-50); MCH 27.5 pg (26.0-34.0); MCHC 32.5 g/dL (31.0-37.0); MCV 84.7 fL (80.0-100.0); MEAN PLATELET VOLUME 10.4 fL (7.4-10.4); MONOCYTES 6.3 % (2-11); NEUTROPHILS 83.3 % (40-80); PLATELET COUNT 95 10x3/uL (130-400); RBC 3.27 10x6/uL (4.20-6.10); RDW 16.9 % (11.5-14.5); WBC 7.6 10x3/uL (4.8-10.8)
[2018-01-14 06:55] LABS: ALBUMIN 3.3 g/dL (3.4-5.0); ANION GAP 12.3 mmol/L (8-16); BILIRUBIN - DIRECT 3.77 mg/dL (0.00-0.30); BILIRUBIN - INDIRECT 1.35 mg/dL (0.00-1.00); BILIRUBIN - TOTAL 5.12 mg/dL (0.2-1.3); CALCIUM 7.8 mg/dL (8.5-10.1); CARBON DIOXIDE 29.2 mmol/L (21.0-32.0); CREATININE - SERUM 2.3 mg/dL (0.6-1.3); POTASSIUM - SERUM 3.5 mmol/L (3.5-5.1); PROTEIN - SERUM 5.4 g/dL (6.4-8.2)
[2018-01-15] VITALS (23 sets, daily range): BP systolic 79–115; BP diastolic 36–53
[2018-01-15 06:38] LABS: BASOPHILS 0.3 % (0-2); EOSINOPHILS 0.9 % (0-7); HEMATOCRIT 27.5 % (42.0-54.0); HEMOGLOBIN 8.8 g/dL (13.5-17.5); IMMATURE GRANULOCYTES 1.8 % (0-5); LYMPHOCYTES 9.6 % (15-50); MCH 27.1 pg (26.0-34.0); MCV 84.6 fL (80.0-100.0); MEAN PLATELET VOLUME 10.9 fL (7.4-10.4); MONOCYTES 7.1 % (2-11); NEUTROPHILS 80.3 % (40-80); PLATELET COUNT 95 10x3/uL (130-400); RBC 3.25 10x6/uL (4.20-6.10); RDW 16.7 % (11.5-14.5); WBC 6.8 10x3/uL (4.8-10.8)
[2018-01-15 06:55] LABS: ANION GAP 13.5 mmol/L (8-16); CARBON DIOXIDE 29.3 mmol/L (21.0-32.0); CREATININE - SERUM 2.8 mg/dL (0.6-1.3); PHOSPHOROUS 1.9 mg/dL (2.5-4.9); POTASSIUM - SERUM 3.8 mmol/L (3.5-5.1)
[2018-01-16] VITALS (23 sets, daily range): BP systolic 89–129; BP diastolic 41–82
[2018-01-16 09:19] LABS: BASOPHILS 0.3 % (0-2); HEMATOCRIT 27.4 % (42.0-54.0); HEMOGLOBIN 8.8 g/dL (13.5-17.5); MCH 27.4 pg (26.0-34.0); MCHC 32.1 g/dL (31.0-37.0); MCV 85.4 fL (80.0-100.0); MEAN PLATELET VOLUME 10.3 fL (7.4-10.4); MONOCYTES 7.9 % (2-11); NEUTROPHILS 81.8 % (40-80); PLATELET COUNT 76 10x3/uL (130-400); RBC 3.21 10x6/uL (4.20-6.10); RDW 16.8 % (11.5-14.5); WBC 7.9 10x3/uL (4.8-10.8)
[2018-01-16 09:36] LABS: INR 1.74 (0.85-1.17); PROTIME 19.5 SECONDS (11.6-15.0)
[2018-01-16 09:37] LABS: APTT 58.6 SECONDS (22.8-39.4)
[2018-01-16 09:41] LABS: ANION GAP 10.1 mmol/L (8-16); CARBON DIOXIDE 31.7 mmol/L (21.0-32.0); CREATININE - SERUM 2.5 mg/dL (0.6-1.3); POTASSIUM - SERUM 3.8 mmol/L (3.5-5.1)
[2018-01-16] MEDS ORDERED: BROVANA15 MCG/2 M INH (12:01)
[2018-01-16] MEDS ORDERED: ALBUTEROL2.5 MG/3 M INH (12:01)
[2018-01-16] MEDS ORDERED: ATROVENT 0.02%2.5 ML UPD (12:01)
[2018-01-16] MEDS ORDERED: HYDRALAZINE20 MG/ML IV (12:02)
[2018-01-16] MEDS ORDERED: CORDARONE200 MG PEG (12:02)
[2018-01-16] MEDS ORDERED: NEUTRA-PHOS PAC1 PK1 PEG (12:03)
[2018-01-16] MEDS ORDERED: MORPHINE SUL20 MG/ML SL (12:03)
[2018-01-16] MEDS ORDERED: MUCOMYST 20200 MG/M2 INH (12:03)
[2018-01-16] MEDS ORDERED: PULMICORT0.5 MG/21 UPD (12:05)
[2018-01-16] MEDS ORDERED: ROBITUSSIN DM 110 ML PEG (12:06)
[2018-01-16] MEDS ORDERED: DULCOLAX10 MG/SUPP RC (12:07)
[2018-01-16] MEDS ORDERED: CARAFATE1 G/10 ML NG (12:07)
[2018-01-16] MEDS ORDERED: MIRALAX17 GM PEG (12:07)
[2018-01-16] MEDS ORDERED: METOCLOPRAM5 MG/5 ML PEG (12:07)
[2018-01-16] MEDS ORDERED: CALMOSEPTINE OI71 GM TOPICAL (12:08)
[2018-01-16] MEDS ORDERED: BUMINATE50 ML IV (12:08)
[2018-01-16] MEDS ORDERED: PERIDEX480 ML PO (12:09)
[2018-01-17] VITALS (10 sets, daily range): BP systolic 94–148; BP diastolic 31–63
[2018-01-17 08:29] LABS: HEMOGLOBIN 8.1 g/dL (13.5-17.5); MCH 27.6 pg (26.0-34.0); MCHC 32.4 g/dL (31.0-37.0); MEAN PLATELET VOLUME 10.8 fL (7.4-10.4); RBC 2.94 10x6/uL (4.20-6.10); RDW 16.8 % (11.5-14.5); WBC 6.8 10x3/uL (4.8-10.8)
[2018-01-17 08:41] LABS: ALBUMIN 3.1 g/dL (3.4-5.0); ANION GAP 10.7 mmol/L (8-16); BILIRUBIN - TOTAL 4.61 mg/dL (0.2-1.3); CREATININE - SERUM 2.4 mg/dL (0.6-1.3); POTASSIUM - SERUM 3.7 mmol/L (3.5-5.1); PROTEIN - SERUM 5.1 g/dL (6.4-8.2)
[2018-01-30 12:12] LABS: ACID FAST CULTURE Negative (()); ACID FAST SMEAR Negative (())
== END 2018-01-17 12:04 | DRG 3 ==
LOC: D.OPS 11:34 → D.CVICU 11:35 → D.SDCHOLD 12-29 13:49 → D.CVICU 12-29 13:51
PROVIDERS: General Practice; Internal Medicine; Internal Medicine Cardiovascular Disease; Internal Medicine Gastroenterology; Internal Medicine Medical Oncology; Internal Medicine Nephrology; Internal Medicine Pulmonary Disease; Surgery; Thoracic Surgery (Cardiothoracic Vascular Surgery)
PROC: 02RG0JZ Replacement of Mitral Valve with Synthetic Substitute, Open Approach (ICD-10-PCS; 2017-12-02)
PROC: 0BH17EZ Insertion of Endotracheal Airway into Trachea, Via Natural or Artificial Opening (ICD-10-PCS; 2017-12-02)
PROC: 5A1945Z Respiratory Ventilation, 24-96 Consecutive Hours (ICD-10-PCS; 2017-12-02)
PROC: 02UJ0JZ Supplement Tricuspid Valve with Synthetic Substitute, Open Approach (ICD-10-PCS; principal; 2017-12-02 07:30)
PROC: 5A1955Z Respiratory Ventilation, Greater than 96 Consecutive Hours (ICD-10-PCS; 2017-12-09)
PROC: 0BH17EZ Insertion of Endotracheal Airway into Trachea, Via Natural or Artificial Opening (ICD-10-PCS; 2017-12-09)
PROC: 05H533Z Insertion of Infusion Device into Right Subclavian Vein, Percutaneous Approach (ICD-10-PCS; 2017-12-11)
PROC: 05HY33Z Insertion of Infusion Device into Upper Vein, Percutaneous Approach (ICD-10-PCS; 2017-12-12)
PROC: 5A1D70Z Performance of Urinary Filtration, Intermittent, Less than 6 Hours Per Day (ICD-10-PCS; 2017-12-12)
PROC: 0DJ08ZZ Inspection of Upper Intestinal Tract, Via Natural or Artificial Opening Endoscopic (ICD-10-PCS; 2017-12-19)
PROC: 0B9M8ZX Drainage of Bilateral Lungs, Via Natural or Artificial Opening Endoscopic, Diagnostic (ICD-10-PCS; 2017-12-20)
PROC: 0D978ZX Drainage of Stomach, Pylorus, Via Natural or Artificial Opening Endoscopic, Diagnostic (ICD-10-PCS; 2017-12-20)
PROC: 0DH67UZ Insertion of Feeding Device into Stomach, Via Natural or Artificial Opening (ICD-10-PCS; 2017-12-20)
PROC: 0B113F4 Bypass Trachea to Cutaneous with Tracheostomy Device, Percutaneous Approach (ICD-10-PCS; 2017-12-20 10:00)
PROC: 05HY33Z Insertion of Infusion Device into Upper Vein, Percutaneous Approach (ICD-10-PCS; 2017-12-22)
PROC: 0JH63XZ Insertion of Tunneled Vascular Access Device into Chest Subcutaneous Tissue and Fascia, Percutaneous Approach (ICD-10-PCS; 2018-01-05)
PROC: 05HM33Z Insertion of Infusion Device into Right Internal Jugular Vein, Percutaneous Approach (ICD-10-PCS; 2018-01-05)
PROC: B5131ZA Fluoroscopy of Right Jugular Veins using Low Osmolar Contrast, Guidance (ICD-10-PCS; 2018-01-05)
PROC: 0JBH0ZZ Excision of Left Lower Arm Subcutaneous Tissue and Fascia, Open Approach (ICD-10-PCS; 2018-01-10)
DX: I50.33 Acute on chronic diastolic (congestive) heart failure (principal); J15.6 Pneumonia due to other Gram-negative bacteria; N17.0 Acute kidney failure with tubular necrosis; J95.821 Acute postprocedural respiratory failure; K76.7 Hepatorenal syndrome; J15.5 Pneumonia due to Escherichia coli; K83.1 Obstruction of bile duct; J90 Pleural effusion, not elsewhere classified; E87.0 Hyperosmolality and hypernatremia; E87.3 Alkalosis; I42.9 Cardiomyopathy, unspecified; D62 Acute posthemorrhagic anemia; E46 Unspecified protein-calorie malnutrition; R04.89 Hemorrhage from other sites in respiratory passages; J81.1 Chronic pulmonary edema; I96 Gangrene, not elsewhere classified; K56.7 Ileus, unspecified; D69.6 Thrombocytopenia, unspecified; I34.0 Nonrheumatic mitral (valve) insufficiency; I07.1 Rheumatic tricuspid insufficiency; K76.1 Chronic passive congestion of liver; R60.0 Localized edema; I48.2 Chronic atrial fibrillation; I27.20 Pulmonary hypertension, unspecified; I95.9 Hypotension, unspecified; R09.02 Hypoxemia; E87.6 Hypokalemia; I11.0 Hypertensive heart disease with heart failure; K29.70 Gastritis, unspecified, without bleeding; J40 Bronchitis, not specified as acute or chronic; E88.09 Other disorders of plasma-protein metabolism, not elsewhere classified; E83.41 Hypermagnesemia; E87.5 Hyperkalemia